=== PATIENT | male | born 1960 | race African-American/Black ===

== ENCOUNTER → 2017-05-21 09:09 | Emergency (ER) | payer OTHER | END | disposition left against medical advice (07) | LOC: ER 09:09 | DX: Z53.9 Procedure and treatment not carried out, unspecified reason (principal); M79.604 Pain in right leg ==

== ENCOUNTER 2018-02-17 08:00 | Emergency (ER) | payer SELFPAY ==
[2018-02-17] MEDS ORDERED: ASPIRIN 81 MG TABLET, CHEWABLE PO ONE (08:26)
[2018-02-17] MEDS ORDERED: NITROGLYCERIN 2% OINTMENT 1 GM PACKET TP ONE (08:43)
--- NOTE | 2018-02-17 09:01 | ER Document Report ---
ED General - General Chief Complaint: Chest Pain Stated Complaint: CHEST PAIN Time Seen by Provider: 02/17/18 08:27 Notes: 57-year-old male with a history of stents presents with chest pain onset last night at rest, left chest tightness radiating the left arm. 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 Apparently when he gets the pain he gets short of breath and diaphoretic. It is been intermittent since last night and the current episodes been going on for a couple of hours. Currently 4 out of 10. Patient was seen 2 years ago and ruled out for ACS as an inpatient but did not have a stress test as far as I can tell. TRAVEL OUTSIDE OF THE [place] IN LAST 30 DAYS: No - Related Data Allergies/Adverse Reactions: No Known Allergies Allergy (Verified 02/17/18 08:02) Past Medical History - Social History Smoking Status: Current Every Day Smoker Smoking Education Provided: Yes - The patient ED visit today was directly related to their abuse of tobacco. Family History: CAD, DM - Past Medical History Cardiac Medical History: Reports: Hx Coronary Artery Disease - History of 2 stents. On a blood thinner., Hx Hypertension Endocrine Medical History: Reports: Hx Diabetes Mellitus Type 2 Past Surgical History: Reports: Hx Cardiac Catheterization - w/ stents. Denies : Hx Cardiac Surgery - Immunizations Hx Diphtheria, Pertussis, Tetanus Vaccination: Yes Review of Systems - Review of Systems Notes: REVIEW OF SYSTEMS GEN: Denies fever, chills, weight loss ENT: Denies sore throat, nasal discharge, ear pain EYES: Denies blurry vision, eye pain, discharge CV: D has pain RESP: Denies cough, shortness of breath, wheezing GI: Denies abdominal pain, nausea, vomiting, diarrhea MSK: Denies joint pain/swelling, edema, SKIN: Denies rash, skin lesions LYMPH: Denies swollen glands/lymph nodes NEURO: Denies headache, focal weakness or numbness, dizziness PSYCH: Denies depression, suicidal or homicidal ideation PHYSICAL EXAMINATION General: No acute distress, well-nourished Head: Atraumatic, normocephalic ENT: Mouth normal, oropharynx moist, no exudates or tonsillar enlargement Eyes: Conjunctiva normal, pupils equal, lids normal Neck: No JVD, supple, no guarding CVS: Normal rate, regular rhythm, no murmurs Resp: No resp distress, equal and normal breath sounds bilaterally GI: Nondistended, soft, no tenderness to palpation, no rebound or guarding Ext: No deformities, no edema, normal range of motion in upper and lower ext Back: No CVA or midline TTP Skin: No rash, warm Lymphatic: No lymphadeopathy noted Neuro: Awake, alert. Face symmetric. GCS 15. Physical Exam - Vital signs Vitals: Temp Pulse Resp BP Pulse Ox 98.1 F 75 18 166/79 H 98 02/17/18 08:17 02/17/18 08:17 02/17/18 08:17 02/17/18 08:17 02/17/18 08:17 Course - Re-evaluation Re-evalutation: 02/17/18 09:01 Patient presents with typical chest pain in the setting of known coronary disease as well as [id number] blood pressure. EKG shows some T-wave inversions in the lateral precordial leads, J-point elevation anteriorly, these are all unchanged from prior. Concern for hypertensive urgency/unstable angina but no STEMI based on EKG. Will get troponin initially, treat with Nitropaste for blood pressure and pain and reassess. No clinical evidence for dissection at this time. 02/17/18 09:42 Patient's pain and blood pressure improved with nitroglycerin. His troponin is positive, ruling in an STEMI. He has been given aspirin already so I will add Lovenox and arrange transfer to [facility]. 02/17/18 13:36 Never heard back from [facility]. Spoke with Raffaele Saucedo who accepted patient. We will repeat a troponin if he is still in the ED. - Vital Signs Vital signs: Temp Pulse Resp BP Pulse Ox 98.1 F 75 17 163/89 H 97 02/17/18 08:17 02/17/18 08:17 02/17/18 11:01 02/17/18 11:01 02/17/18 11:01 - Laboratory Result Diagrams: 02/17/18 08:50 02/17/18 08:50 Laboratory results interpreted by me: 02/17/18 02/17/18 08:50 08:50 RDW 14.4 H Sodium 146.6 H - Diagnostic Test Radiology reviewed: Image reviewed, Reports reviewed - EKG Interpretation by Me EKG shows normal: Sinus rhythm Rate: Normal Rhythm: NSR Voltage: Consistant with LVH - J-point elevation V1 V2 similar to prior. ST depression lateral precordial leads similar to prior When compared to previous EKG there are: No significant change Critical Care Note - Critical Care Note Total time excluding time spent on procedures (mins): 32 Comments: The above patient is critically ill. Not including procedures, but including direct re-evaluations, speaking with patient and/or consultants, interpreting results, and documenting, I spent the total amount of minute listed listed above on critical care time Discharge - Discharge Clinical Impression: NSTEMI (non-ST elevated myocardial infarction), Tobacco abuse Condition: Critical Disposition: [facility] Admitting Provider: Hospitalist
[2018-02-17 09:10] LABS: ABSOLUTE BASOPHILS # (AUTO) 0.1 10^3/uL (0.0-0.2); ABSOLUTE EOSINOPHILS # (AUTO) 0.2 10^3/uL (0.0-0.6); ABSOLUTE LYMPHOCYTES (AUTO) 2.2 10^3/uL (0.5-4.7); ABSOLUTE MONOCYTES (AUTO) 0.5 10^3/uL (0.1-1.4); ABSOLUTE NEUT (AUTO) 2.9 10^3/uL (1.7-8.2); BASOPHILS % (AUTO) 1.5 % (0-2); EOSINOPHILS % (AUTO) 2.7 % (0-6); HEMATOCRIT 42.6 % (37.9-51.0); HEMOGLOBIN 14.2 g/dL (13.5-17.0); LYMPHOCYTES % (AUTO) 37.9 % (13-45); MEAN CORPUSCULAR HEMOGLOBIN 29.7 pg (27.0-33.4); MEAN CORPUSCULAR HGB CONC 33.4 g/dL (32.0-36.0); MEAN CORPUSCULAR VOLUME 89 fl (80-97); MONOCYTES % (AUTO) 8.1 % (3-13); PLATELET COUNT 257 10^3/uL (150-450); RED BLOOD COUNT 4.79 10^6/uL (4.35-5.55); RED CELL DISTRIBUTION WIDTH 14.4 % (11.5-14.0); SEGMENTED NEUTROPHILS % (AUTO) 49.8 % (42-78); TOTAL CELLS COUNTED % (AUTO) 100 %; WHITE BLOOD COUNT 5.9 10^3/uL (4.0-10.5)
--- NOTE | 2018-02-17 09:16 | RADIOLOGY REPORT (SQ) ---
EXAM DESCRIPTION: CHEST SINGLE VIEW COMPLETED DATE/TIME: 02/17/2018 8:37 am REASON FOR STUDY: CP COMPARISON: 08/27/2016, 06/03/2015, 12/22/2011 EXAM PARAMETERS: NUMBER OF VIEWS: One view. TECHNIQUE: Single frontal radiographic view of the chest acquired. RADIATION DOSE: NA LIMITATIONS: None. FINDINGS: LUNGS AND PLEURA: No opacities, masses or pneumothorax. No pleural effusion. MEDIASTINUM AND HILAR STRUCTURES: No masses. Contour normal. HEART AND VASCULAR STRUCTURES: Heart normal in size. Normal vasculature. BONES: No acute findings. HARDWARE: None in the chest. OTHER: No other significant finding. IMPRESSION: NO ACUTE RADIOGRAPHIC FINDING IN THE CHEST. TECHNICAL DOCUMENTATION: JOB ID: [id number] [employer]- All Rights Reserved Reading location - IP/workstation name: [email or web address]
[2018-02-17 09:32] LABS: ALANINE AMINOTRANSFERASE 24 U/L (21-72); ALBUMIN 4.2 g/dL (3.5-5.0); ALKALINE PHOSPHATASE 107 U/L (38-126); ANION GAP 12 (5-19); ASPARTATE AMINO TRANSFERASE 30 U/L (17-59); BILIRUBIN,DIRECT 0.2 mg/dL (0.0-0.4); BILIRUBIN,TOTAL 0.2 mg/dL (0.2-1.3); BLOOD UREA NITROGEN 15 mg/dL (7-20); CALCIUM 10.1 mg/dL (8.4-10.2); CARBON DIOXIDE 29 mmol/L (22-30); CHLORIDE 106 mmol/L (98-107); CREATINE KINASE 160 U/L (55-170); GLUCOSE 107 mg/dL (75-110); POTASSIUM 4.1 mmol/L (3.6-5.0); SODIUM 146.6 mmol/L (137-145); TOTAL PROTEIN 7.2 g/dL (6.3-8.2)
--- NOTE | 2018-02-17 09:35 | EKG REPORT ---
SEVERITY:- ABNORMAL ECG - SINUS RHYTHM LVH WITH SECONDARY REPOLARIZATION ABNORMALITY : Confirmed by: Endy Alvares 17-Feb-2018 09:35:02
[2018-02-17 09:36] LABS: CREATINE KINASE MB 1.48 ng/mL (<4.55)
[2018-02-17 09:39] LABS: TROPONIN I 0.218 ng/mL
[2018-02-17] MEDS ORDERED: ENOXAPARIN SODIUM INJ 100 MG/1 ML DISP.SYRIN SUBCUT SCH (10:00)
[2018-02-17 15:29] VITALS: BP 171/81
== END 2018-02-17 16:31 | disposition short-term general hospital (02) ==
LOC: ER 08:00
DX: I21.4 Non-ST elevation (NSTEMI) myocardial infarction (principal); R07.9 Chest pain, unspecified; F17.210 Nicotine dependence, cigarettes, uncomplicated; M79.602 Pain in left arm; R06.02 Shortness of breath; R61 Generalized hyperhidrosis; E11.9 Type 2 diabetes mellitus without complications; I25.10 Atherosclerotic heart disease of native coronary artery without angina pectoris
CPT/HCPCS: 93005; 99291; 96372; 36415; 82553; 82550; 85025; 80053; 84484; 71045; 93010; J1650

== ENCOUNTER 2018-03-10 09:30 | Emergency (ER) | payer SELFPAY ==
[2018-03-10] MEDS ORDERED: ASPIRIN 81 MG TABLET, CHEWABLE PO ONE (10:06)
--- NOTE | 2018-03-10 11:07 | RADIOLOGY REPORT (SQ) ---
EXAM DESCRIPTION: CHEST SINGLE VIEW COMPLETED DATE/TIME: 03/10/2018 10:46 am REASON FOR STUDY: Chest pain COMPARISON: 02/17/2018 EXAM PARAMETERS: NUMBER OF VIEWS: One view. TECHNIQUE: Single frontal radiographic view of the chest acquired. RADIATION DOSE: NA LIMITATIONS: None. FINDINGS: LUNGS AND PLEURA: No opacities, masses or pneumothorax. No pleural effusion. MEDIASTINUM AND HILAR STRUCTURES: No masses. Contour normal. HEART AND VASCULAR STRUCTURES: Cardiac silhouette appears mildly enlarged. BONES: No acute findings. HARDWARE: Patient is status post median sternotomy. OTHER: No other significant finding. IMPRESSION: No acute consolidations or pleural effusions. Cardiac silhouette appears mildly enlarge d. Other findings as noted above TECHNICAL DOCUMENTATION: JOB ID: [id number] [employer]- All Rights Reserved Reading location - IP/workstation name: [email or web address]
[2018-03-10 11:15] LABS: ALANINE AMINOTRANSFERASE 18 U/L (21-72); ALBUMIN 3.1 g/dL (3.5-5.0); ALKALINE PHOSPHATASE 121 U/L (38-126); ANION GAP 13 (5-19); ASPARTATE AMINO TRANSFERASE 22 U/L (17-59); BILIRUBIN,DIRECT 0.4 mg/dL (0.0-0.4); BILIRUBIN,TOTAL 0.5 mg/dL (0.2-1.3); BLOOD UREA NITROGEN 15 mg/dL (7-20); CALCIUM 9.1 mg/dL (8.4-10.2); CARBON DIOXIDE 30 mmol/L (22-30); CHLORIDE 95 mmol/L (98-107); CREATINE KINASE 50 U/L (55-170); POTASSIUM 4.9 mmol/L (3.6-5.0); SODIUM 138.1 mmol/L (137-145); TOTAL PROTEIN 5.8 g/dL (6.3-8.2)
[2018-03-10 11:17] LABS: ABSOLUTE BASOPHILS # (AUTO) 0.1 10^3/uL (0.0-0.2); ABSOLUTE EOSINOPHILS # (AUTO) 0.2 10^3/uL (0.0-0.6); ABSOLUTE LYMPHOCYTES (AUTO) 1.3 10^3/uL (0.5-4.7); ABSOLUTE MONOCYTES (AUTO) 0.6 10^3/uL (0.1-1.4); BASOPHILS % (AUTO) 0.5 % (0-2); EOSINOPHILS % (AUTO) 1.6 % (0-6); HEMATOCRIT 24.1 % (37.9-51.0); LYMPHOCYTES % (AUTO) 13.1 % (13-45); MEAN CORPUSCULAR HEMOGLOBIN 29.3 pg (27.0-33.4); MEAN CORPUSCULAR HGB CONC 32.5 g/dL (32.0-36.0); MEAN CORPUSCULAR VOLUME 90 fl (80-97); MONOCYTES % (AUTO) 5.5 % (3-13); PLATELET COUNT 362 10^3/uL (150-450); RED BLOOD COUNT 2.66 10^6/uL (4.35-5.55); RED CELL DISTRIBUTION WIDTH 14.3 % (11.5-14.0); SEGMENTED NEUTROPHILS % (AUTO) 79.3 % (42-78); TOTAL CELLS COUNTED % (AUTO) 100 %; WHITE BLOOD COUNT 10.1 10^3/uL (4.0-10.5)
[2018-03-10 11:23] LABS: GLUCOSE 409 mg/dL (75-110)
[2018-03-10 11:25] LABS: CREATINE KINASE MB 0.61 ng/mL (<4.55)
[2018-03-10 11:27] LABS: TROPONIN I 0.039 ng/mL
[2018-03-10 11:29] LABS: HEMOGLOBIN 7.8 g/dL (13.5-17.0)
[2018-03-10] MEDS ORDERED: INSULIN REG, HUMAN 100 UNIT/ML 3 ML VIAL (PYX) IV ONE (12:04)
--- NOTE | 2018-03-10 12:59 | EKG REPORT ---
SEVERITY:- ABNORMAL ECG - SINUS RHYTHM PROBABLE LEFT ATRIAL ABNORMALITY LVH WITH SECONDARY REPOLARIZATION ABNORMALITY : Confirmed by: Sathish Spann MD 10-Mar-2018 12:58:53
--- NOTE | 2018-03-10 14:20 | ER Document Report ---
ED Cardiac - General Chief Complaint: Chest Tightness Stated Complaint: CHEST PAIN Time Seen by Provider: 03/10/18 09:52 Mode of Arrival: Ambulatory Information source: Patient Notes: History of present illness-58 years old male who had a coronary artery bypass surgery 1 week ago, this morning started having pain and discomfort over the epigastric region lasted for a while and then dissipated. But came to ED check make sure that is not his heart. He does not have any chest pain now. Or difficulty in breathing or nausea vomiting. No other constitutional symptoms. REVIEW OF SYSTEMS: CONSTITUTIONAL : Denies fever, chills, or sweats. Denies recent illness. EENT: Denies eye, ear, throat, or mouth pain or symptoms. Denies nasal or sinus congestion or discharge. Denies throat, tongue, or mouth swelling or difficulty swallowing. CARDIOVASCULAR: Denies chest pain. Denies palpitations or racing or irregular heart beat. Denies ankle edema. RESPIRATORY: Denies cough, cold, or chest congestion. Denies shortness of breath, difficulty breathing, or wheezing. GASTROINTESTINAL: Denies abdominal pain or distention. Denies nausea, vomiting , or diarrhea. Denies blood in vomitus, stools, or per rectum. Denies black, tarry stools. Denies constipation. GENITOURINARY: Denies difficulty urinating, painful urination, burning, frequency, blood in urine, or discharge. MUSCULOSKELETAL: Denies back or neck pain or stiffness. Denies joint pain or swelling. SKIN: Denies rash, lesions or sores. HEMATOLOGIC : Denies easy bruising or bleeding. LYMPHATIC: Denies swollen, enlarged glands. NEUROLOGICAL: Denies confusion or altered mental status. Denies passing out or loss of consciousness. Denies dizziness or lightheadedness. Denies headache. Denies weakness or paralysis or loss of use of either side. Denies problems with gait or speech. Denies sensory loss, numbness, or tingling. Denies seizures. PSYCHIATRIC: Denies anxiety or stress. Denies depression, suicidal ideation, or homicidal ideation. ALL OTHER SYSTEMS REVIEWED AND NEGATIVE. Dictation was performed using [employer] recognition software PHYSICAL EXAMINATION: GENERAL: Well-appearing, well-nourished and in no acute distress. HEAD: Atraumatic, normocephalic. EYES: Pupils equal round and reactive to light, extraocular movements intact, sclera anicteric, conjunctiva are normal. ENT: Nares patent, oropharynx clear without exudates. Moist mucous membranes. NECK: Normal range of motion, supple without lymphadenopathy Chest wall-postop chest wall tenderness noted, wound has healed very well. LUNGS: Breath sounds clear to auscultation bilaterally and equal. No wheezes rales or rhonchi. HEART: Regular rate and rhythm without murmurs ABDOMEN: Soft, nontender, nondistended abdomen. No guarding, no rebound. No masses appreciated. Musculoskeletal: Normal range of motion, no pitting or edema. No cyanosis. NEUROLOGICAL: Cranial nerves grossly intact. Normal speech, normal gait. Normal sensory, motor exams PSYCH: Normal mood, normal affect. SKIN: Warm, Dry, normal turgor, no rashes or lesions noted. TRAVEL OUTSIDE OF THE [place] IN LAST 30 DAYS: No - HPI Patient complains to provider of: denies: Chest pain, Chest tightness, Palpitations, Shortness of breath, Other Use of: denies: Alcohol, Amphetamines, Bath salts, Caffeine, Cocaine, Decongestants, Other Chest pain location: No: Substernal, Axillary, Back, Pleuritic, Under breast, Other Quality of pain: denies: None, Constant, Intermittent, Mild, Moderate, Severe, Achy, Burning, Constriction, Cramping, Crushing, Dull, Heaviness, Incisional, Indigestion, Numbness, Pressure, Radiating, Sharp, Stabbing, Tearing, Throbbing , Tightness, Tingling, Other Chest pain radiation location: denies: Left jaw, Left arm, Left shoulder, Right jaw, Right arm, Right shoulder, Back, Neck, None Severity now: Mild Pain level currently: 1 Cardiac risk factors: denies: None, Diabetes, Hypertension, Smoker, + Family history, Dyslipidemia, Hx CHF, Hx VT Associated symptoms: denies: None, Abdominal pain, Anxiety, Back pain, Cool extremities, Diaphoresis, Dizziness, Edema, Fatigue, Fever/chills, Headache, Heartburn, Hypotension, Jaw pain, Lightheaded, Nausea/vomiting, Neck pain, Palpitations, Rash, Shortness of breath, Swelling/lump in chest, Syncope, Weakness, Other Exacerbated by: denies: Denies, Sitting, Standing, Activity, Emotional stress, Coughing, Deep breaths, Torso movement, Lying flat, Other - Related Data Allergies/Adverse Reactions: No Known Allergies Allergy (Verified 02/17/18 08:02) Past Medical History - Social History Smoking Status: Former Smoker Cigarette use (# per day): No Chew tobacco use (# tins/day): No Smoking Education Provided: No Drug Abuse: denies: None, Bath salts, Cocaine, Heroin, Marijuana, Methamphetamine, Prescription drugs, Other Lives with: Family Family History: CAD, DM - Past Medical History Cardiac Medical History: Reports: Hx Coronary Artery Disease - History of 2 stents. On a blood thinner., Hx Hypertension Pulmonary Medical History: Denies: None, Hx Asthma, Hx Bronchitis, Hx COPD, Hx Pneumonia, Hx Intubation , Hx Respiratory Failure, Hx Sleep Apnea, Hx Tuberculosis, Other EENT Medical History: Denies: None, Eyes, Ears, Nose, Throat, Other Neurological Medical History: Denies: None, Hx Cerebrovascular Accident, Hx Migraine, Hx Seizures, Other Endocrine Medical History: Reports: Hx Diabetes Mellitus Type 2 Renal/ Medical History: Denies: Hx Peritoneal Dialysis Past Surgical History: Reports: Hx Cardiac Catheterization - w/ stents. Denies : Hx Cardiac Surgery - Immunizations Hx Diphtheria, Pertussis, Tetanus Vaccination: Yes Review of Systems - Review of Systems Constitutional: denies: No symptoms reported, See HPI, Chills, Diaphoresis, Fever, Malaise, Weakness, Other, Weight gain, Weight loss, Recent illness EENT: denies: No symptoms reported, See HPI, Eye pain, Eye discharge, Blurred vision, Tearing, Double vision, Ear pain, Ear discharge, Nose pain, Nose congestion, Nose discharge, Sinus pressure, Sinus discharge, Throat pain, Difficulty swallowing, Throat swelling, Mouth pain, Mouth swelling, Dental problem, Vertigo, Other Cardiovascular: denies: No symptoms reported, See HPI, Chest pain, Palpitations , Heart racing, Orthopnea, Dyspnea, Syncope, Dizziness, Lightheaded, Edema, Other, Paroxysmal Nocturnal Dysp Gastrointestinal: denies: No symptoms reported, See HPI, Abdomen distended, Abdominal pain, Diarrhea, Nausea, Vomiting, Constipation, Blood streaked bowels , Poor appetite, Poor fluid intake, Blood in vomit, Black stools, Rectal bleeding, Last bowel movement, Fecal incontinence, Other Genitourinary: No symptoms reported. denies: See HPI, Burning, Dysuria, Discharge, Frequency, Flank pain, Hematuria, Incontinence, Pain, Urgency, Retention, Other Male Genitourinary: denies: No symptoms reported, See HPI, Erectile dysfunction , Testicular pain, Penile discharge, Other Musculoskeletal: denies: No symptoms reported, See HPI, Back pain, Gout, Joint pain, Joint swelling, Muscle pain, Muscle stiffness, Neck pain, Deformity, Leg swelling, Ankle swelling, Other Skin: denies: No symptoms reported, See HPI, Change in color, Change in hair/ nails, Dryness, Lesions, Lumps, Rash, Other Hematologic/Lymphatic: denies: No symptoms reported, See HPI, Anemia, Blood clots, Easy bleeding, Easy bruising, Enlarged lymph nodes, Swollen glands, Other Neurological/Psychological: denies: No symptoms reported, See HPI, Confusion, Dementia, Depression, Hallucinations, Anxiety, Homicidal ideation, Sensory change, Weakness, Gait changes, Loss of power, Paralysis, Seizure, Lost consciousness, Headaches, Speech impairment, Numbness, Suicidal ideation, Tingling, Tremor, Other Physical Exam - Vital signs Vitals: Temp Pulse Resp Pulse Ox 98.4 F 72 16 96 03/10/18 09:36 03/10/18 09:36 03/10/18 09:36 03/10/18 09:36 Course - Re-evaluation Re-evalutation: 03/10/18 14:55 Second set of enzymes as come down lower. Patient remains comfortable. - Vital Signs Vital signs: Temp Pulse Resp BP Pulse Ox 98.7 F 74 17 177/70 H 96 03/10/18 09:37 03/10/18 09:37 03/10/18 09:37 03/10/18 09:37 03/10/18 10:06 - Laboratory Result Diagrams: 03/10/18 10:30 03/10/18 10:30 Laboratory results interpreted by me: 03/10/18 03/10/18 10:30 10:30 RBC 2.66 L Hgb 7.8 L Hct 24.1 L RDW 14.3 H Seg Neutrophils % 79.3 H Chloride 95 L Glucose 409 H* ALT 18 L Creatine Kinase 50 L Total Protein 5.8 L Albumin 3.1 L - Diagnostic Test Radiology reviewed: Reports reviewed - Chest x-ray did not show any infiltration effusion or pneumothorax Discharge - Discharge Clinical Impression: Chest wall pain, Diabetes 1.5, managed as type 2 Condition: Fair Instructions: Chest Wall Pain ([facility]) Prescriptions: Metformin HCl [Glucophage 500 mg Tablet] 1,000 mg PO BID #60 tablet Referrals: ALVIN HARPER MD [Primary Care Provider] - Follow up as needed
[2018-03-10 15:30] VITALS: BP 164/74
== END 2018-03-10 15:30 | disposition home or self-care (01) ==
LOC: ER 09:30
DX: R07.89 Other chest pain (principal); E11.9 Type 2 diabetes mellitus without complications; I10 Essential (primary) hypertension; I25.10 Atherosclerotic heart disease of native coronary artery without angina pectoris; Z87.891 Personal history of nicotine dependence; Z95.1 Presence of aortocoronary bypass graft; Z95.5 Presence of coronary angioplasty implant and graft
CPT/HCPCS: 93005; 99284; 36415; 82553; 82550; 85025; 80053; 84484; 71045; 93010; J1815

== ENCOUNTER → 2019-03-17 | Outpatient (CLI) | payer MEDICAID ==
[2019-03-17 09:49] LABS: HEMOGLOBIN 12.1 g/dL (13.5-17.0); MEAN CORPUSCULAR HEMOGLOBIN 26.5 pg (27.0-33.4); MEAN CORPUSCULAR HGB CONC 31.8 g/dL (32.0-36.0); MEAN CORPUSCULAR VOLUME 83 fl (80-97); PLATELET COUNT 281 10^3/uL (150-450); RED BLOOD COUNT 4.56 10^6/uL (4.35-5.55); RED CELL DISTRIBUTION WIDTH 15.7 % (11.5-14.0); WHITE BLOOD COUNT 5.8 10^3/uL (4.0-10.5)
[2019-03-17 10:17] LABS: ALANINE AMINOTRANSFERASE 17 U/L (21-72); ALKALINE PHOSPHATASE 106 U/L (38-126); ANION GAP 10 (5-19); ASPARTATE AMINO TRANSFERASE 17 U/L (17-59); BILIRUBIN,DIRECT 0.2 mg/dL (0.0-0.4); BILIRUBIN,TOTAL 0.2 mg/dL (0.2-1.3); BLOOD UREA NITROGEN 16 mg/dL (7-20); CALCIUM 10.2 mg/dL (8.4-10.2); CARBON DIOXIDE 25 mmol/L (22-30); CHLORIDE 108 mmol/L (98-107); GLUCOSE 190 mg/dL (75-110); POTASSIUM 5.2 mmol/L (3.6-5.0); SODIUM 142.8 mmol/L (137-145); TOTAL PROTEIN 7.6 g/dL (6.3-8.2); TRIGLYCERIDES 164 mg/dL (<150)
[2019-03-17 10:24] LABS: VLDL CHOLESTEROL 32.8 mg/dL (10-31)
[2019-03-17 10:42] LABS: DIRECT LDL 54 mg/dL (<100)
[2019-03-18 10:37] LABS: CREATININE URINE 71.8 mg/dL (Not Estab.); MICROALBUMIN URINE 35.7 ug/mL (Not Estab.)
== END ==
LOC: OD 08:42
PROVIDERS: ATTEND Family Medicine Geriatric Medicine
DX: E11.9 Type 2 diabetes mellitus without complications (principal); E78.5 Hyperlipidemia, unspecified; I10 Essential (primary) hypertension; Z79.899 Other long term (current) drug therapy
CPT/HCPCS: 36415; 80053; 80061; 82043; 82570; 83036; 84443; 85027

== ENCOUNTER → 2019-06-08 | Outpatient (CLI) | payer MEDICAID ==
[2019-06-08 08:29] LABS: ABSOLUTE BASOPHILS # (AUTO) 0.1 10^3/uL (0.0-0.2); ABSOLUTE EOSINOPHILS # (AUTO) 0.2 10^3/uL (0.0-0.6); ABSOLUTE LYMPHOCYTES (AUTO) 2.2 10^3/uL (0.5-4.7); ABSOLUTE MONOCYTES (AUTO) 0.4 10^3/uL (0.1-1.4); ABSOLUTE NEUT (AUTO) 2.7 10^3/uL (1.7-8.2); BASOPHILS % (AUTO) 1.2 % (0-2); EOSINOPHILS % (AUTO) 3.4 % (0-6); HEMATOCRIT 36.8 % (37.9-51.0); LYMPHOCYTES % (AUTO) 40.1 % (13-45); MEAN CORPUSCULAR HEMOGLOBIN 27.4 pg (27.0-33.4); MEAN CORPUSCULAR HGB CONC 32.6 g/dL (32.0-36.0); MEAN CORPUSCULAR VOLUME 84 fl (80-97); MONOCYTES % (AUTO) 6.6 % (3-13); PLATELET COUNT 250 10^3/uL (150-450); RED BLOOD COUNT 4.38 10^6/uL (4.35-5.55); RED CELL DISTRIBUTION WIDTH 15.6 % (11.5-14.0); SEGMENTED NEUTROPHILS % (AUTO) 48.7 % (42-78); TOTAL CELLS COUNTED % (AUTO) 100 %; WHITE BLOOD COUNT 5.5 10^3/uL (4.0-10.5)
[2019-06-08 09:07] LABS: ANION GAP 8 (5-19); BLOOD UREA NITROGEN 18 mg/dL (7-20); CALCIUM 9.6 mg/dL (8.4-10.2); CARBON DIOXIDE 27 mmol/L (22-30); CHLORIDE 105 mmol/L (98-107); GLUCOSE 197 mg/dL (75-110); POTASSIUM 4.8 mmol/L (3.6-5.0)
== END ==
LOC: OD 07:13
PROVIDERS: ATTEND Family Medicine
DX: E11.59 Type 2 diabetes mellitus with other circulatory complications (principal); R31.9 Hematuria, unspecified
CPT/HCPCS: 36415; 80048; 83036; 85025

== ENCOUNTER 2019-12-05 07:16 | Emergency (ER) | payer OTHER, MEDICAID ==
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
[2019-12-05 11:31] VITALS: BP 175/80
== END 2019-12-05 11:31 | disposition home or self-care (01) ==
LOC: ER 07:16
DX: S39.012A Strain of muscle, fascia and tendon of lower back, initial encounter (principal); R07.81 Pleurodynia; F17.210 Nicotine dependence, cigarettes, uncomplicated; V59.40XA Driver of pick-up truck or van injured in collision with unspecified motor vehicles in traffic accident, initial encounter; E11.9 Type 2 diabetes mellitus without complications; Z95.1 Presence of aortocoronary bypass graft
CPT/HCPCS: 71046; 72110; 99283

== ENCOUNTER → 2019-12-24 | Outpatient (CLI) | payer MEDICAID, OTHER ==
[2019-12-24 10:52] LABS: ABSOLUTE BASOPHILS # (AUTO) 0.1 10^3/uL (0.0-0.2); ABSOLUTE EOSINOPHILS # (AUTO) 0.2 10^3/uL (0.0-0.6); ABSOLUTE LYMPHOCYTES (AUTO) 1.5 10^3/uL (0.5-4.7); ABSOLUTE MONOCYTES (AUTO) 0.3 10^3/uL (0.1-1.4); ABSOLUTE NEUT (AUTO) 2.2 10^3/uL (1.7-8.2); BASOPHILS % (AUTO) 1.3 % (0-2); EOSINOPHILS % (AUTO) 5.8 % (0-6); HEMATOCRIT 36.4 % (37.9-51.0); HEMOGLOBIN 11.9 g/dL (13.5-17.0); LYMPHOCYTES % (AUTO) 35.2 % (13-45); MEAN CORPUSCULAR HEMOGLOBIN 28.7 pg (27.0-33.4); MEAN CORPUSCULAR HGB CONC 32.7 g/dL (32.0-36.0); MEAN CORPUSCULAR VOLUME 88 fl (80-97); MONOCYTES % (AUTO) 7.1 % (3-13); PLATELET COUNT 204 10^3/uL (150-450); RED BLOOD COUNT 4.16 10^6/uL (4.35-5.55); RED CELL DISTRIBUTION WIDTH 16.6 % (11.5-14.0); SEGMENTED NEUTROPHILS % (AUTO) 50.6 % (42-78); TOTAL CELLS COUNTED % (AUTO) 100 %; WHITE BLOOD COUNT 4.3 10^3/uL (4.0-10.5)
[2019-12-24 10:54] LABS: ALBUMIN 3.9 g/dL (3.5-5.0); ALKALINE PHOSPHATASE 86 U/L (38-126); ANION GAP 6 (5-19); ASPARTATE AMINO TRANSFERASE 29 U/L (17-59); BILIRUBIN,DIRECT 0.4 mg/dL (0.0-0.4); BILIRUBIN,TOTAL 0.5 mg/dL (0.2-1.3); BLOOD UREA NITROGEN 15 mg/dL (7-20); CALCIUM 9.6 mg/dL (8.4-10.2); CARBON DIOXIDE 29 mmol/L (22-30); CHLORIDE 108 mmol/L (98-107); CHOLESTEROL 119.68 mg/dL (0-200); GLUCOSE 108 mg/dL (75-110); POTASSIUM 4.9 mmol/L (3.6-5.0); TRIGLYCERIDES 114 mg/dL (<150)
[2019-12-24 11:06] LABS: DIRECT LDL 67 mg/dL (<100)
[2019-12-26 02:36] LABS: CREATININE URINE 121.4 mg/dL (Not Estab.); MICROALBUMIN URINE 10.5 ug/mL (Not Estab.)
== END ==
LOC: OD 08:29
PROVIDERS: ATTEND Family Medicine Geriatric Medicine
DX: I10 Essential (primary) hypertension (principal); E11.9 Type 2 diabetes mellitus without complications; E78.5 Hyperlipidemia, unspecified; Z79.899 Other long term (current) drug therapy
CPT/HCPCS: 36415; 80053; 80061; 82043; 82570; 83036; 85025

== ENCOUNTER 2020-06-06 09:47 | Inpatient (IN) | payer MEDICAID ==
[2020-06-06] MEDS ORDERED: VANCOMYCIN HCL INJ 1000 MG VIAL IV ONE (10:33)
--- NOTE | 2020-06-06 10:35 | ER Document Report ---
ED Extremity Problem, Lower - General Chief Complaint: Foot Pain Stated Complaint: TOE PAIN Time Seen by Provider: 06/06/20 10:15 Primary Care Provider: AMBAR WALLACE MD [Primary Care Provider] - Follow up as needed Notes: HPI: 60-year-old diabetic male who presents today stating around 2 weeks ago he cut a "corn" of his left pinky toe. He states since that time is when foot has swollen up. He denies any fevers or vomiting. He states he has some peripheral neuropathy at baseline. He denies any other trauma to his foot. ROS: See HPI All other review of systems reviewed and otherwise negative Reviewed vital signs and nursing note as charted by RN. PHYSICAL EXAM: CONSTITUTIONAL: Alert and oriented and responds appropriately to questions. Well-appearing; well-nourished HEAD: Normocephalic; atraumatic CARD: Regular rate and rhythm; no murmurs; symmetric distal pulses RESP: Normal chest excursion without splinting or tachypnea; breath sounds clear and equal bilaterally; no wheezes, no rhonchi, no rales EXT: Patient has some nonpitting edema to the left foot as well as an ulcer-like lesion to the dorsal aspect of the left fifth toe as well as to the medial aspect of the left fifth toe on the lateral aspect of the fourth toe SKIN: No acute lesions noted NEURO: CN 2-12 intact; 5/5 bilateral upper and lower extremity strength with sensation intact to light touch PSYCH: The patient's mood and manner are appropriate. Grooming and personal hygiene are appropriate. TRAVEL OUTSIDE OF THE [place] IN LAST 30 DAYS: No - Related Data Allergies/Adverse Reactions: No Known Allergies Allergy (Verified 06/06/20 10:29) Home Medications: htn. blood thinner Past Medical History - Social History Smoking Status: Current Every Day Smoker Chew tobacco use (# tins/day): No Frequency of alcohol use: None Drug Abuse: None Family History: CAD, DM Patient has homicidal ideation: No - Past Medical History Cardiac Medical History: Reports: Hx Coronary Artery Disease - History of 2 stents. On a blood thinner., Hx Hypertension Pulmonary Medical History: Denies: Hx Asthma, Hx Bronchitis, Hx COPD, Hx Pneumonia, Hx Intubation, Hx Respiratory Failure, Hx Sleep Apnea, Hx Tuberculosis Neurological Medical History: Denies: Hx Cerebrovascular Accident, Hx Migraine, Hx Seizures Endocrine Medical History: Reports: Hx Diabetes Mellitus Type 2 Renal/ Medical History: Denies: Hx Peritoneal Dialysis Past Surgical History: Reports: Hx Cardiac Catheterization - w/ stents. Denies: Hx Cardiac Surgery - Immunizations Hx Diphtheria, Pertussis, Tetanus Vaccination: Yes Physical Exam - Vital signs Vitals: Temp Pulse Resp BP Pulse Ox 98.5 F 83 16 169/89 H 100 06/06/20 09:51 06/06/20 09:51 06/06/20 09:51 06/06/20 09:51 06/06/20 09:51 Course - Re-evaluation Re-evalutation: 06/06/20 10:35 Given the above history and physical I am concerned about the possibility of a diabetic foot infection. I will obtain basic labs as well as an x-ray of the foot to evaluate for osteomyelitis. I will provide a dose of antibiotics at this time. 06/06/20 11:43 I called and spoke directly to Dr. Davis. He states he himself actually sent the patient here 2 days ago to be admitted but the patient did not come directly here and waited at home. He would like the patient admitted for IV antibiotics. - Vital Signs Vital signs: Temp Pulse Resp BP Pulse Ox 98.5 F 83 16 169/89 H 100 06/06/20 09:51 06/06/20 09:51 06/06/20 09:51 06/06/20 09:51 06/06/20 09:51 - Laboratory Result Diagrams: 06/06/20 10:30 06/06/20 10:30 Laboratory results interpreted by me: 06/06/20 06/06/20 10:30 10:30 RBC 3.47 L Hgb 10.8 L Hct 33.1 L RDW 15.5 H Eos % (Auto) 7.5 H Chloride 109 H Glucose 230 H Discharge - Discharge Clinical Impression: Diabetic infection of left foot Condition: Good Disposition: ADMITTED OBSERVATION Admitting Provider: Luis (Hospitalist) Unit Admitted: Medical Floor Referrals: AMBAR WALLACE MD [Primary Care Provider] - Follow up as needed
[2020-06-06 10:52] LABS: ABSOLUTE BASOPHILS # (AUTO) 0.1 10^3/uL (0.0-0.2); ABSOLUTE EOSINOPHILS # (AUTO) 0.4 10^3/uL (0.0-0.6); ABSOLUTE LYMPHOCYTES (AUTO) 1.4 10^3/uL (0.5-4.7); ABSOLUTE MONOCYTES (AUTO) 0.4 10^3/uL (0.1-1.4); ABSOLUTE NEUT (AUTO) 3.4 10^3/uL (1.7-8.2); BASOPHILS % (AUTO) 1.2 % (0-2); EOSINOPHILS % (AUTO) 7.5 % (0-6); HEMATOCRIT 33.1 % (37.9-51.0); HEMOGLOBIN 10.8 g/dL (13.5-17.0); LYMPHOCYTES % (AUTO) 23.7 % (13-45); MEAN CORPUSCULAR HEMOGLOBIN 31.1 pg (27.0-33.4); MEAN CORPUSCULAR HGB CONC 32.5 g/dL (32.0-36.0); MEAN CORPUSCULAR VOLUME 96 fl (80-97); MONOCYTES % (AUTO) 7.8 % (3-13); PLATELET COUNT 260 10^3/uL (150-450); RED BLOOD COUNT 3.47 10^6/uL (4.35-5.55); RED CELL DISTRIBUTION WIDTH 15.5 % (11.5-14.0); SEGMENTED NEUTROPHILS % (AUTO) 59.8 % (42-78); TOTAL CELLS COUNTED % (AUTO) 100 %; WHITE BLOOD COUNT 5.7 10^3/uL (4.0-10.5)
[2020-06-06 11:17] LABS: ANION GAP 7 (5-19); BLOOD UREA NITROGEN 17 mg/dL (7-20); CALCIUM 9.1 mg/dL (8.4-10.2); CARBON DIOXIDE 24 mmol/L (22-30); CHLORIDE 109 mmol/L (98-107); GLUCOSE 230 mg/dL (75-110); POTASSIUM 4.1 mmol/L (3.6-5.0)
--- NOTE | 2020-06-06 11:18 | RADIOLOGY REPORT (SQ) ---
EXAM DESCRIPTION: FOOT LEFT COMPLETE IMAGES COMPLETED DATE/TIME: 06/06/2020 11:03 am REASON FOR STUDY: 11; ulcers to left 4th and 5th toes; diabetes COMPARISON: None. NUMBER OF VIEWS: Three views. TECHNIQUE: AP, lateral and oblique radiographic images acquired of the left foot. LIMITATIONS: None. FINDINGS: MINERALIZATION: Normal. BONES: Hallux valgus deformity. No acute fracture or dislocation. No conventional radiographic evid ence of osteomyelitis. JOINTS: No effusions. SOFT TISSUES: No soft tissue swelling. No foreign body. OTHER: No other significant finding. IMPRESSION: No conventional radiographic evidence of osteomyelitis. TECHNICAL DOCUMENTATION: JOB ID: [id number] 2010 [employer]- All Rights Reserved Reading location - IP/workstation name: [email or web address]
[2020-06-06] MEDS ORDERED: VANCOMYCIN HCL 0 MG in DEXTROSE 5%-WATER 250 ML IV NR (12:45)
--- NOTE | 2020-06-06 12:45 | PDOC H&P ---
History of Present Illness Admission Date/PCP: 06/06/20 12:39 AMBAR WALLACE MD Patient complains of: Left foot pain History of Present Illness: ELISA WHITFIELD is a 60 year old male presented to the ED at the request of his PCP for left fourth and fifth toe wounds with associated cellulitis. According to the patient he had a "corn" removed from his left "little toe" approximately 2 weeks ago. Subsequently the wound did not heal as expected and the patient developed worsening pain in his left foot. He returned to his PCPs office and was advised to present to the ED for evaluation and treatment. The patient denies fever and chills as well as drainage from the wounds. He does report swelling and pain with ambulation. In the ED an x-ray was completed which revealed normal mineralization with no radiographic evidence of osteomyelitis. The hospitalist service was requested to admit the patient for further evaluation and treatment. Past Medical History Cardiac Medical History: Reports: Coronary Artery Disease - History of 2 stents and CABG x 3 in 2018, Hyperlipidema, Hypertension Pulmonary Medical History: Denies: Asthma, Bronchitis, Chronic Obstructive Pulmonary Disease (COPD), Intubation, Pneumonia, Respiratory Failure, Sleep Apnea, Tuberculosis EENT Medical History: Denies: Cataracts Neurological Medical History: Denies: Hemorrhagic CVA, Ischemic CVA, Migraine, Seizures Endocrine Medical History: Reports: Diabetes Mellitus Type 2 Renal/ Medical History: Denies: Chronic Kidney Disease Malignancy Medical History: Reports: None GI Medical History: Reports: None Musculoskeltal Medical History: Reports: None Skin Medical History: Reports: None Psychiatric Medical History: Denies: Alcohol Dependency, Substance Abuse Traumatic Medical History: Reports: None Hematology: Reports: None Infectious Medical History: Reports: None Past Surgical History Past Surgical History: Reports: Cardiac Catheterization - w/ stents, Coronary Artery Bypass Graft Social History Information Source: Patient, Relative - Paitent's Lives with: Spouse/Significant other Smoking Status: Current Every Day Smoker Electronic Cigarette use?: No Frequency of Alcohol Use: Occasional Hx Recreational Drug Use: No Drugs: None Family History Family History: CAD, DM Parental Family History Reviewed: Yes Children Family History Reviewed: Yes Sibling(s) Family History Reviewed.: Yes Medication/Allergy Home Medications: Lisinopril 20 mg PO DAILY 08/27/16 Aspirin [Ecotrin 81 mg EC Tablet] 81 mg PO DAILY tabec 08/28/16 Clopidogrel Bisulfate [Plavix 75 mg Tablet] 75 mg PO DAILY tablet 08/28/16 Metformin HCl [Glucophage 500 mg Tablet] 1,000 mg PO BID #60 tablet 03/10/18 Atorvastatin Calcium [Lipitor 40 mg Tablet] 40 mg PO QHS 06/06/20 Metoprolol Tartrate [Lopressor 25 mg Tablet] 25 mg PO Q12 06/06/20 Allergies/Adverse Reactions: No Known Allergies Allergy (Verified 06/06/20 10:29) Review of Systems Constitutional: ABSENT: anorexia, chills, fatigue, fever(s), night sweats Eyes: ABSENT: visual disturbances Ears: ABSENT: hearing changes Nose, Mouth, and Throat: PRESENT: other - Poor dentition Cardiovascular: PRESENT: edema - Left foot. ABSENT: chest pain, dyspnea on exertion, orthropnea Respiratory: ABSENT: cough, dyspnea Gastrointestinal: ABSENT: abdominal pain, bloating, coffee ground emesis, constipation, diarrhea, dysphagia, heartburn, hematochezia, melena, nausea, vomiting Musculoskeletal: ABSENT: back pain Integumentary: PRESENT: wounds - Left fourth toe (lateral aspect) with wound noted. Left fifth toe (lateral aspect) with 1 cm x 1 cm open wound approximately 1 cm deep. Erythema noted. No exudate.. ABSENT: diaphoresis Neurological: PRESENT: abnormal gait - 2/2 pain. ABSENT: abnormal speech, frequent falls, memory loss, numbness, paresthesias Psychiatric: ABSENT: anxiety, depression, homidical ideation, suicidal ideation Endocrine: ABSENT: cold intolerance, heat intolerance, polyphagia, polyuria Physical Exam Vital Signs: Temp Pulse Resp BP Pulse Ox 98.5 F 83 16 169/89 H 100 06/06/20 09:51 06/06/20 09:51 06/06/20 09:51 06/06/20 09:51 06/06/20 09:51 Intake & Output 06/05/20 06/06/20 06/07/20 06:59 06:59 06:59 Weight 85.9 kg General appearance: PRESENT: no acute distress, cooperative, well-developed, well-nourished Head exam: PRESENT: atraumatic, normocephalic Eye exam: PRESENT: conjunctiva pink, EOMI, PERRLA Mouth exam: PRESENT: moist, tongue midline Teeth exam: PRESENT: poor dentation Neck exam: PRESENT: full ROM. ABSENT: JVD Respiratory exam: PRESENT: clear to auscultation carole, symmetrical, unlabored. ABSENT: accessory muscle use Cardiovascular exam: PRESENT: irregular rhythm, +S1, +S2 Pulses: PRESENT: normal carotid pulses, other - Pedal pulses 1+/- carole Vascular exam: PRESENT: normal capillary refill GI/Abdominal exam: PRESENT: normal bowel sounds, soft. ABSENT: distended, tenderness Rectal exam: PRESENT: deferred Extremities exam: PRESENT: full ROM, other - 1+ edema left foot. ABSENT: calf tenderness Neurological exam: PRESENT: alert, awake, oriented to person, oriented to place, oriented to time, oriented to situation, CN II-XII grossly intact Psychiatric exam: PRESENT: appropriate affect, normal mood. ABSENT: agitated, anxious Skin exam: PRESENT: dry, warm Results Laboratory Results: 06/06/20 10:30 06/06/20 10:30 06/06/20 06/06/20 10:30 10:30 WBC 5.7 RBC 3.47 L Hgb 10.8 L Hct 33.1 L MCV 96 MCH 31.1 MCHC 32.5 RDW 15.5 H Plt Count 260 Seg Neutrophils % 59.8 Sodium 139.6 Potassium 4.1 Chloride 109 H Carbon Dioxide 24 Anion Gap 7 BUN 17 Creatinine 1.17 Est GFR ( Amer) > 60 Glucose 230 H Calcium 9.1 Impressions: Foot X-Ray 06/06/20 10:32 IMPRESSION: No conventional radiographic evidence of osteomyelitis. Assessment and Plan - Diagnosis (1) Diabetic infection of left foot Is this a current diagnosis for this admission?: Yes Plan: X-ray does not reveal signs of osteomyelitis Check wound culture Check blood cultures Start vancomycin per pharmacy protocol (2) CAD (coronary artery disease) Is this a current diagnosis for this admission?: Yes Plan: Patient denies any chest pain or shortness of breath Continue ASA 81 mg p.o. daily Continue clopidogrel 75 mg p.o. daily (3) Hypertension Qualifiers: Hypertension type: essential hypertension Qualified Code(s): I10 - Essential (primary) hypertension Is this a current diagnosis for this admission?: Yes Plan: BP above goal but patient did not expect to be hospitalized and this may be contributing to his elevated BP Continue metoprolol tartrate 25 mg p.o. daily Continue lisinopril 40 mg p.o. daily If BP remains above goal will increase metoprolol to twice daily dosing (4) Dyslipidemia Is this a current diagnosis for this admission?: Yes Plan: Continue atorvastatin 40 mg p.o. daily at at bedtime (5) Type 2 diabetes mellitus Is this a current diagnosis for this admission?: Yes Plan: Check hemoglobin A1c in a.m. Continue metformin 500 mg p.o. twice daily Add FS BS with SSI correction scale (6) Anemia Is this a current diagnosis for this admission?: Yes Plan: Check iron studies in a.m. Monitor - Time Time Spent with patient: 35 or more minutes Medications reviewed and adjusted accordingly: Yes Anticipated discharge: Home Within: Other
[2020-06-06] MEDS: METFORMIN HCL 500 MG TABLET PO SCH (17:37)
[2020-06-06] MEDS: ACETAMINOPHEN 325 MG TABLET PO PRN (17:42)
[2020-06-06] MEDS ORDERED: DEXTROSE 50%-WATER 25 GM/50 ML DISP.SYRIN IV PRN ×2 (18:48)
[2020-06-06] MEDS ORDERED: GLUCAGON,HUMAN RECOMB 1 MG INJ IM PRN (18:48)
[2020-06-06] MEDS ORDERED: DEXTROSE 40% GEL 15 GM TUBE PO PRN ×2 (18:48)
[2020-06-06] MEDS: INSULIN LISPRO 100 UNIT/ML 3 ML VIAL SUBCUT SCH (21:46)
[2020-06-06] MEDS: ATORVASTATIN CALCIUM 40 MG TABLET PO SCH (21:46)
[2020-06-06] MEDS: VANCOMYCIN HCL 1,000 MG in DEXTROSE 5%-WATER 250 ML IV SCH (21:58)
[2020-06-06] MEDS ORDERED: METOPROLOL TARTRATE 25 MG TABLET PO ONE (23:45)
[2020-06-06] MEDS ORDERED: LISINOPRIL 10 MG TABLET PO ONE (23:45)
[2020-06-07] MEDS: HYDRALAZINE HCL INJ/PF 20 MG/1 ML SDV IV PRN (04:13)
[2020-06-07] MEDS: ACETAMINOPHEN 325 MG TABLET PO PRN (04:14)
[2020-06-07 06:38] LABS: ABSOLUTE BASOPHILS # (AUTO) 0.1 10^3/uL (0.0-0.2); ABSOLUTE EOSINOPHILS # (AUTO) 0.4 10^3/uL (0.0-0.6); ABSOLUTE LYMPHOCYTES (AUTO) 1.5 10^3/uL (0.5-4.7); ABSOLUTE MONOCYTES (AUTO) 0.5 10^3/uL (0.1-1.4); ABSOLUTE NEUT (AUTO) 3.8 10^3/uL (1.7-8.2); ABSOLUTE RETICS # 0.051 10^6/uL (0.028-0.122); BASOPHILS % (AUTO) 1.1 % (0-2); EOSINOPHILS % (AUTO) 6.2 % (0-6); HEMATOCRIT 34.5 % (37.9-51.0); HEMOGLOBIN 11.2 g/dL (13.5-17.0); MEAN CORPUSCULAR HEMOGLOBIN 30.2 pg (27.0-33.4); MEAN CORPUSCULAR HGB CONC 32.3 g/dL (32.0-36.0); MEAN CORPUSCULAR VOLUME 94 fl (80-97); PLATELET COUNT 275 10^3/uL (150-450); RED CELL DISTRIBUTION WIDTH 15.1 % (11.5-14.0); RETICULOCYTE COUNT (AUTO) 1.37 % (0.66-2.85); SEGMENTED NEUTROPHILS % (AUTO) 60.7 % (42-78); TOTAL CELLS COUNTED % (AUTO) 100 %; WHITE BLOOD COUNT 6.2 10^3/uL (4.0-10.5)
[2020-06-07 07:01] LABS: ANION GAP 7 (5-19); BLOOD UREA NITROGEN 11 mg/dL (7-20); CALCIUM 9.1 mg/dL (8.4-10.2); CARBON DIOXIDE 25 mmol/L (22-30); CHLORIDE 106 mmol/L (98-107); GLUCOSE 144 mg/dL (75-110); IRON(TIBC) 41.7 ug/dL (49-181); POTASSIUM 3.7 mmol/L (3.6-5.0)
[2020-06-07] MEDS: METFORMIN HCL 500 MG TABLET PO SCH ×2 (08:19→19:01)
[2020-06-07] MEDS: INSULIN LISPRO 100 UNIT/ML 3 ML VIAL SUBCUT SCH ×4 (08:20→22:08)
--- NOTE | 2020-06-07 09:25 | EKG REPORT ---
SEVERITY:- ABNORMAL ECG - SINUS RHYTHM MULTIPLE VENTRICULAR PREMATURE COMPLEXES PROBABLE LEFT ATRIAL ABNORMALITY LVH WITH SECONDARY REPOLARIZATION ABNORMALITY PROBABLE INFERIOR INFARCT, AGE INDETERMINATE : Confirmed by: Endy Alvares 07-Jun-2020 09:24:11
[2020-06-07] MEDS ORDERED: METOPROLOL TARTRATE 25 MG TABLET PO SCH (10:00)
[2020-06-07] MEDS: ENOXAPARIN SODIUM INJ 40 MG/0.4 ML DISP.SYRIN SUBCUT SCH (12:05)
[2020-06-07] MEDS: CLOPIDOGREL BISULFATE 75 MG TABLET PO SCH (12:07)
[2020-06-07] MEDS: ASPIRIN 81 MG TABLET, ENT COATED PO SCH (12:07)
[2020-06-07] MEDS: VANCOMYCIN HCL 1,000 MG in DEXTROSE 5%-WATER 250 ML IV SCH ×2 (12:08→22:44)
[2020-06-07] MEDS: LISINOPRIL 10 MG TABLET PO SCH (12:10)
--- NOTE | 2020-06-07 19:04 | PDOC PROGRESS REPORT ---
Subjective Progress Note for:: 06/07/20 Subjective:: No complaints. Denies pain Reason For Visit: CELLULITIS Physical Exam Vital Signs: Temp Pulse Resp BP Pulse Ox 99.5 F 72 18 155/76 H 100 06/07/20 15:14 06/07/20 15:14 06/07/20 15:14 06/07/20 15:14 06/07/20 15:14 Intake & Output 06/06/20 06/07/20 06/08/20 06:59 06:59 06:59 Intake Total 574 920 Balance 574 920 Weight 85.7 kg General appearance: PRESENT: no acute distress, cooperative, well-developed, we ll-nourished Head exam: PRESENT: atraumatic, normocephalic Eye exam: PRESENT: conjunctiva pink Mouth exam: PRESENT: moist, tongue midline Neck exam: ABSENT: JVD Respiratory exam: PRESENT: clear to auscultation carole, symmetrical, unlabored. ABSENT: accessory muscle use Cardiovascular exam: PRESENT: RRR, +S1, +S2 Pulses: PRESENT: normal carotid pulses, normal radial pulses Vascular exam: PRESENT: normal capillary refill GI/Abdominal exam: PRESENT: normal bowel sounds, soft. ABSENT: distended, tenderness Rectal exam: PRESENT: deferred Extremities exam: ABSENT: calf tenderness Musculoskeletal exam: PRESENT: full ROM Neurological exam: PRESENT: alert, awake, oriented to person, oriented to place, oriented to time, oriented to situation, CN II-XII grossly intact. ABSENT: motor sensory deficit Psychiatric exam: ABSENT: agitated, anxious Skin exam: PRESENT: dry, normal color, warm, other - Left fifth toe wound with purulent drainage and foul odor. Left fourth toe wound with intact skin Results Laboratory Results: 06/07/20 05:43 06/07/20 05:43 06/07/20 06/07/20 05:43 05:43 WBC 6.2 RBC 3.70 L Hgb 11.2 L Hct 34.5 L MCV 94 MCH 30.2 MCHC 32.3 RDW 15.1 H Plt Count 275 Seg Neutrophils % 60.7 Retic Count (auto) 1.37 Sodium 138.4 Potassium 3.7 Chloride 106 Carbon Dioxide 25 Anion Gap 7 BUN 11 Creatinine 1.01 Est GFR ( Amer) > 60 Glucose 144 H Calcium 9.1 Iron 41.7 L TIBC 343 % Saturation 12 Ferritin 29.00 Vitamin B12 458.0 Folate 10.10 Impressions: Foot X-Ray 06/06/20 10:32 IMPRESSION: No conventional radiographic evidence of osteomyelitis. Assessment and Plan - Diagnosis (1) Diabetic infection of left foot Is this a current diagnosis for this admission?: Yes Plan: X-ray does not reveal signs of osteomyelitis Gram stain of wound revealing GNR Blood cultures NG at 24 hours Continue vancomycin per pharmacy protocol Add cefepime 2 g IV every 12 hours (2) CAD (coronary artery disease) Is this a current diagnosis for this admission?: Yes Plan: Patient denies any chest pain or shortness of breath Continue ASA 81 mg p.o. daily Continue clopidogrel 75 mg p.o. daily (3) Hypertension Qualifiers: Hypertension type: essential hypertension Qualified Code(s): I10 - Essential (primary) hypertension Is this a current diagnosis for this admission?: Yes Plan: BP remains above goal Increase metoprolol tartrate to 25 mg p.o. every 12 hours Continue lisinopril 40 mg p.o. daily (4) Dyslipidemia Is this a current diagnosis for this admission?: Yes Plan: Continue atorvastatin 40 mg p.o. daily at at bedtime (5) Type 2 diabetes mellitus Is this a current diagnosis for this admission?: Yes Plan: Hemoglobin A1c 5.8 Continue metformin 500 mg p.o. twice daily Continue FS BS with SSI correction scale (6) Anemia Is this a current diagnosis for this admission?: Yes Plan: Iron studies reviewed Start FeSO4 325 mg p.o. daily Monitor - Time Time Spent with patient: 25-34 minutes Medications reviewed and adjusted accordingly: Yes Anticipated discharge: Home Within: Other
[2020-06-07] MEDS ORDERED: CEFEPIME 2 GM/D5W RTU 2 GM/50 ML RTUPB IV SCH (22:00)
[2020-06-07] MEDS: ATORVASTATIN CALCIUM 40 MG TABLET PO SCH (22:08)
[2020-06-07] MEDS: METOPROLOL TARTRATE 25 MG TABLET PO SCH (22:08)
[2020-06-07] MEDS: CEFEPIME HCL 2 GM in DEXTROSE 5%-WATER 50 ML IV SCH (22:09)
[2020-06-08 05:08] LABS: ABSOLUTE BASOPHILS # (AUTO) 0.1 10^3/uL (0.0-0.2); ABSOLUTE EOSINOPHILS # (AUTO) 0.2 10^3/uL (0.0-0.6); ABSOLUTE LYMPHOCYTES (AUTO) 1.6 10^3/uL (0.5-4.7); ABSOLUTE MONOCYTES (AUTO) 0.5 10^3/uL (0.1-1.4); EOSINOPHILS % (AUTO) 3.9 % (0-6); HEMATOCRIT 33.3 % (37.9-51.0); HEMOGLOBIN 11.1 g/dL (13.5-17.0); LYMPHOCYTES % (AUTO) 24.9 % (13-45); MEAN CORPUSCULAR HGB CONC 33.2 g/dL (32.0-36.0); MEAN CORPUSCULAR VOLUME 93 fl (80-97); MONOCYTES % (AUTO) 8.4 % (3-13); PLATELET COUNT 255 10^3/uL (150-450); RED BLOOD COUNT 3.58 10^6/uL (4.35-5.55); RED CELL DISTRIBUTION WIDTH 15.1 % (11.5-14.0); SEGMENTED NEUTROPHILS % (AUTO) 61.8 % (42-78); TOTAL CELLS COUNTED % (AUTO) 100 %; WHITE BLOOD COUNT 6.5 10^3/uL (4.0-10.5)
[2020-06-08 05:33] LABS: BLOOD UREA NITROGEN 12 mg/dL (7-20); CALCIUM 9.3 mg/dL (8.4-10.2); CARBON DIOXIDE 30 mmol/L (22-30); CHLORIDE 104 mmol/L (98-107); GLUCOSE 128 mg/dL (75-110); POTASSIUM 3.9 mmol/L (3.6-5.0)
[2020-06-08 05:43] LABS: ANION GAP 4 (5-19)
[2020-06-08] MEDS: INSULIN LISPRO 100 UNIT/ML 3 ML VIAL SUBCUT SCH ×4 (09:04→21:54)
[2020-06-08] MEDS: METFORMIN HCL 500 MG TABLET PO SCH ×2 (09:43→17:58)
[2020-06-08] MEDS: CLOPIDOGREL BISULFATE 75 MG TABLET PO SCH (09:43)
[2020-06-08] MEDS: LISINOPRIL 10 MG TABLET PO SCH (09:43)
[2020-06-08] MEDS: ASPIRIN 81 MG TABLET, ENT COATED PO SCH (09:44)
[2020-06-08] MEDS: ENOXAPARIN SODIUM INJ 40 MG/0.4 ML DISP.SYRIN SUBCUT SCH (09:44)
[2020-06-08] MEDS: VANCOMYCIN HCL 1,000 MG in DEXTROSE 5%-WATER 250 ML IV SCH ×2 (09:45→22:57)
[2020-06-08] MEDS: METOPROLOL TARTRATE 25 MG TABLET PO SCH ×2 (10:00→21:53)
[2020-06-08 10:34] LABS: VANCOMYCIN,TROUGH 11.8 ug/mL (5.0-20.0)
[2020-06-08] MEDS: CEFEPIME HCL 2 GM in DEXTROSE 5%-WATER 50 ML IV SCH ×2 (11:50→21:53)
[2020-06-08] MEDS: ATORVASTATIN CALCIUM 40 MG TABLET PO SCH (21:53)
--- NOTE | 2020-06-08 22:16 | PDOC PROGRESS REPORT ---
Subjective Progress Note for:: 06/08/20 Subjective:: Patient states that he is feeling well today Reason For Visit: CELLULITIS Physical Exam Vital Signs: Temp Pulse Resp BP Pulse Ox 98.4 F 71 17 168/74 H 100 06/08/20 20:00 06/08/20 20:00 06/08/20 20:00 06/08/20 20:00 06/08/20 20:00 Intake & Output 06/07/20 06/08/20 06/09/20 06:59 06:59 06:59 Intake Total 574 1670 1280 Balance 574 1670 1280 Weight 85.7 kg 85.7 kg General appearance: PRESENT: no acute distress, cooperative Head exam: PRESENT: atraumatic, normocephalic Eye exam: PRESENT: conjunctiva pink Mouth exam: PRESENT: moist, tongue midline Neck exam: PRESENT: full ROM. ABSENT: JVD Respiratory exam: PRESENT: clear to auscultation carole, symmetrical, unlabored. ABSENT: accessory muscle use Cardiovascular exam: PRESENT: RRR, +S1, +S2 Pulses: PRESENT: normal carotid pulses, normal radial pulses Vascular exam: PRESENT: normal capillary refill GI/Abdominal exam: PRESENT: normal bowel sounds, soft. ABSENT: distended, tenderness Rectal exam: PRESENT: deferred Extremities exam: PRESENT: full ROM. ABSENT: calf tenderness, clubbing Neurological exam: PRESENT: alert, awake, oriented to person, oriented to place, oriented to time, oriented to situation, CN II-XII grossly intact Psychiatric exam: ABSENT: agitated, anxious Skin exam: PRESENT: dry, normal color, warm Results Laboratory Results: 06/08/20 04:18 06/08/20 09:54 06/08/20 06/08/20 06/08/20 04:18 04:18 09:54 WBC 6.5 RBC 3.58 L Hgb 11.1 L Hct 33.3 L MCV 93 MCH 31.0 MCHC 33.2 RDW 15.1 H Plt Count 255 Seg Neutrophils % 61.8 Sodium 138.1 Potassium 3.9 Chloride 104 Carbon Dioxide 30 Anion Gap 4 L BUN 12 Creatinine 1.10 1.00 Est GFR ( Amer) > 60 > 60 Glucose 128 H Calcium 9.3 06/06/20 13:04 Foot - Deep Wound Gram Stain - Final Impressions: Foot X-Ray 06/06/20 10:32 IMPRESSION: No conventional radiographic evidence of osteomyelitis. Assessment and Plan - Diagnosis (1) Diabetic infection of left foot Is this a current diagnosis for this admission?: Yes Plan: X-ray does not reveal signs of osteomyelitis Culture with Proteus Mirabilis, Gram stain with 4+ GNR, 4+ GPC, few GPR - sensitivities noted Blood cultures NG at 48 hours Continue vancomycin per pharmacy protocol Stop cefepime Start ceftriaxone IV every 24 hours (2) CAD (coronary artery disease) Is this a current diagnosis for this admission?: Yes Plan: Patient denies any chest pain or shortness of breath Continue ASA 81 mg p.o. daily Continue clopidogrel 75 mg p.o. daily (3) Hypertension Qualifiers: Hypertension type: essential hypertension Qualified Code(s): I10 - Essential (primary) hypertension Is this a current diagnosis for this admission?: Yes Plan: BP remains above goal Increase metoprolol tartrate to 50 mg p.o. every 12 hours Continue lisinopril 40 mg p.o. daily (4) Dyslipidemia Is this a current diagnosis for this admission?: Yes Plan: Continue atorvastatin 40 mg p.o. daily at at bedtime (5) Type 2 diabetes mellitus Is this a current diagnosis for this admission?: Yes Plan: Hemoglobin A1c 5.8 Continue metformin 500 mg p.o. twice daily Continue FS BS with SSI correction scale (6) Anemia Is this a current diagnosis for this admission?: Yes Plan: Iron studies reviewed Continue FeSO4 325 mg p.o. daily Monitor - Time Time Spent with patient: 25-34 minutes Medications reviewed and adjusted accordingly: Yes Anticipated Discharge Disposition: Home, Self Care Anticipated Discharge: Other
[2020-06-08] MEDS: METOPROLOL TARTRATE 50 MG TABLET PO SCH (23:51)
[2020-06-09 07:12] LABS: ANION GAP 5 (5-19); BLOOD UREA NITROGEN 13 mg/dL (7-20); CALCIUM 9.8 mg/dL (8.4-10.2); CARBON DIOXIDE 30 mmol/L (22-30); CHLORIDE 103 mmol/L (98-107); GLUCOSE 126 mg/dL (75-110); POTASSIUM 4.1 mmol/L (3.6-5.0)
[2020-06-09] MEDS: INSULIN LISPRO 100 UNIT/ML 3 ML VIAL SUBCUT SCH ×4 (07:22→21:32)
[2020-06-09] MEDS: METFORMIN HCL 500 MG TABLET PO SCH ×2 (07:31→18:11)
[2020-06-09] MEDS: CEFTRIAXONE 2 GM/D5W RTU 2 GM/50 ML RTUPB IV SCH (11:16)
[2020-06-09] MEDS: ASPIRIN 81 MG TABLET, ENT COATED PO SCH (11:17)
[2020-06-09] MEDS: METOPROLOL TARTRATE 50 MG TABLET PO SCH ×2 (11:17→21:34)
[2020-06-09] MEDS: CLOPIDOGREL BISULFATE 75 MG TABLET PO SCH (11:18)
[2020-06-09] MEDS: ENOXAPARIN SODIUM INJ 40 MG/0.4 ML DISP.SYRIN SUBCUT SCH (11:18)
[2020-06-09] MEDS: LISINOPRIL 10 MG TABLET PO SCH (11:18)
[2020-06-09] MEDS: METOPROLOL TARTRATE 25 MG TABLET PO SCH (11:53)
[2020-06-09] MEDS: VANCOMYCIN HCL 1,000 MG in DEXTROSE 5%-WATER 250 ML IV SCH ×2 (12:34→21:35)
--- NOTE | 2020-06-09 14:28 | PDOC PROGRESS REPORT ---
Subjective Progress Note for:: 06/09/20 Subjective:: Patient states that he feels well Reason For Visit: CELLULITIS Physical Exam Vital Signs: Temp Pulse Resp BP Pulse Ox 98.6 F 68 18 175/71 H 100 06/09/20 04:20 06/09/20 04:20 06/09/20 04:20 06/09/20 04:20 06/09/20 04:20 Intake & Output 06/08/20 06/09/20 06/10/20 06:59 06:59 06:59 Intake Total 1670 1820 Balance 1670 1820 Weight 85.7 kg 85.8 kg General appearance: PRESENT: no acute distress, cooperative, well-developed, well-nourished Head exam: PRESENT: atraumatic, normocephalic Eye exam: PRESENT: conjunctiva pink Mouth exam: PRESENT: moist, tongue midline Neck exam: ABSENT: JVD Respiratory exam: PRESENT: clear to auscultation carole, symmetrical, unlabored. ABSENT: accessory muscle use Cardiovascular exam: PRESENT: RRR, +S1, +S2 Pulses: PRESENT: normal radial pulses Vascular exam: PRESENT: normal capillary refill GI/Abdominal exam: PRESENT: normal bowel sounds, soft. ABSENT: distended Rectal exam: PRESENT: deferred Extremities exam: ABSENT: calf tenderness, clubbing, pedal edema Musculoskeletal exam: PRESENT: ambulatory Neurological exam: PRESENT: alert, awake, oriented to person, oriented to place, oriented to time, oriented to situation, CN II-XII grossly intact Psychiatric exam: PRESENT: appropriate affect, normal mood. ABSENT: agitated, anxious Skin exam: PRESENT: dry, normal color, warm Results Laboratory Results: 06/08/20 04:18 06/09/20 06:21 06/09/20 06:21 Sodium 137.9 Potassium 4.1 Chloride 103 Carbon Dioxide 30 Anion Gap 5 BUN 13 Creatinine 1.13 Est GFR ( Amer) > 60 Glucose 126 H Calcium 9.8 06/06/20 13:04 Foot - Deep Wound Gram Stain - Final Impressions: Foot X-Ray 06/06/20 10:32 IMPRESSION: No conventional radiographic evidence of osteomyelitis. Assessment and Plan - Diagnosis (1) Diabetic infection of left foot Is this a current diagnosis for this admission?: Yes Plan: X-ray does not reveal signs of osteomyelitis Culture with Proteus Mirabilis, Gram stain with 4+ GNR, 4+ GPC, few GPR - sensitivities noted Blood cultures NG at 72 hours Continue vancomycin per pharmacy protocol Continue ceftriaxone IV every 24 hours (2) CAD (coronary artery disease) Is this a current diagnosis for this admission?: Yes (3) Hypertension Qualifiers: Hypertension type: essential hypertension Qualified Code(s): I10 - Essential (primary) hypertension Is this a current diagnosis for this admission?: Yes Plan: BP remains above goal Increase metoprolol tartrate to 50 mg p.o. every 12 hours, patient received first 50 mg dose today Continue lisinopril 40 mg p.o. daily (4) Dyslipidemia Is this a current diagnosis for this admission?: Yes Plan: Continue atorvastatin 40 mg p.o. daily at at bedtime (5) Type 2 diabetes mellitus Is this a current diagnosis for this admission?: Yes Plan: Hemoglobin A1c 5.8 Continue metformin 500 mg p.o. twice daily Continue FS BS with SSI correction scale (6) Anemia Is this a current diagnosis for this admission?: Yes Plan: Iron studies reviewed Continue FeSO4 325 mg p.o. daily Monitor - Time Time Spent with patient: 25-34 minutes Medications reviewed and adjusted accordingly: Yes Anticipated Discharge Disposition: Home, Self Care Anticipated Discharge: within 24 hours
[2020-06-09] MEDS: ATORVASTATIN CALCIUM 40 MG TABLET PO SCH (21:35)
[2020-06-10 06:46] LABS: ANION GAP 8 (5-19); BLOOD UREA NITROGEN 15 mg/dL (7-20); CALCIUM 9.5 mg/dL (8.4-10.2); CARBON DIOXIDE 28 mmol/L (22-30); CHLORIDE 102 mmol/L (98-107); GLUCOSE 142 mg/dL (75-110); POTASSIUM 4.1 mmol/L (3.6-5.0)
[2020-06-10] MEDS: INSULIN LISPRO 100 UNIT/ML 3 ML VIAL SUBCUT SCH ×4 (08:08→22:00)
[2020-06-10] MEDS: METFORMIN HCL 500 MG TABLET PO SCH ×2 (08:35→17:55)
[2020-06-10] MEDS: LISINOPRIL 10 MG TABLET PO SCH (10:43)
[2020-06-10] MEDS: CEFTRIAXONE 2 GM/D5W RTU 2 GM/50 ML RTUPB IV SCH (10:43)
[2020-06-10] MEDS: ENOXAPARIN SODIUM INJ 40 MG/0.4 ML DISP.SYRIN SUBCUT SCH (10:43)
[2020-06-10] MEDS: CLOPIDOGREL BISULFATE 75 MG TABLET PO SCH (10:43)
[2020-06-10] MEDS: METOPROLOL TARTRATE 50 MG TABLET PO SCH ×2 (10:43→21:43)
[2020-06-10] MEDS: ASPIRIN 81 MG TABLET, ENT COATED PO SCH (10:43)
[2020-06-10] MEDS: VANCOMYCIN HCL 1,000 MG in DEXTROSE 5%-WATER 250 ML IV SCH ×2 (11:45→21:44)
--- NOTE | 2020-06-10 17:17 | RADIOLOGY REPORT (SQ) ---
EXAM DESCRIPTION: MRI LT LOWER EXTREMITY COMBO IMAGES COMPLETED DATE/TIME: 06/10/2020 4:32 pm REASON FOR STUDY: Rule out osteomyeltis COMPARISON: Radiograph 06/06/2020 TECHNIQUE: Multiplanar T1 and T2 weighted sequences of the left foot pre and post contrast. CONTRAST TYPE AND DOSE: 15 mL ProHance RENAL FUNCTION: GFR > 60. LIMITATIONS: None. FINDINGS: MARROW SIGNAL: Abnormal marrow signal in the 5th proximal phalanx with decreased T1, incre ased T2 signal, and significant enhancement following contrast, this is most suggestive of osteomyel itis.Remaining marrow is within normal limits. JOINT EFFUSION: No significant effusions. PLANTAR FASCIA: Normal as visualized. TARSOMETATARSAL AND TOE ARTICULATIONS: Anatomic. Mild degenerative changes first metatarsal phalange al joint. INTERMETATARSAL SPACES AND PLANTAR PLATES: Intact. No soft tissue mass to suggest a neuroma. SOFT TISSUES: Diffuse dorsal -lateral soft tissue swelling. IMPRESSION: Abnormal marrow signal in the 5th proximal phalanx with decreased T1, increased T2 signa l, and significant enhancement following contrast, this is most suggestive of osteomyelitis. TECHNICAL DOCUMENTATION: JOB ID: [id number] 2010 [employer]- All Rights Reserved Reading location - IP/workstation name: [email or web address]
--- NOTE | 2020-06-10 18:11 | PDOC PROGRESS REPORT ---
Subjective Progress Note for:: 06/10/20 Subjective:: Patient denies fever, chills, and pain. He states overall he feels well and is eager for discharge. Reason For Visit: CELLULITIS Physical Exam Vital Signs: Temp Pulse Resp BP Pulse Ox 97.9 F 67 13 149/72 H 100 06/10/20 10:37 06/10/20 10:37 06/10/20 10:37 06/10/20 10:37 06/10/20 10:37 Intake & Output 06/09/20 06/10/20 06/11/20 06:59 06:59 06:59 Intake Total 1820 1570 900 Balance 1820 1570 900 Weight 85.8 kg 84.6 kg General appearance: PRESENT: no acute distress, cooperative, well-developed, well-nourished Head exam: PRESENT: atraumatic, normocephalic Eye exam: PRESENT: conjunctiva pink Mouth exam: PRESENT: moist, tongue midline Neck exam: ABSENT: JVD Respiratory exam: PRESENT: clear to auscultation carole, symmetrical, unlabored. ABSENT: accessory muscle use Cardiovascular exam: PRESENT: RRR, +S1, +S2 Vascular exam: PRESENT: normal capillary refill GI/Abdominal exam: PRESENT: normal bowel sounds, soft. ABSENT: distended, tenderness Rectal exam: PRESENT: deferred Extremities exam: ABSENT: calf tenderness, pedal edema Neurological exam: PRESENT: alert, awake, oriented to person, oriented to place, oriented to time, oriented to situation, CN II-XII grossly intact. ABSENT: motor sensory deficit Psychiatric exam: PRESENT: appropriate affect, normal mood. ABSENT: agitated, anxious Skin exam: PRESENT: dry, normal color, warm Results Laboratory Results: 06/08/20 04:18 06/10/20 05:42 06/10/20 05:42 Sodium 137.5 Potassium 4.1 Chloride 102 Carbon Dioxide 28 Anion Gap 8 BUN 15 Creatinine 1.04 Est GFR ( Amer) > 60 Glucose 142 H Calcium 9.5 06/06/20 13:04 Foot - Deep Wound Gram Stain - Final 06/06/20 13:04 Foot - Deep Wound Wound Culture - Final Proteus Mirabilis Enterococcus Faecalis(Group D) Skin Shelbie Impressions: Foot X-Ray 06/06/20 10:32 IMPRESSION: No conventional radiographic evidence of osteomyelitis. Lower Extremity MRI 06/10/20 00:00 IMPRESSION: Abnormal marrow signal in the 5th proximal phalanx with decreased T1, increased T2 signal, and significant enhancement following contrast, this is most suggestive of osteomyelitis. Assessment and Plan - Diagnosis (1) Diabetic infection of left foot Is this a current diagnosis for this admission?: Yes Plan: X-ray does not reveal signs of osteomyelitis Wound appears worse today, there is increased drainage which is malodiferous and the wound bed appears to have a bit of necrosis MRI of the foot (reviewed) Culture with Proteus Mirabilis, Gram stain with 4+ GNR, 4+ GPC, few GPR - sensitivities noted Blood cultures NG at 4 days Continue vancomycin per pharmacy protocol Continue ceftriaxone IV every 24 hours (2) Osteomyelitis Is this a current diagnosis for this admission?: Yes Plan: MRI today reveals abnormal marrow signal in the fifth proximal phalanx with decreased T1, increased T2 signal, and significant enhancement following contrast. This is most suggestive of osteomyelitis. Orthopedic surgery consult (3) CAD (coronary artery disease) Is this a current diagnosis for this admission?: Yes Plan: Patient denies any chest pain or shortness of breath Continue ASA 81 mg p.o. daily Continue clopidogrel 75 mg p.o. daily (4) Hypertension Qualifiers: Hypertension type: essential hypertension Qualified Code(s): I10 - Essential (primary) hypertension Is this a current diagnosis for this admission?: Yes Plan: Adequate BP control currently Continue metoprolol tartrate to 50 mg p.o. every 12 hours Continue lisinopril 40 mg p.o. daily (5) Dyslipidemia Is this a current diagnosis for this admission?: Yes Plan: Continue atorvastatin 40 mg p.o. daily at at bedtime (6) Type 2 diabetes mellitus Is this a current diagnosis for this admission?: Yes Plan: Hemoglobin A1c 5.8 Continue metformin 500 mg p.o. twice daily Patient's blood glucose consistently above goal particularly considering active infection Start Lantus (basal) insulin 2 units subcutaneous nightly Continue FS BS with SSI correction scale (7) Anemia Is this a current diagnosis for this admission?: Yes Plan: Iron studies reviewed Continue FeSO4 325 mg p.o. daily Monitor - Time Time Spent with patient: 25-34 minutes Medications reviewed and adjusted accordingly: Yes Anticipated Discharge Disposition: Home, Self Care Anticipated Discharge: Other
[2020-06-10] MEDS: ACETAMINOPHEN 325 MG TABLET PO PRN (20:02)
[2020-06-10] MEDS ORDERED: INSULIN GLARGINE,HUM.REC.ANLOG 1,000 UNIT/10 ML VIAL (PYX) SUBCUT PRN (20:33)
[2020-06-10] MEDS ORDERED: INSULIN GLARGINE,HUM.REC.ANLOG 1,000 UNIT/10 ML VIAL (PYX) SUBCUT ONE (21:40)
[2020-06-10] MEDS: ATORVASTATIN CALCIUM 40 MG TABLET PO SCH (21:43)
[2020-06-10] MEDS: INSULIN GLARGINE,HUM.REC.ANLOG 1,000 UNIT/10 ML VIAL SUBCUT SCH (21:44)
[2020-06-11 05:20] LABS: ANION GAP 6 (5-19); BLOOD UREA NITROGEN 18 mg/dL (7-20); CALCIUM 9.1 mg/dL (8.4-10.2); CARBON DIOXIDE 30 mmol/L (22-30); CHLORIDE 102 mmol/L (98-107); GLUCOSE 133 mg/dL (75-110); POTASSIUM 3.9 mmol/L (3.6-5.0)
--- NOTE | 2020-06-11 07:46 | PDOC CONSULTATION ---
Consultation Consult Date: 06/11/20 Provider Consulted: TAE COLON JR History of Present Illness Admission Date/PCP: 06/06/20 12:22 AMBAR WALLACE MD History of Present Illness: ELISA WHITFIELD is a 60 year old male presented to the hospital for left fourth and fifth toe wounds that have had difficulty healing with associated increasing pain over the last 2 weeks. He denies of history of fever and chills. He is diabetic. Pain is described as aching nature, worse with weightbearing, improved with rest, 4 out of 10. He has diminished sensation to his feet bilaterally given diabetic peripheral neuropathy. He has been in house on antibiotics for the last few days without improvement and with subsequent jose inage from the left fifth toe. Past Medical History Cardiac Medical History: Reports: Coronary Artery Disease - History of 2 stents and CABG x 3 in 2018, Hyperlipidema, Hypertension Pulmonary Medical History: Denies: Asthma, Bronchitis, Chronic Obstructive Pulmonary Disease (COPD), Intubation, Pneumonia, Respiratory Failure, Sleep Apnea, Tuberculosis EENT Medical History: Denies: Cataracts Neurological Medical History: Denies: Hemorrhagic CVA, Ischemic CVA, Migraine, Seizures Endocrine Medical History: Reports: Diabetes Mellitus Type 2 Renal/ Medical History: Denies: Chronic Kidney Disease Malignancy Medical History: Reports: None GI Medical History: Reports: None Musculoskeltal Medical History: Reports: None Skin Medical History: Reports: None Psychiatric Medical History: Denies: Alcohol Dependency, Depression, Substance Abuse Traumatic Medical History: Reports: None Hematology: Reports: None Infectious Medical History: Reports: None Past Surgical History Past Surgical History: Reports: Cardiac Catheterization - w/ stents, Coronary Artery Bypass Graft Social History Lives with: Spouse/Significant other Smoking Status: Current Every Day Smoker Cigarettes Packs Per Day: 1 Electronic Cigarette use?: No Cigars Per Day: 0 Pipes Per Day: 0 Number of Years Smokin Last Time Smoked: 06/05/2020 Frequency of Alcohol Use: Occasional Hx Recreational Drug Use: No Drugs: None Hx Prescription Drug Abuse: No Family History Family History: CAD, DM Parental Family History Reviewed: No Children Family History Reviewed: NA Sibling(s) Family History Reviewed.: NA Medication/Allergy Home Medications: Lisinopril 20 mg PO DAILY 08/27/16 Aspirin [Ecotrin 81 mg EC Tablet] 81 mg PO DAILY tabec 10/13/16 Clopidogrel Bisulfate [Plavix 75 mg Tablet] 75 mg PO DAILY tablet 08/28/16 Metformin HCl [Glucophage 500 mg Tablet] 1,000 mg PO BID #60 tablet 03/10/18 Atorvastatin Calcium [Lipitor 40 mg Tablet] 40 mg PO QHS 06/06/20 Metoprolol Tartrate [Lopressor 25 mg Tablet] 25 mg PO Q12 06/06/20 Allergies/Adverse Reactions: No Known Allergies Allergy (Verified 06/06/20 10:29) Review of Systems Review of Systems: Constitutional: ABSENT: anorexia, chills, night sweats Cardiovascular: ABSENT: chest pain Respiratory: ABSENT: dyspnea Gastrointestinal: ABSENT: vomiting Genitourinary: ABSENT: dysuria Integumentary: ABSENT: rash Neurological: ABSENT: confusion, memory loss, numbness Psychiatric: ABSENT: hallucinations Hematologic/Lymphatic: ABSENT: easy bleeding Physical Exam Vital Signs: Temp Pulse Resp BP Pulse Ox 98.1 F 77 17 124/58 L 97 06/11/20 00:39 06/11/20 00:39 06/11/20 00:39 06/11/20 00:39 06/11/20 00:39 Intake & Output 06/10/20 06/11/20 06/12/20 06:59 06:59 06:59 Intake Total 1570 1500 Balance 1570 1500 Weight 84.6 kg 85.4 kg Physical Exam: General appearance: PRESENT: no acute distress, cooperative, well-nourished Head exam: PRESENT: atraumatic, normocephalic Eye exam: PRESENT: EOMI Ear exam: PRESENT: normal external ear exam Mouth exam: PRESENT: neck supple Neck exam: ABSENT: tracheal deviation Respiratory exam: PRESENT: symmetrical, unlabored. ABSENT: accessory muscle use, wheezes Pulses: PRESENT: normal radial pulses, normal dorsalis pedis pulse Vascular exam: PRESENT: normal capillary refill GI/Abdominal exam: ABSENT: distended, firm Extremities exam: PRESENT: full ROM of bilateral shoulders, elbows wrists, knees, hips and ankles without pain Musculoskeletal exam: PRESENT: full ROM, normal inspection of all 4 extremities aside from that noted below. Neurological exam: PRESENT: alert, awake, oriented to person, oriented to place, oriented to time Psychiatric exam: PRESENT: appropriate affect. ABSENT: agitated Focused psych exam: ABSENT: catatonic Skin exam: PRESENT: intact. ABSENT: dry All as above aside from that noted in the HPI and the following: Left lower extremity -Pulses 2+ distally -Compartments soft -Sensation grossly intact to L3-4-5 S1, overall diminished in the distal foot diffusely. Distal sensation present to deep palpation. -Motor grossly intact to EHL TA gastroc and quad -The left fifth toe has excoriation and what appears to be full-thickness wounds that may communicate with bone on both the medial and lateral portion of the middle phalanx with purulent drainage Results Laboratory Results: 06/08/20 04:18 06/11/20 04:21 06/11/20 04:21 Sodium 137.6 Potassium 3.9 Chloride 102 Carbon Dioxide 30 Anion Gap 6 BUN 18 Creatinine 1.27 H Est GFR ( Amer) > 60 Glucose 133 H Calcium 9.1 06/06/20 13:04 Foot - Deep Wound Gram Stain - Final 06/06/20 13:04 Foot - Deep Wound Wound Culture - Final Proteus Mirabilis Enterococcus Faecalis(Group D) Skin Shelbie Impressions: Foot X-Ray 06/06/20 10:32 IMPRESSION: No conventional radiographic evidence of osteomyelitis. Lower Extremity MRI 06/10/20 00:00 IMPRESSION: Abnormal marrow signal in the 5th proximal phalanx with decreased T1, increased T2 signal, and significant enhancement following contrast, this is most suggestive of osteomyelitis. Assessment & Plan - Diagnosis (1) Osteomyelitis Is this a current diagnosis for this admission?: Yes Plan: I agree that the patient likely has osteomyelitis of the left fifth digit that may require amputation. I will discussed the case with Dr. Sykes, podiatry, and try to set up further care and potential surgical definitive treatment.
[2020-06-11] MEDS: INSULIN LISPRO 100 UNIT/ML 3 ML VIAL SUBCUT SCH ×4 (08:10→21:40)
[2020-06-11] MEDS: CLOPIDOGREL BISULFATE 75 MG TABLET PO SCH (11:45)
[2020-06-11] MEDS: LISINOPRIL 10 MG TABLET PO SCH (11:45)
[2020-06-11] MEDS: CEFTRIAXONE 2 GM/D5W RTU 2 GM/50 ML RTUPB IV SCH (11:45)
[2020-06-11] MEDS: METOPROLOL TARTRATE 50 MG TABLET PO SCH ×2 (11:47→21:40)
[2020-06-11] MEDS: ASPIRIN 81 MG TABLET, ENT COATED PO SCH (11:47)
[2020-06-11] MEDS: METFORMIN HCL 500 MG TABLET PO SCH ×2 (11:47→16:53)
[2020-06-11] MEDS: ENOXAPARIN SODIUM INJ 40 MG/0.4 ML DISP.SYRIN SUBCUT SCH (11:48)
[2020-06-11] MEDS: VANCOMYCIN HCL 1,000 MG in DEXTROSE 5%-WATER 250 ML IV SCH ×2 (12:41→21:39)
[2020-06-11] MEDS ORDERED: LIDOCAINE 2% INJ (20 MG/ML) 20 ML MDV INJ PRN (15:13)
[2020-06-11] MEDS ORDERED: NORMAL SALINE 1000 ML 1,000 ML IV PRN (19:15)
--- NOTE | 2020-06-11 19:19 | PDOC PROGRESS REPORT ---
Subjective Progress Note for:: 06/11/20 Subjective:: Patient lying in bed with no specific complaints Reason For Visit: CELLULITIS Physical Exam Vital Signs: Temp Pulse Resp BP Pulse Ox 97.6 F 56 L 16 156/61 H 100 06/11/20 15:58 06/11/20 15:58 06/11/20 15:58 06/11/20 15:58 06/11/20 15:58 Intake & Output 06/10/20 06/11/20 06/12/20 06:59 06:59 06:59 Intake Total 1570 1750 700 Balance 1570 1750 700 Weight 84.6 kg 85.4 kg General appearance: PRESENT: no acute distress, cooperative, well-developed, well-nourished Head exam: PRESENT: atraumatic, normocephalic Eye exam: PRESENT: conjunctiva pink Mouth exam: PRESENT: moist, tongue midline Neck exam: ABSENT: JVD Respiratory exam: PRESENT: clear to auscultation carole, symmetrical, unlabored Cardiovascular exam: PRESENT: RRR, +S1, +S2 Vascular exam: PRESENT: normal capillary refill GI/Abdominal exam: PRESENT: normal bowel sounds, soft. ABSENT: distended, tenderness Rectal exam: PRESENT: deferred Extremities exam: ABSENT: calf tenderness Musculoskeletal exam: PRESENT: ambulatory Neurological exam: PRESENT: alert, awake, oriented to person, oriented to place, oriented to time, oriented to situation, CN II-XII grossly intact Psychiatric exam: PRESENT: depressed - Slightly depressed affect. ABSENT: agitated, anxious Skin exam: PRESENT: dry, normal color, warm Results Laboratory Results: 06/08/20 04:18 06/11/20 04:21 06/11/20 04:21 Sodium 137.6 Potassium 3.9 Chloride 102 Carbon Dioxide 30 Anion Gap 6 BUN 18 Creatinine 1.27 H Est GFR ( Amer) > 60 Glucose 133 H Calcium 9.1 06/06/20 11:56 Blood Blood Culture - Final NO GROWTH IN 5 DAYS 06/06/20 10:30 Blood Blood Culture - Final NO GROWTH IN 5 DAYS Impressions: Foot X-Ray 06/06/20 10:32 IMPRESSION: No conventional radiographic evidence of osteomyelitis. Lower Extremity MRI 06/10/20 00:00 IMPRESSION: Abnormal marrow signal in the 5th proximal phalanx with decreased T1, increased T2 signal, and significant enhancement following contrast, this is most suggestive of osteomyelitis. Assessment and Plan - Diagnosis (1) Diabetic infection of left foot Is this a current diagnosis for this admission?: Yes Plan: X-ray does not reveal signs of osteomyelitis MRI of the foot (reviewed) Culture with Proteus Mirabilis, Gram stain with 4+ GNR, 4+ GPC, few GPR - sensitivities noted Blood cultures NG at 5 days Continue vancomycin per pharmacy protocol Continue ceftriaxone IV every 24 hours (2) Osteomyelitis Is this a current diagnosis for this admission?: Yes Plan: MRI 06/10/20 reveals abnormal marrow signal in the fifth proximal phalanx with decreased T1, increased T2 signal, and significant enhancement following contrast. This is most suggestive of osteomyelitis. Orthopedic surgery consult Orthopedic surgery input appreciated, per Dr. Hughes he does not typically do toe amputations Consult general surgery (Dr. Ma) to evaluate for possible amputation (3) CAD (coronary artery disease) Is this a current diagnosis for this admission?: Yes Plan: Patient denies any chest pain or shortness of breath Continue ASA 81 mg p.o. daily Continue clopidogrel 75 mg p.o. daily (4) Hypertension Qualifiers: Hypertension type: essential hypertension Qualified Code(s): I10 - Essential (primary) hypertension Is this a current diagnosis for this admission?: Yes Plan: Adequate BP control currently Continue metoprolol tartrate to 50 mg p.o. every 12 hours Continue lisinopril 40 mg p.o. daily (5) Dyslipidemia Is this a current diagnosis for this admission?: Yes Plan: Continue atorvastatin 40 mg p.o. daily at at bedtime (6) Type 2 diabetes mellitus Is this a current diagnosis for this admission?: Yes Plan: Hemoglobin A1c 5.8 Increase today in serum creatinine, stop metformin Patient's blood glucose consistently above goal particularly considering active infection Increase Lantus (basal) insulin 4 units subcutaneous nightly Continue FS BS with SSI correction scale (7) Anemia Is this a current diagnosis for this admission?: Yes Plan: Iron studies reviewed Continue FeSO4 325 mg p.o. daily Monitor (8) EMERY (acute kidney injury) Is this a current diagnosis for this admission?: Yes Plan: Slight bump in serum creatinine today Stop metformin Start NS at 100 cc/h for 1 L Recheck BMP in a.m. - Time Time Spent with patient: 25-34 minutes Medications reviewed and adjusted accordingly: Yes Anticipated Discharge Disposition: Home, Self Care Anticipated Discharge: Other
--- NOTE | 2020-06-11 19:59 | Operative Report ---
Operative Report DATE OF SURGERY: 06/11/20 PREOPERATIVE DIAGNOSIS: 1. Left fifth toe osteomyelitis. 2. Diabetes mellitu s. 3. Smoker POSTOPERATIVE DIAGNOSIS: Same OPERATION: Left fifth toe and metatarsal head amputation, packed open SURGEON: AURA SON ANESTHESIA: Local TISSUE REMOVED OR ALTERED: Left fifth toe COMPLICATIONS: None ESTIMATED BLOOD LOSS: Minimal INTRAOPERATIVE FINDINGS: See below PROCEDURE: The patient was examined in room 430. Left foot was edematous. The left fifth toe had ulceration, with limited drainage. MRI scan revealed findings consistent with osteomyelitis. He has palpable femoral and popliteal pulses. Unable to palpate pulses in foot possibly due to edema. The patient was offered a left fifth toe amputation, with plans for delayed primary closure due to soft tissue infection. Left foot was prepped with Betadine. Surgical timeout conducted. The base of the left fifth toe was anesthetized 1% plain lidocaine. The left toe was amputated with #10 blade and scissors. The proximal phalanx, as well as the head of the left fifth metatarsal, were debrided with bone rongeurs. Bleeding was minimal. Wound irrigated with peroxide, Betadine. The recess of the wound was packed with a small piece of Betadine moistened gauze. 4 interrupted 3-0 Ethilon vertical mattress sutures were placed in the wound, and left untied. Wound dressed with Xeroform, antibiotic cream, 4 x 4's between the toes, Kerlix and 4 inch César wrap. Patient tolerated procedure well Plan: 1. We will reinspect wound in 24 to 48 hours, consider closure at bedside. 2. Keep leg elevated at all times; wear surgical boot for pivoting but no weightbearing until wound closed 3. Healing may be compromised due to impaired arterial circulation and diabetes.
[2020-06-11] MEDS: INSULIN GLARGINE,HUM.REC.ANLOG 1,000 UNIT/10 ML VIAL SUBCUT SCH (21:40)
[2020-06-11] MEDS: ATORVASTATIN CALCIUM 40 MG TABLET PO SCH (21:40)
[2020-06-12] MEDS: ACETAMINOPHEN 325 MG TABLET PO PRN (00:16)
[2020-06-12] MEDS ORDERED: MORPHINE SULFATE 10 MG/ML INJ IV PRN ×2 (03:32→10:29)
[2020-06-12 07:46] LABS: ANION GAP 7 (5-19); BLOOD UREA NITROGEN 20 mg/dL (7-20); CALCIUM 9.1 mg/dL (8.4-10.2); CARBON DIOXIDE 28 mmol/L (22-30); CHLORIDE 104 mmol/L (98-107); GLUCOSE 141 mg/dL (75-110); POTASSIUM 4.1 mmol/L (3.6-5.0)
[2020-06-12] MEDS: INSULIN LISPRO 100 UNIT/ML 3 ML VIAL SUBCUT SCH ×4 (08:00→22:01)
--- NOTE | 2020-06-12 09:37 | PDOC PROGRESS REPORT ---
Subjective Progress Note for:: 06/12/20 Subjective:: feels ok, wants to go home Reason For Visit: CELLULITIS Physical Exam Vital Signs: Temp Pulse Resp BP Pulse Ox 98.0 F 64 17 135/67 H 100 06/11/20 19:48 06/11/20 19:48 06/11/20 19:48 06/11/20 19:48 06/11/20 19:48 Intake & Output 06/11/20 06/12/20 06/13/20 06:59 06:59 06:59 Intake Total 1750 1250 Balance 1750 1250 Weight 85.4 kg 85.4 kg General appearance: PRESENT: no acute distress Head exam: PRESENT: normocephalic Eye exam: PRESENT: EOMI Ear exam: PRESENT: normal external ear exam Mouth exam: PRESENT: moist Neck exam: PRESENT: full ROM Respiratory exam: PRESENT: clear to auscultation carole Cardiovascular exam: PRESENT: RRR Pulses: PRESENT: normal radial pulses, normal femoral pulses, normal dorsalis pedis pul Vascular exam: PRESENT: normal capillary refill GI/Abdominal exam: PRESENT: soft Rectal exam: PRESENT: deferred Extremities exam: PRESENT: full ROM, other - left foot with dressing in place Musculoskeletal exam: PRESENT: full ROM Neurological exam: PRESENT: alert, awake, oriented to person, oriented to place Psychiatric exam: PRESENT: appropriate affect Skin exam: PRESENT: dry Results Laboratory Results: 06/08/20 04:18 06/12/20 06:42 06/12/20 06:42 Sodium 138.8 Potassium 4.1 Chloride 104 Carbon Dioxide 28 Anion Gap 7 BUN 20 Creatinine 1.12 Est GFR ( Amer) > 60 Glucose 141 H Calcium 9.1 06/11/20 19:30 Toe - Amputation Site Gram Stain - Final 06/06/20 11:56 Blood Blood Culture - Final NO GROWTH IN 5 DAYS 06/06/20 10:30 Blood Blood Culture - Final NO GROWTH IN 5 DAYS Impressions: Foot X-Ray 06/06/20 10:32 IMPRESSION: No conventional radiographic evidence of osteomyelitis. Lower Extremity MRI 06/10/20 00:00 IMPRESSION: Abnormal marrow signal in the 5th proximal phalanx with decreased T1, increased T2 signal, and significant enhancement following contrast, this is most suggestive of osteomyelitis. Assessment & Plan - Plan Summary Plan Summary: s/p left 5th toe amputation doing well\ ]dresssing intact will dc dressing in am cont iv abx.
[2020-06-12] MEDS ORDERED: OXYCODONE-ACETAMINOPHEN 5-325 MG TABLET PO PRN (10:29)
[2020-06-12] MEDS: CLOPIDOGREL BISULFATE 75 MG TABLET PO SCH (11:08)
[2020-06-12] MEDS: ENOXAPARIN SODIUM INJ 40 MG/0.4 ML DISP.SYRIN SUBCUT SCH (11:08)
[2020-06-12] MEDS: LISINOPRIL 10 MG TABLET PO SCH (11:09)
[2020-06-12] MEDS: ASPIRIN 81 MG TABLET, ENT COATED PO SCH (11:09)
[2020-06-12] MEDS: METOPROLOL TARTRATE 50 MG TABLET PO SCH ×2 (11:18→22:07)
[2020-06-12] MEDS: CEFTRIAXONE 2 GM/D5W RTU 2 GM/50 ML RTUPB IV SCH (11:18)
[2020-06-12] MEDS: VANCOMYCIN HCL 1,000 MG in DEXTROSE 5%-WATER 250 ML IV SCH ×2 (11:22→22:06)
[2020-06-12] MEDS: OXYCODONE-ACETAMINOPHEN 5-325 MG TABLET PO PRN ×2 (12:38→19:57)
--- NOTE | 2020-06-12 13:23 | PDOC PROGRESS REPORT ---
Subjective Progress Note for:: 06/12/20 Subjective:: Patient was seen on morning rounds. Found resting in bed, comfortably, on room air. He states that he is feeling well; only complaint is that he is hungry (currently in n.p.o. status). He does ask for some pain medication. He tells me that he wants to go home today but understands that surgery would like to keep him at least 1 more day and look at his wound tomorrow before determining whether or not he is ready to discharge. Otherwise, he has no complaints or concerns. Specifically denies fever, chills, chest pain, palpitations, dyspnea, abdominal pain, nausea vomiting and diarrhea. Reports good appetite. No concerns per nursing. Reason For Visit: CELLULITIS Physical Exam Vital Signs: Temp Pulse Resp BP Pulse Ox 98.0 F 64 17 135/67 H 100 06/11/20 19:48 06/11/20 19:48 06/11/20 19:48 06/11/20 19:48 06/11/20 19:48 Intake & Output 06/11/20 06/12/20 06/13/20 06:59 06:59 06:59 Intake Total 1750 1250 Balance 1750 1250 Weight 85.4 kg 85.4 kg General appearance: PRESENT: no acute distress, cooperative, well-developed, well-nourished Head exam: PRESENT: atraumatic, normocephalic Eye exam: PRESENT: conjunctiva pink, EOMI, PERRLA. ABSENT: scleral icterus Mouth exam: PRESENT: moist, tongue midline Respiratory exam: PRESENT: clear to auscultation carole, symmetrical, unlabored. ABSENT: rales, rhonchi, wheezes Cardiovascular exam: PRESENT: RRR. ABSENT: diastolic murmur, rubs, systolic murmur Vascular exam: PRESENT: normal capillary refill GI/Abdominal exam: PRESENT: normal bowel sounds, soft. ABSENT: distended, gu arding, mass, organolmegaly, rebound, tenderness Rectal exam: PRESENT: deferred Extremities exam: PRESENT: full ROM, other - s/p left fifth toe metatarsal head amputation; surgical dressing in place with dried blood present. Wound not directly visualized. ABSENT: calf tenderness, clubbing, pedal edema Neurological exam: PRESENT: alert, awake, oriented to person, oriented to place, oriented to time, oriented to situation, CN II-XII grossly intact. ABSENT: motor sensory deficit Psychiatric exam: PRESENT: appropriate affect, normal mood. ABSENT: homicidal ideation, suicidal ideation Skin exam: PRESENT: dry, warm. ABSENT: cyanosis, rash Results Laboratory Results: 06/08/20 04:18 06/12/20 06:42 06/12/20 06:42 Sodium 138.8 Potassium 4.1 Chloride 104 Carbon Dioxide 28 Anion Gap 7 BUN 20 Creatinine 1.12 Est GFR ( Amer) > 60 Glucose 141 H Calcium 9.1 06/11/20 19:30 Toe - Amputation Site Gram Stain - Final 06/06/20 11:56 Blood Blood Culture - Final NO GROWTH IN 5 DAYS 06/06/20 10:30 Blood Blood Culture - Final NO GROWTH IN 5 DAYS Impressions: Foot X-Ray 06/06/20 10:32 IMPRESSION: No conventional radiographic evidence of osteomyelitis. Lower Extremity MRI 06/10/20 00:00 IMPRESSION: Abnormal marrow signal in the 5th proximal phalanx with decreased T1, increased T2 signal, and significant enhancement following contrast, this is most suggestive of osteomyelitis. Assessment and Plan - Diagnosis (1) Osteomyelitis Qualifiers: Osteomyelitis location: foot Laterality: left Is this a current diagnosis for this admission?: Yes Plan: MRI 06/10/20 reveals abnormal marrow signal in the fifth proximal phalanx with decreased T1, increased T2 signal, and significant enhancement following contrast. This is most suggestive of osteomyelitis. Surgery was consulted; now status post left fifth metatarsal amputation. Continue IV vancomycin and ceftriaxone. Wound care per surgery. (2) Diabetic infection of left foot Is this a current diagnosis for this admission?: Yes Plan: s/p left fifth metatarsal amputation by surgery. Culture with Proteus Mirabilis and enterococcus Blood cultures NG at 5 days Continue vancomycin per pharmacy protocol Continue ceftriaxone (3) Anemia Qualifiers: Anemia type: iron deficiency Is this a current diagnosis for this admission?: Yes Plan: Mild iron deficiency anemia. Hemoglobin stable at 11.1. No evidence of active bleeding at this time. Continue FeSO4 325 mg p.o. daily Monitor (4) EMERY (acute kidney injury) Is this a current diagnosis for this admission?: Yes Plan: Resolved. Holding metformin. Received IV fluids overnight. Encourage p.o. fluids. Recheck BMP in a.m. (5) CAD (coronary artery disease) Is this a current diagnosis for this admission?: Yes Plan: Patient denies any chest pain or shortness of breath Continue ASA 81 mg p.o. daily Continue clopidogrel 75 mg p.o. daily Continue daily statin therapy. (6) Type 2 diabetes mellitus Is this a current diagnosis for this admission?: Yes Plan: Hemoglobin A1c 5.8 Holding metformin Continue FS BS with SSI correction scale Cardiac/consistent carb diet. Hypoglycemia protocol in place. (7) Hypertension Qualifiers: Hypertension type: essential hypertension Qualified Code(s): I10 - Essential (primary) hypertension Is this a current diagnosis for this admission?: Yes Plan: Adequate BP control currently Continue metoprolol tartrate to 50 mg p.o. every 12 hours Continue lisinopril 40 mg p.o. daily Cardiac diet. - Time Time Spent with patient: 35 or more minutes Medications reviewed and adjusted accordingly: Yes Anticipated Discharge Disposition: Home, Self Care Anticipated Discharge: Other
[2020-06-12] MEDS: ATORVASTATIN CALCIUM 40 MG TABLET PO SCH (22:07)
[2020-06-13 06:13] LABS: HEMATOCRIT 33.7 % (37.9-51.0); HEMOGLOBIN 11.2 g/dL (13.5-17.0); MEAN CORPUSCULAR HEMOGLOBIN 31.1 pg (27.0-33.4); MEAN CORPUSCULAR HGB CONC 33.4 g/dL (32.0-36.0); MEAN CORPUSCULAR VOLUME 93 fl (80-97); PLATELET COUNT 292 10^3/uL (150-450); RED BLOOD COUNT 3.62 10^6/uL (4.35-5.55); RED CELL DISTRIBUTION WIDTH 14.2 % (11.5-14.0); WHITE BLOOD COUNT 6.5 10^3/uL (4.0-10.5)
[2020-06-13 06:38] LABS: ANION GAP 8 (5-19); BLOOD UREA NITROGEN 17 mg/dL (7-20); CALCIUM 9.8 mg/dL (8.4-10.2); CARBON DIOXIDE 30 mmol/L (22-30); CHLORIDE 101 mmol/L (98-107); GLUCOSE 124 mg/dL (75-110); POTASSIUM 4.3 mmol/L (3.6-5.0)
[2020-06-13] MEDS: OXYCODONE-ACETAMINOPHEN 5-325 MG TABLET PO PRN ×2 (06:49→19:23)
[2020-06-13] MEDS: INSULIN LISPRO 100 UNIT/ML 3 ML VIAL SUBCUT SCH ×4 (08:51→21:43)
[2020-06-13] MEDS: CLOPIDOGREL BISULFATE 75 MG TABLET PO SCH (09:38)
[2020-06-13] MEDS: ASPIRIN 81 MG TABLET, ENT COATED PO SCH (09:38)
[2020-06-13] MEDS: LISINOPRIL 10 MG TABLET PO SCH (09:39)
[2020-06-13] MEDS: ENOXAPARIN SODIUM INJ 40 MG/0.4 ML DISP.SYRIN SUBCUT SCH (09:39)
[2020-06-13] MEDS: METOPROLOL TARTRATE 50 MG TABLET PO SCH ×2 (09:39→21:43)
[2020-06-13] MEDS: CEFTRIAXONE 2 GM/D5W RTU 2 GM/50 ML RTUPB IV SCH (09:41)
--- NOTE | 2020-06-13 10:34 | PDOC PROGRESS REPORT ---
Subjective Progress Note for:: 06/13/20 Reason For Visit: CELLULITIS Physical Exam Vital Signs: Temp Pulse Resp BP Pulse Ox 98.5 F 68 16 163/63 H 98 06/13/20 07:16 06/13/20 07:16 06/13/20 07:16 06/13/20 07:16 06/13/20 07:16 Intake & Output 06/12/20 06/13/20 06/14/20 06:59 06:59 06:59 Intake Total 1250 1550 Balance 1250 1550 Weight 85.4 kg 85.4 kg Results Laboratory Results: 06/13/20 05:40 06/13/20 06/13/20 05:40 05:40 WBC 6.5 RBC 3.62 L Hgb 11.2 L Hct 33.7 L MCV 93 MCH 31.1 MCHC 33.4 RDW 14.2 H Plt Count 292 Sodium 138.9 Potassium 4.3 Chloride 101 Carbon Dioxide 30 Anion Gap 8 BUN 17 Creatinine 1.17 Est GFR ( Amer) > 60 Glucose 124 H Calcium 9.8 06/11/20 19:30 Toe - Amputation Site Gram Stain - Final Impressions: Foot X-Ray 06/06/20 10:32 IMPRESSION: No conventional radiographic evidence of osteomyelitis. Lower Extremity MRI 06/10/20 00:00 IMPRESSION: Abnormal marrow signal in the 5th proximal phalanx with decreased T1, increased T2 signal, and significant enhancement following contrast, this is most suggestive of osteomyelitis. Assessment & Plan - Diagnosis (1) Diabetic infection of left foot Is this a current diagnosis for this admission?: Yes - Time Anticipated Discharge Disposition: Home, Self Care Anticipated Discharge: Other - Plan Summary Plan Summary: 60-year-old male status post toe amputation due to a diabetic foot infection POD #2. The patient is doing reasonably well today. His dressing was taken down. He has no evidence of active purulence. He has no complaints today. I have encouraged him to ambulate on the heel only, with no pressure placed on the forefoot. Initiate damp to dry dressing changes twice daily. Surgery will follow.
[2020-06-13 10:35] LABS: VANCOMYCIN,TROUGH 15.1 ug/mL (5.0-20.0)
[2020-06-13] MEDS: VANCOMYCIN HCL 1,000 MG in DEXTROSE 5%-WATER 250 ML IV SCH (10:47)
--- NOTE | 2020-06-13 17:10 | PDOC PROGRESS REPORT ---
Subjective Progress Note for:: 06/13/20 Subjective:: Patient was seen on morning rounds. Found sitting up to the edge of the bed, comfortably, on room air. He states that he is feeling well. Discussed surgery's recommendation to continue wound care until post op day 5 and then proceed with closure of wound. Patient is frustrated but agreeable. He denies fever, chills, chest pain, palpitations, dyspnea, abdominal pain, nausea, vomiting, and diarrhea. Reports good appetite. He has no other questions or concerns. No concerns per nursing. Reason For Visit: CELLULITIS Physical Exam Vital Signs: Temp Pulse Resp BP Pulse Ox 99.0 F 66 17 137/61 H 100 06/13/20 15:11 06/13/20 15:11 06/13/20 15:11 06/13/20 15:11 06/13/20 15:11 Intake & Output 06/12/20 06/13/20 06/14/20 06:59 06:59 06:59 Intake Total 1250 1550 Balance 1250 1550 Weight 85.4 kg 85.4 kg General appearance: PRESENT: no acute distress, cooperative, well-developed, well-nourished Head exam: PRESENT: atraumatic, normocephalic Eye exam: PRESENT: conjunctiva pink, EOMI, PERRLA. ABSENT: scleral icterus Mouth exam: PRESENT: moist, tongue midline Respiratory exam: PRESENT: clear to auscultation carole, symmetrical, unlabored. ABSENT: rales, rhonchi, wheezes Cardiovascular exam: PRESENT: RRR. ABSENT: diastolic murmur, rubs, systolic murmur Pulses: PRESENT: normal dorsalis pedis pul Vascular exam: PRESENT: normal capillary refill Extremities exam: PRESENT: full ROM, other - s/p left fifth toe metatarsal head amputation. New dressing in place; wound not directly visualized.. ABSENT: calf tenderness, clubbing, pedal edema Neurological exam: PRESENT: alert, awake, oriented to person, oriented to place, oriented to time, oriented to situation, CN II-XII grossly intact. ABSENT: motor sensory deficit Psychiatric exam: PRESENT: appropriate affect, normal mood. ABSENT: homicidal ideation, suicidal ideation Skin exam: PRESENT: dry, warm. ABSENT: cyanosis, rash Results Laboratory Results: 06/13/20 05:40 06/13/20 09:49 06/13/20 06/13/20 06/13/20 05:40 05:40 09:49 WBC 6.5 RBC 3.62 L Hgb 11.2 L Hct 33.7 L MCV 93 MCH 31.1 MCHC 33.4 RDW 14.2 H Plt Count 292 Sodium 138.9 Potassium 4.3 Chloride 101 Carbon Dioxide 30 Anion Gap 8 BUN 17 Creatinine 1.17 1.19 Est GFR ( Amer) > 60 > 60 Glucose 124 H Calcium 9.8 06/11/20 19:30 Toe - Amputation Site Gram Stain - Final Impressions: Foot X-Ray 06/06/20 10:32 IMPRESSION: No conventional radiographic evidence of osteomyelitis. Lower Extremity MRI 06/10/20 00:00 IMPRESSION: Abnormal marrow signal in the 5th proximal phalanx with decreased T1, increased T2 signal, and significant enhancement following contrast, this is most suggestive of osteomyelitis. Assessment and Plan - Diagnosis (1) Osteomyelitis Qualifiers: Osteomyelitis location: foot Laterality: left Is this a current diagnosis for this admission?: Yes Plan: MRI 06/10/20 reveals abnormal marrow signal in the fifth proximal phalanx with decreased T1, increased T2 signal, and significant enhancement following contrast. This is most suggestive of osteomyelitis. Cultures reviewed; enterococcus and proteus sensitive to PCN Surgery was consulted; now status post left fifth metatarsal amputation. Discontinued vancomycin and ceftriaxone; received 8 days. Start Zosyn. Wound care per surgery. (2) Diabetic infection of left foot Is this a current diagnosis for this admission?: Yes Plan: s/p left fifth metatarsal amputation by surgery. Culture with Proteus Mirabilis and enterococcus; PCN sensitive. Blood cultures NG at 5 days Antibiotics as above. (3) Anemia Qualifiers: Anemia type: iron deficiency Is this a current diagnosis for this admission?: Yes Plan: Mild iron deficiency anemia. Hemoglobin stable at 11.1. No evidence of active bleeding at this time. Continue FeSO4 325 mg p.o. daily Monitor (4) EMERY (acute kidney injury) Is this a current diagnosis for this admission?: Yes Plan: Resolved. Holding metformin. Encourage p.o. fluids. (5) CAD (coronary artery disease) Is this a current diagnosis for this admission?: Yes Plan: Patient denies any chest pain or shortness of breath Continue ASA 81 mg p.o. daily Continue clopidogrel 75 mg p.o. daily Continue daily statin therapy. (6) Type 2 diabetes mellitus Qualifiers: Diabetes mellitus halfway insulin use: without superintendent [employer] use Diabetes mellitus complication detail: with foot ulcer Is this a current diagnosis for this admission?: Yes Plan: Hemoglobin A1c 5.8 Holding metformin Continue FS BS with SSI correction scale Cardiac/consistent carb diet. Hypoglycemia protocol in place. (7) Hypertension Qualifiers: Hypertension type: essential hypertension Qualified Code(s): I10 - Essential (primary) hypertension Is this a current diagnosis for this admission?: Yes Plan: Adequate BP control currently Continue metoprolol tartrate to 50 mg p.o. every 12 hours Continue lisinopril 40 mg p.o. daily Cardiac diet. - Time Time Spent with patient: 25-34 minutes Medications reviewed and adjusted accordingly: Yes Anticipated Discharge Disposition: Home, Self Care Anticipated Discharge Timeframe: >72 hrs
[2020-06-13] MEDS: PIPERACILLIN SODIUM/TAZOBACTAM 3.375 GM in NORMAL SALINE 100 ML IV SCH ×2 (19:23→23:19)
[2020-06-13] MEDS: ATORVASTATIN CALCIUM 40 MG TABLET PO SCH (21:43)
[2020-06-13] MEDS: HYDRALAZINE HCL INJ/PF 20 MG/1 ML SDV IV PRN (23:19)
[2020-06-14] MEDS: PIPERACILLIN SODIUM/TAZOBACTAM 3.375 GM in NORMAL SALINE 100 ML IV SCH ×3 (07:00→17:34)
[2020-06-14] MEDS: INSULIN LISPRO 100 UNIT/ML 3 ML VIAL SUBCUT SCH ×4 (08:08→21:33)
[2020-06-14] MEDS: LISINOPRIL 10 MG TABLET PO SCH (09:28)
[2020-06-14] MEDS: ASPIRIN 81 MG TABLET, ENT COATED PO SCH (09:29)
[2020-06-14] MEDS: METOPROLOL TARTRATE 50 MG TABLET PO SCH ×2 (09:29→21:33)
[2020-06-14] MEDS: ENOXAPARIN SODIUM INJ 40 MG/0.4 ML DISP.SYRIN SUBCUT SCH (09:29)
[2020-06-14] MEDS: CLOPIDOGREL BISULFATE 75 MG TABLET PO SCH (09:29)
--- NOTE | 2020-06-14 09:32 | PDOC PROGRESS REPORT ---
Subjective Progress Note for:: 06/14/20 Subjective:: No complaints Reason For Visit: CELLULITIS Physical Exam Vital Signs: Temp Pulse Resp BP Pulse Ox 98.7 F 70 20 154/82 H 100 06/14/20 08:00 06/14/20 08:00 06/14/20 08:00 06/14/20 08:00 06/14/20 08:00 Intake & Output 06/13/20 06/14/20 06/15/20 06:59 06:59 06:59 Intake Total 1550 1380 100 Balance 1550 1380 100 Weight 85.4 kg 86.2 kg Extremities exam: PRESENT: other - Surgical wound is clean with no active d rainage. No surrounding erythema. Stay sutures are in place. Wound packing was removed and then repacked. Results Laboratory Results: 06/13/20 05:40 06/13/20 09:49 06/13/20 09:49 Creatinine 1.19 Est GFR ( Amer) > 60 06/11/20 19:30 Toe - Amputation Site Gram Stain - Final Impressions: Foot X-Ray 06/06/20 10:32 IMPRESSION: No conventional radiographic evidence of osteomyelitis. Lower Extremity MRI 06/10/20 00:00 IMPRESSION: Abnormal marrow signal in the 5th proximal phalanx with decreased T1, increased T2 signal, and significant enhancement following contrast, this is most suggestive of osteomyelitis. Assessment & Plan - Diagnosis (1) Osteomyelitis Qualifiers: Osteomyelitis location: foot Laterality: left Is this a current diagnosis for this admission?: Yes Plan: Status post fifth toe amputation. The wound looks good. We will plan delayed primary closure on postop day #5. - Time Critical Time spent with patient: Less than 15 minutes Anticipated Discharge Disposition: Home, Self Care Anticipated Discharge Timeframe: within 72 hours
[2020-06-14] MEDS: OXYCODONE-ACETAMINOPHEN 5-325 MG TABLET PO PRN (17:37)
--- NOTE | 2020-06-14 19:16 | PDOC PROGRESS REPORT ---
Subjective Progress Note for:: 06/14/20 Subjective:: Patient was seen on morning rounds. Found sitting up to the edge of the bed, comfortably, on room air. He states that he is feeling well. Has no questions or concerns today. He denies fever, chills, chest pain, palpitations, dyspnea, abdominal pain, nausea, vomiting, and diarrhea. Reports good appetite. No concerns per nursing. Reason For Visit: CELLULITIS Physical Exam Vital Signs: Temp Pulse Resp BP Pulse Ox 98.2 F 71 16 162/68 H 100 06/14/20 12:00 06/14/20 12:00 06/14/20 12:00 06/14/20 12:00 06/14/20 12:00 Intake & Output 06/13/20 06/14/20 06/15/20 06:59 06:59 06:59 Intake Total 1550 1380 300 Balance 1550 1380 300 Weight 85.4 kg 86.2 kg General appearance: PRESENT: no acute distress, cooperative, well-developed, well-nourished Head exam: PRESENT: atraumatic, normocephalic Eye exam: PRESENT: conjunctiva pink, EOMI, PERRLA. ABSENT: scleral icterus Mouth exam: PRESENT: moist, tongue midline Respiratory exam: PRESENT: clear to auscultation carole, symmetrical, unlabored. ABSENT: rales, rhonchi, wheezes Cardiovascular exam: PRESENT: RRR. ABSENT: diastolic murmur, rubs, systolic murmur Vascular exam: PRESENT: normal capillary refill Extremities exam: PRESENT: full ROM, other - s/p left fifth toe metatarsal head amputation.. ABSENT: calf tenderness, clubbing, pedal edema Neurological exam: PRESENT: alert, awake, oriented to person, oriented to place, oriented to time, oriented to situation, CN II-XII grossly intact. ABSENT: motor sensory deficit Psychiatric exam: PRESENT: appropriate affect, normal mood. ABSENT: homicidal ideation, suicidal ideation Skin exam: PRESENT: dry, intact, warm. ABSENT: cyanosis, rash Results Laboratory Results: 06/13/20 05:40 06/13/20 09:49 06/11/20 19:30 Toe - Amputation Site Gram Stain - Final Impressions: Foot X-Ray 06/06/20 10:32 IMPRESSION: No conventional radiographic evidence of osteomyelitis. Lower Extremity MRI 06/10/20 00:00 IMPRESSION: Abnormal marrow signal in the 5th proximal phalanx with decreased T1, increased T2 signal, and significant enhancement following contrast, this is most suggestive of osteomyelitis. Assessment and Plan - Diagnosis (1) Osteomyelitis Qualifiers: Osteomyelitis location: foot Laterality: left Is this a current diagnosis for this admission?: Yes Plan: MRI 06/10/20 reveals abnormal marrow signal in the fifth proximal phalanx with decreased T1, increased T2 signal, and significant enhancement following contrast. This is most suggestive of osteomyelitis. Cultures reviewed; enterococcus and proteus sensitive to PCN Surgery was consulted; now status post left fifth metatarsal amputation. Discontinued vancomycin and ceftriaxone; received 8 days. Continue Zosyn. Day #2 Wound care per surgery. (2) Diabetic infection of left foot Is this a current diagnosis for this admission?: Yes Plan: s/p left fifth metatarsal amputation by surgery. Culture with Proteus Mirabilis and enterococcus; PCN sensitive. Blood cultures NG at 5 days Antibiotics as above. (3) Anemia Qualifiers: Anemia type: iron deficiency Is this a current diagnosis for this admission?: Yes Plan: Mild iron deficiency anemia. Hemoglobin stable at 11.1. No evidence of active bleeding at this time. Continue FeSO4 325 mg p.o. daily Monitor (4) EMERY (acute kidney injury) Is this a current diagnosis for this admission?: Yes Plan: Resolved. Holding metformin. Encourage p.o. fluids. (5) CAD (coronary artery disease) Is this a current diagnosis for this admission?: Yes Plan: Patient denies any chest pain or shortness of breath Continue ASA 81 mg p.o. daily Continue clopidogrel 75 mg p.o. daily Continue daily statin therapy. (6) Type 2 diabetes mellitus Qualifiers: Diabetes mellitus nursing home insulin use: without nursing home use Diabetes mellitus complication detail: with foot ulcer Is this a current diagnosis for this admission?: Yes Plan: Hemoglobin A1c 5.8 Holding metformin Continue FS BS with SSI correction scale Cardiac/consistent carb diet. Hypoglycemia protocol in place. (7) Hypertension Qualifiers: Hypertension type: essential hypertension Qualified Code(s): I10 - Essential (primary) hypertension Is this a current diagnosis for this admission?: Yes Plan: Continue metoprolol tartrate to 50 mg p.o. every 12 hours Continue lisinopril 40 mg p.o. daily Start amlodipine Cardiac diet. - Time Time Spent with patient: 15-24 minutes Medications reviewed and adjusted accordingly: Yes Anticipated Discharge Disposition: Home with Home Health Anticipated Discharge Timeframe: >72 hrs
[2020-06-14] MEDS: ATORVASTATIN CALCIUM 40 MG TABLET PO SCH (21:33)
[2020-06-14] MEDS ORDERED: AMLODIPINE BESYLATE 5 MG TABLET PO SCH (22:00)
[2020-06-15] MEDS: PIPERACILLIN SODIUM/TAZOBACTAM 3.375 GM in NORMAL SALINE 100 ML IV SCH ×3 (00:53→11:26)
[2020-06-15] MEDS: OXYCODONE-ACETAMINOPHEN 5-325 MG TABLET PO PRN (01:45)
[2020-06-15 04:57] LABS: HEMATOCRIT 30.7 % (37.9-51.0); MEAN CORPUSCULAR HEMOGLOBIN 30.6 pg (27.0-33.4); MEAN CORPUSCULAR HGB CONC 32.5 g/dL (32.0-36.0); MEAN CORPUSCULAR VOLUME 94 fl (80-97); PLATELET COUNT 275 10^3/uL (150-450); RED BLOOD COUNT 3.26 10^6/uL (4.35-5.55); RED CELL DISTRIBUTION WIDTH 13.9 % (11.5-14.0)
[2020-06-15 05:21] LABS: ANION GAP 6 (5-19); BLOOD UREA NITROGEN 17 mg/dL (7-20); CALCIUM 8.9 mg/dL (8.4-10.2); CARBON DIOXIDE 29 mmol/L (22-30); CHLORIDE 103 mmol/L (98-107); GLUCOSE 132 mg/dL (75-110); POTASSIUM 4.2 mmol/L (3.6-5.0)
[2020-06-15] MEDS: INSULIN LISPRO 100 UNIT/ML 3 ML VIAL SUBCUT SCH ×2 (09:00→11:25)
[2020-06-15] MEDS: METOPROLOL TARTRATE 50 MG TABLET PO SCH (11:24)
[2020-06-15] MEDS: ASPIRIN 81 MG TABLET, ENT COATED PO SCH (11:24)
[2020-06-15] MEDS: LISINOPRIL 10 MG TABLET PO SCH (11:25)
[2020-06-15] MEDS: ENOXAPARIN SODIUM INJ 40 MG/0.4 ML DISP.SYRIN SUBCUT SCH (11:25)
[2020-06-15] MEDS: CLOPIDOGREL BISULFATE 75 MG TABLET PO SCH (11:25)
--- NOTE | 2020-06-15 11:27 | PDOC PROGRESS REPORT ---
Subjective Progress Note for:: 06/15/20 Subjective:: s/p left 5 toe amputation Reason For Visit: CELLULITIS Physical Exam Vital Signs: Temp Pulse Resp BP Pulse Ox 98.6 F 69 12 156/63 H 97 06/15/20 07:32 06/15/20 07:32 06/15/20 07:32 06/15/20 07:32 06/15/20 07:32 Intake & Output 06/14/20 06/15/20 06/16/20 06:59 06:59 06:59 Intake Total 1380 720 Balance 1380 720 Weight 86.2 kg 85.3 kg General appearance: PRESENT: no acute distress Head exam: PRESENT: normocephalic Eye exam: PRESENT: EOMI Ear exam: PRESENT: normal external ear exam Mouth exam: PRESENT: moist Teeth exam: PRESENT: poor dentation Neck exam: PRESENT: full ROM Respiratory exam: PRESENT: clear to auscultation carole Cardiovascular exam: PRESENT: RRR Pulses: PRESENT: normal radial pulses, normal femoral pulses Breast: PRESENT: Normal GI/Abdominal exam: PRESENT: soft Extremities exam: PRESENT: other - left 5th toe amp site clean skin reapproximated iwth sutures dressed with xerform gauze Neurological exam: PRESENT: alert, awake, oriented to person, oriented to place Skin exam: PRESENT: dry Results Laboratory Results: 06/15/20 04:04 06/15/20 04:04 06/15/20 06/15/20 04:04 04:04 WBC 5.0 RBC 3.26 L Hgb 10.0 L Hct 30.7 L MCV 94 MCH 30.6 MCHC 32.5 RDW 13.9 Plt Count 275 Sodium 137.7 Potassium 4.2 Chloride 103 Carbon Dioxide 29 Anion Gap 6 BUN 17 Creatinine 1.32 H Est GFR ( Amer) > 60 Glucose 132 H Calcium 8.9 06/11/20 19:30 Toe - Amputation Site Gram Stain - Final Impressions: Foot X-Ray 06/06/20 10:32 IMPRESSION: No conventional radiographic evidence of osteomyelitis. Lower Extremity MRI 06/10/20 00:00 IMPRESSION: Abnormal marrow signal in the 5th proximal phalanx with decreased T1, increased T2 signal, and significant enhancement following contrast, this is most suggestive of osteomyelitis. Assessment & Plan - Time Time Spent: 50 to 70 Minutes Critical Time spent with patient: 15-24 minutes Smoking Cessation Education: over 10 minutes Medications reviewed and adjusted accordingly: No Anticipated Discharge Disposition: Home, Self Care Anticipated Discharge Timeframe: within 36 hours - Plan Summary Plan Summary: s/p left 5th toe amputation skin reapproximated iwth suture dressed with xeroform gauze recommend daily dressing change iwth xerofrom gauze cn f/u in surgery clinic in 10-14 days. please reconsult surgery if necessaryl
[2020-06-15 12:13] VITALS: BP 155/75
--- NOTE | 2020-06-17 16:21 | PDOC DISCHARGE SUMMARY ---
Impression - Admit/DC Date/PCP Admission Date/Primary Care Provider: 06/06/20 12:22 AMBAR WALLACE MD Discharge Date: 06/15/20 - Discharge Diagnosis (1) Osteomyelitis Is this a current diagnosis for this admission?: Yes (2) Diabetic infection of left foot Is this a current diagnosis for this admission?: Yes (3) Anemia Is this a current diagnosis for this admission?: Yes (4) EMERY (acute kidney injury) Is this a current diagnosis for this admission?: Yes (5) CAD (coronary artery disease) Is this a current diagnosis for this admission?: Yes (6) Type 2 diabetes mellitus Is this a current diagnosis for this admission?: Yes (7) Hypertension Is this a current diagnosis for this admission?: Yes - Additional Information Discharge Diet: Diabetic Discharge Activity: Activity As Tolerated, Balance Activity w/Rest, Other Referrals: [facility] [Provider Group] - 06/22/20 3:30 pm Prescriptions: Amoxicillin/Potassium Clav [Augmentin 875-125 Tablet] 1 tab PO BID #20 tab Metoprolol Tartrate [Lopressor 50 mg Tablet] 50 mg PO Q12 #60 tablet Amlodipine Besylate [Norvasc 5 mg Tablet] 5 mg PO QHS #30 tablet Oxycodone HCl/Acetaminophen [Percocet 5-325 mg Tablet] 2 tab PO Q4HP PRN #12 tablet PRN Reason: Lisinopril [Prinivil 10 mg Tablet] 40 mg PO DAILY #120 tablet Home Medications: Aspirin [Ecotrin 81 mg EC Tablet] 81 mg PO DAILY tabec 08/28/16 Clopidogrel Bisulfate [Plavix 75 mg Tablet] 75 mg PO DAILY tablet 08/28/16 Metformin HCl [Glucophage 500 mg Tablet] 1,000 mg PO BID #60 tablet 03/10/18 Atorvastatin Calcium [Lipitor 40 mg Tablet] 40 mg PO QHS 06/06/20 Acetaminophen [Tylenol 325 mg Tablet] 650 mg PO Q4HP PRN tablet 06/15/20 Amlodipine Besylate [Norvasc 5 mg Tablet] 5 mg PO QHS #30 tablet 06/15/20 Amoxicillin/Potassium Clav [Augmentin 875-125 Tablet] 1 tab PO BID #20 tab 06/15/20 Lisinopril [Prinivil 10 mg Tablet] 40 mg PO DAILY #120 tablet 06/15/20 Metoprolol Tartrate [Lopressor 50 mg Tablet] 50 mg PO Q12 #60 tablet 06/15/20 Oxycodone HCl/Acetaminophen [Percocet 5-325 mg Tablet] 2 tab PO Q4HP PRN #12 tablet 06/15/20 History of Present Illiness History of Present Illness: Per H&P by Antonina Martinez: ELISA WHITFIELD is a 60 year old male presented to the ED at the request of his PCP for left fourth and fifth toe wounds with associated cellulitis. According to the patient he had a "corn" removed from his left "little toe" approximately 2 weeks ago. Subsequently the wound did not heal as expected and the patient developed worsening pain in his left foot. He returned to his PCPs office and was advised to present to the ED for evaluation and treatment. The patient denies fever and chills as well as drainage from the wounds. He does report swelling and pain with ambulation. In the ED an x-ray was completed which revealed normal mineralization with no radiographic evidence of osteomyelitis. The hospitalist service was requested to admit the patient for further evaluation and treatment. Hospital Course Hospital Course: (1) Osteomyelitis MRI 06/10/20 reveals abnormal marrow signal in the fifth proximal phalanx with decreased T1, increased T2 signal, and significant enhancement following contrast. This is most suggestive of osteomyelitis. Cultures reviewed; enterococcus and proteus sensitive to PCN Surgery was consulted; now status post left fifth metatarsal amputation. Discontinued vancomycin and ceftriaxone, received 8 days, followed by Zosyn x 2. Surgery has determined patient is acceptable for discharge to home with daily, dry, dressing changes and follow-up in their office. He is discharged with a prescription for Augmentin to continue until his follow- up appointment. He is instructed not to weight-bear on that foot; may heel walk only. (2) Diabetic infection of left foot s/p left fifth metatarsal amputation by surgery. Culture with Proteus Mirabilis and enterococcus; PCN sensitive. Blood cultures NG at 5 days Antibiotics as above. (3) Anemia Mild iron deficiency anemia. Hemoglobin stable at 11.1. No evidence of active bleeding at this time. Continue FeSO4 325 mg p.o. daily (4) EMERY (acute kidney injury) Resolved. (5) CAD (coronary artery disease) Patient denies any chest pain or shortness of breath Continue ASA 81 mg p.o. daily Continue clopidogrel 75 mg p.o. daily Continue daily statin therapy. (6) Type 2 diabetes mellitus Hemoglobin A1c 5.8 Resume outpatient regiment upon discharge. (7) Hypertension Continue metoprolol tartrate to 50 mg p.o. every 12 hours Continue lisinopril 40 mg p.o. daily Continue amlodipine Cardiac diet. Physical Exam Vital Signs: Temp Pulse Resp BP Pulse Ox 98.9 F 64 12 155/75 H 100 06/15/20 11:25 06/15/20 11:25 06/15/20 11:25 06/15/20 11:25 06/15/20 11:25 Intake & Output 06/16/20 06/17/20 06/18/20 06:59 06:59 06:59 Intake Total 340 Balance 340 General appearance: PRESENT: no acute distress, cooperative, well-developed, well-nourished Head exam: PRESENT: atraumatic, normocephalic Eye exam: PRESENT: conjunctiva pink, EOMI, PERRLA. ABSENT: scleral icterus Mouth exam: PRESENT: moist, tongue midline Respiratory exam: PRESENT: clear to auscultation carole, symmetrical, unlabored. ABSENT: rales, rhonchi, wheezes Cardiovascular exam: PRESENT: RRR. ABSENT: diastolic murmur, rubs, systolic murmur Pulses: PRESENT: normal dorsalis pedis pul Vascular exam: PRESENT: normal capillary refill Extremities exam: PRESENT: full ROM, other - s/p left fifth toe metatarsal head amputation. ABSENT: calf tenderness, clubbing, pedal edema Neurological exam: PRESENT: alert, awake, oriented to person, oriented to place, oriented to time, oriented to situation, CN II-XII grossly intact. ABSENT: motor sensory deficit Psychiatric exam: PRESENT: appropriate affect, normal mood. ABSENT: homicidal ideation, suicidal ideation Skin exam: PRESENT: dry, intact, warm. ABSENT: cyanosis, rash Results Laboratory Results: WBC 5.0 10^3/uL (4.0-10.5) 06/15/20 04:04 RBC 3.26 10^6/uL (4.35-5.55) L 06/15/20 04:04 Hgb 10.0 g/dL (13.5-17.0) L 06/15/20 04:04 Hct 30.7 % (37.9-51.0) L 06/15/20 04:04 MCV 94 fl (80-97) 06/15/20 04:04 MCH 30.6 pg (27.0-33.4) 06/15/20 04:04 MCHC 32.5 g/dL (32.0-36.0) 06/15/20 04:04 RDW 13.9 % (11.5-14.0) 06/15/20 04:04 Plt Count 275 10^3/uL (150-450) 06/15/20 04:04 Lymph % (Auto) 24.9 % (13-45) 06/08/20 04:18 [place] % (Auto) 8.4 % (3-13) 06/08/20 04:18 Eos % (Auto) 3.9 % (0-6) 06/08/20 04:18 Baso % (Auto) 1.0 % (0-2) 06/08/20 04:18 Reticulocyte # 0.051 10^6/uL (0.028-0.122) 06/07/20 05:43 Absolute Neuts (auto) 4.0 10^3/uL (1.7-8.2) 06/08/20 04:18 Absolute Lymphs (auto) 1.6 10^3/uL (0.5-4.7) 06/08/20 04:18 Absolute Monos (auto) 0.5 10^3/uL (0.1-1.4) 06/08/20 04:18 Absolute Eos (auto) 0.2 10^3/uL (0.0-0.6) 06/08/20 04:18 Absolute Basos (auto) 0.1 10^3/uL (0.0-0.2) 06/08/20 04:18 Seg Neutrophils % 61.8 % (42-78) 06/08/20 04:18 Retic Count (auto) 1.37 % (0.66-2.85) 06/07/20 05:43 Sodium 137.7 mmol/L (137-145) 06/15/20 04:04 Potassium 4.2 mmol/L (3.6-5.0) 06/15/20 04:04 Chloride 103 mmol/L (98-107) 06/15/20 04:04 Carbon Dioxide 29 mmol/L (22-30) 06/15/20 04:04 Anion Gap 6 (5-19) 06/15/20 04:04 BUN 17 mg/dL (7-20) 06/15/20 04:04 Creatinine 1.32 mg/dL (0.52-1.25) H 06/15/20 04:04 Est GFR ( Amer) > 60 (>60) 06/15/20 04:04 Est GFR (MDRD) Non-Af 55 (>60) L 06/15/20 04:04 Glucose 132 mg/dL (75-110) H 06/15/20 04:04 POC Glucose 162 mg/dL (70-110) H 06/15/20 10:52 Hemoglobin A1c % 5.8 % (4.7-6.0) 06/07/20 05:43 Calcium 8.9 mg/dL (8.4-10.2) 06/15/20 04:04 Iron 41.7 ug/dL (49-181) L 06/07/20 05:43 TIBC 343 ug/dL (250-450) 06/07/20 05:43 % Saturation 12 % 06/07/20 05:43 Ferritin 29.00 ng/mL (17.9-464.0) 06/07/20 05:43 Vitamin B12 458.0 pg/mL (239-931) 06/07/20 05:43 Folate 10.10 ng/mL (>2.76) 06/07/20 05:43 Time Trough Drawn 0949 06/13/20 09:49 Vancomycin Trough 15.1 ug/mL (5.0-20.0) 06/13/20 09:49 Impressions: Foot X-Ray 06/06/20 10:32 IMPRESSION: No conventional radiographic evidence of osteomyelitis. Lower Extremity MRI 06/10/20 00:00 IMPRESSION: Abnormal marrow signal in the 5th proximal phalanx with decreased T1, increased T2 signal, and significant enhancement following contrast, this is most suggestive of osteomyelitis. Plan Plan of Treatment: Patient is discharged home in stable condition. He is advised follow-up with his primary care provider within 1 week. Follow-up with [facility] surgical clinic, as scheduled, on 06/22/2020. Complete course of antibiotic therapy. Continue dry dressing changes daily. Return to the emergency department as needed for concerning symptoms. Time Spent: Greater than 30 Minutes Stroke Is this a Stroke Patient?: No Acute Heart Failure - Is this a Heart Failure Patient?: No
== END 2020-06-15 17:45 | disposition home or self-care (01) | DRG 617 ==
LOC: ER 09:47 → INTOOBSV 12:22 → OBSVTOIN 12:22 → EH 12:22 → INTOOBSV 12:39 → OBSVTOIN 12:39 → 4S 13:48
PROVIDERS: ADMIT Hospitalist; ATTEND Registered Nurse
PROC: 0Y6Y0Z3 Detachment at Left 5th Toe, Low, Open Approach (ICD-10-PCS; principal; 2020-06-11)
DX: E11.628 Type 2 diabetes mellitus with other skin complications (principal); M86.9 Osteomyelitis, unspecified; E11.42 Type 2 diabetes mellitus with diabetic polyneuropathy; N17.9 Acute kidney failure, unspecified; L97.529 Non-pressure chronic ulcer of other part of left foot with unspecified severity; I25.10 Atherosclerotic heart disease of native coronary artery without angina pectoris; I10 Essential (primary) hypertension; E78.5 Hyperlipidemia, unspecified; D50.9 Iron deficiency anemia, unspecified; B96.4 Proteus (mirabilis) (morganii) as the cause of diseases classified elsewhere; B95.2 Enterococcus as the cause of diseases classified elsewhere; B96.89 Other specified bacterial agents as the cause of diseases classified elsewhere; F17.210 Nicotine dependence, cigarettes, uncomplicated; Z79.01 Long term (current) use of anticoagulants; Z95.5 Presence of coronary angioplasty implant and graft; Z79.84 Long term (current) use of oral hypoglycemic drugs; Z79.82 Long term (current) use of aspirin; Z79.899 Other long term (current) drug therapy
CPT/HCPCS: 36415; 80048; 80202; 82565; 82607; 82728; 82746; 82962; 83036; 83540; 83550; 85025; 85027; 85045; 87040; 87070; 87077; 87186; 87205; 93005; 93010; 96365; 99284; A9576; G0378; J0360; J0692; J0696; J1650; J1815; J2270; J2543; J3370; J3490; J7030; J7050; J7060

== ENCOUNTER 2020-07-07 14:21 | Observation (INO) | payer MEDICAID ==
--- NOTE | 2020-07-07 14:39 | ER Document Report ---
ED Medical Screen (RME) - General Chief Complaint: Leg Pain Stated Complaint: LEFT LEG AND FOOT PAIN Time Seen by Provider: 07/07/20 14:35 Primary Care Provider: AURA SON MD [Primary Care Provider] - Follow up as needed Mode of Arrival: Wheelchair Information source: Patient Notes: Patient is a 60-year-old male presents emergency department chief complaint of pain from his left foot up to his left knee. Patient reports 3 weeks ago he had his left fifth digit removed. He states pain has gotten worse since then. He denies any fever or chills. No obvious swelling noted, dressing is in place surgical site. I have greeted and performed a rapid initial assessment of this patient. A comprehensive ED assessment and evaluation of the patient, analysis of test results and completion of the medical decision making process will be conducted by additional ED providers. I have specifically instructed the patient or family members with the patient to immediately return to any nursing staff should anything change in the patient's condition or with their chief complaint. TRAVEL OUTSIDE OF THE [place] IN LAST 30 DAYS: No - Related Data Allergies/Adverse Reactions: No Known Allergies Allergy (Verified 07/07/20 14:35) Past Medical History - Past Medical History Cardiac Medical History: Reports: Hx Coronary Artery Disease - History of 2 stents and CABG x 3 in 2018, Hx Hypercholesterolemia, Hx Hypertension Pulmonary Medical History: Denies: Hx Asthma, Hx Bronchitis, Hx COPD, Hx Pneumonia, Hx Intubation, Hx Respiratory Failure, Hx Sleep Apnea, Hx Tuberculosis Neurological Medical History: Denies: Hx Cerebrovascular Accident, Hx Migraine, Hx Seizures Endocrine Medical History: Reports: Hx Diabetes Mellitus Type 2 Renal/ Medical History: Denies: Hx Peritoneal Dialysis Psychiatric Medical History: Denies: Hx Depression Past Surgical History: Reports: Hx Cardiac Catheterization - w/ stents, Hx Coronary Artery Bypass Graft. Denies: Hx Cardiac Surgery - Immunizations Hx Diphtheria, Pertussis, Tetanus Vaccination: Yes Physical Exam - Vital signs Vitals: Temp Pulse Resp BP Pulse Ox 98.8 F 118 H 16 110/73 98 07/07/20 14:34 07/07/20 14:34 07/07/20 14:34 07/07/20 14:34 07/07/20 14:34 Course - Vital Signs Vital signs: Temp Pulse Resp BP Pulse Ox 98.8 F 118 H 16 110/73 98 07/07/20 14:34 07/07/20 14:34 07/07/20 14:34 07/07/20 14:34 07/07/20 14:34 Doctor's Discharge - Discharge Referrals: AURA SON MD [Primary Care Provider] - Follow up as needed
[2020-07-07 15:26] LABS: ABSOLUTE BASOPHILS # (AUTO) 0.1 10^3/uL (0.0-0.2); ABSOLUTE EOSINOPHILS # (AUTO) 0.1 10^3/uL (0.0-0.6); ABSOLUTE MONOCYTES (AUTO) 0.7 10^3/uL (0.1-1.4); ABSOLUTE NEUT (AUTO) 7.6 10^3/uL (1.7-8.2); EOSINOPHILS % (AUTO) 1.4 % (0-6); HEMATOCRIT 36.2 % (37.9-51.0); LYMPHOCYTES % (AUTO) 19.3 % (13-45); MEAN CORPUSCULAR HEMOGLOBIN 29.7 pg (27.0-33.4); MEAN CORPUSCULAR HGB CONC 33.2 g/dL (32.0-36.0); MONOCYTES % (AUTO) 6.5 % (3-13); PLATELET COUNT 305 10^3/uL (150-450); RED BLOOD COUNT 4.04 10^6/uL (4.35-5.55); RED CELL DISTRIBUTION WIDTH 14.2 % (11.5-14.0); SEGMENTED NEUTROPHILS % (AUTO) 71.8 % (42-78); TOTAL CELLS COUNTED % (AUTO) 100 %; WHITE BLOOD COUNT 10.6 10^3/uL (4.0-10.5)
[2020-07-07 15:34] LABS: ALBUMIN 3.8 g/dL (3.5-5.0); ALKALINE PHOSPHATASE 134 U/L (38-126); ANION GAP 12 (5-19); ASPARTATE AMINO TRANSFERASE 14 U/L (17-59); BILIRUBIN,DIRECT 0.2 mg/dL (0.0-0.4); BILIRUBIN,TOTAL 0.6 mg/dL (0.2-1.3); BLOOD UREA NITROGEN 17 mg/dL (7-20); CALCIUM 9.6 mg/dL (8.4-10.2); CARBON DIOXIDE 26 mmol/L (22-30); CHLORIDE 100 mmol/L (98-107); GLUCOSE 252 mg/dL (75-110); POTASSIUM 4.1 mmol/L (3.6-5.0); TOTAL PROTEIN 7.6 g/dL (6.3-8.2)
[2020-07-07 15:36] LABS: MEAN CORPUSCULAR VOLUME 90 fl (80-97)
[2020-07-07 15:46] LABS: C-REACTIVE PROTEIN 161.2 mg/L (<10.0)
--- NOTE | 2020-07-07 15:57 | ER Document Report ---
ED Extremity Problem, Lower - General Chief Complaint: Leg Pain Stated Complaint: LEFT LEG AND FOOT PAIN Time Seen by Provider: 07/07/20 14:35 Mode of Arrival: Wheelchair Information source: Patient Notes: This 60-year-old male presents to the emergency department with a history of left lower extremity pain. States that he had a amputation of the fifth toe approximately 3 weeks ago. He has continued to have some difficulties with an area that has not closed post surgery. They are doing home packing and the patient has noted pain that radiates into his leg with severe pain. He complai ns of inability to lift the leg due to the severity of the pain. He had his surgery performed at [facility]. He is diabetic, hypertensive and has some symptoms of peripheral vascular disease. Blood sugar has been in the 300s and his pain has been severe enough to keep him awake at night. He has been given a prescription for Neurontin 300 mg but has not had any relief of his symptoms. TRAVEL OUTSIDE OF THE [place] IN LAST 30 DAYS: No - Related Data Allergies/Adverse Reactions: No Known Allergies Allergy (Verified 07/07/20 14:35) Home Medications: .... Past Medical History - General Information source: Patient - Social History Smoking Status: Current Some Day Smoker Chew tobacco use (# tins/day): No Frequency of alcohol use: None Drug Abuse: None Family History: CAD, DM Patient has homicidal ideation: No - Past Medical History Cardiac Medical History: Reports: Hx Coronary Artery Disease - History of 2 stents and CABG x 3 in 2018, Hx Hypercholesterolemia, Hx Hypertension Pulmonary Medical History: Denies: Hx Asthma, Hx Bronchitis, Hx COPD, Hx Pneumonia, Hx Intubation, Hx Respiratory Failure, Hx Sleep Apnea, Hx Tuberculosis Neurological Medical History: Denies: Hx Cerebrovascular Accident, Hx Migraine, Hx Seizures Endocrine Medical History: Reports: Hx Diabetes Mellitus Type 2 Renal/ Medical History: Denies: Hx Peritoneal Dialysis Psychiatric Medical History: Denies: Hx Depression Past Surgical History: Reports: Hx Cardiac Catheterization - w/ stents, Hx Coronary Artery Bypass Graft. Denies: Hx Cardiac Surgery - Immunizations Hx Diphtheria, Pertussis, Tetanus Vaccination: Yes Review of Systems - Review of Systems Notes: Constitutional: Negative for fever. HENT: Negative for sore throat. Eyes: Negative for visual changes. Cardiovascular: Negative for chest pain. Respiratory: Negative for shortness of breath. Gastrointestinal: Negative for abdominal pain, vomiting or diarrhea. Genitourinary: Negative for dysuria. Musculoskeletal: + Left lower extremity pain, + open wound left foot Skin: Negative for rash. Neurological: Negative for headaches, weakness or numbness. 10 point ROS negative except as marked above and in HPI. Physical Exam - Vital signs Vitals: Temp Pulse Resp BP Pulse Ox 98.8 F 118 H 16 110/73 98 07/07/20 14:34 07/07/20 14:34 07/07/20 14:34 07/07/20 14:34 07/07/20 14:34 - Notes Notes: PHYSICAL EXAMINATION: Physical Exam: General: Well-nourished well-developed 60-year-old man in acute distress secondary to pain. HEENT: NC/AT, pupils equal round and reactive to light, MM moist,nares clear, oropharynx clear, airway patent Neck: supple, no adenopathy, no masses. Good range of motion Lungs: clear, no wheezing, no rales no rhonchi CVS: Regular rate and rhythm no murmur gallop or rub Abdomen: Soft, active, nontender, no masses, no hepatosplenomegaly Ext: Left foot with cool toes, hyperpigmented skin, thickening of the skin, postsurgical l site at the fifth metatarsal open wound with packing in place. Yellowish-white drainage noted with palpation on the side of the foot. There is tenderness along the proximal foot, + weak dorsalis pedis pulse, unable to palpate posterior tibialis pulse. There is a good posterior popliteal pulse and femoral pulse noted. The right foot warm, nontender, dry. Neuro: Alert and responsive, moving all 4 extremities on command, cranial nerves intact, no focal findings Skin: Intact no open lesions, no rash PSYCH: Normal mood, normal affect. Course - Re-evaluation Re-evalutation: 07/07/20 19:31 I have contacted the hospitalist regarding the patient's nonhealing wound and elevated white count, elevated sed rate. Patient will be brought into the hospital observation status for culture of the fluid, wound care and pain management. I have contacted the surgical site, Dr. Hong, he has looked at the patient's wound suggested that he continue packing and follow-up with Dr. Riddle in approximately 1 month. There is no need for an acute surgical intervention. - Vital Signs Vital signs: Temp Pulse Resp BP Pulse Ox 98.8 F 118 H 16 110/73 98 07/07/20 14:34 07/07/20 14:34 07/07/20 14:34 07/07/20 14:34 07/07/20 14:34 - Laboratory Result Diagrams: 07/07/20 14:55 07/07/20 17:55 Laboratory results interpreted by me: 07/07/20 07/07/20 07/07/20 14:55 14:55 17:55 WBC 10.6 H RBC 4.04 L Hgb 12.0 L Hct 36.2 L RDW 14.2 H ESR 104 H Sodium 135.9 L Glucose 252 H 255 H AST 14 L 15 L Alkaline Phosphatase 134 H C-Reactive Protein 161.2 H - Diagnostic Test Radiology reviewed: Image reviewed, Reports reviewed Radiology results interpreted by me: 07/07/20 19:35 Left leg Doppler: No DVT CTA left lower extremity: Left SFA is occluded from just below the groin level of the popliteal artery which reconstitutes collateral vessels. Right SFA is occluded at the mid thigh level to the popliteal artery which reconstitutes through collateral vessels. Multilevel moderate to severe stenosis due to atherosclerotic plaque is present throughout both common and superficial femoral arteries proximally. No other significant findings noted. Discharge - Discharge Clinical Impression: Diabetic infection of left foot, Peripheral vascular disease Type 2 diabetes mellitus Qualifiers: Diabetes mellitus ferry terminal agent insulin use: without snf use Diabetes mellitus complication status: with circulatory complication Diabetes mellitus complication detail: with other circulatory complications Qualified Code(s): E11.59 - Type 2 diabetes mellitus with other circulatory complications Condition: Good Disposition: ADMITTED OBSERVATION Admitting Provider: Luis (Hospitalist) Unit Admitted: Medical Floor
[2020-07-07 16:09] LABS: ERYTHROCYTE SEDIMENTATION RATE 104 mm/hr (0-20)
[2020-07-07] MEDS ORDERED: HYDROMORPHONE HCL INJ/PF 2 MG/ML AMPULE IV ONE ×2 (16:28→18:24)
[2020-07-07] MEDS ORDERED: PIPERACILLIN/TAZOBACTAM 3.375 GM VIAL IV ONE (17:36)
--- NOTE | 2020-07-07 17:56 | RADIOLOGY REPORT (SQ) ---
EXAM DESCRIPTION: CTA LEFT LOWER EXTREMITY IMAGES COMPLETED DATE/TIME: 07/07/2020 5:03 pm REASON FOR STUDY: Decreased pulses and increased pain left leg COMPARISON: None. TECHNIQUE: CT scan of the pelvis and lower extremities performed with and without intravenous contra st using helical scanning technique with dynamic intravenous contrast injection. Images reviewed with lung, soft tissue, and bone windows. Reconstructed coronal and sagittal MPR images reviewed. All jeni ges stored on PACS. Advanced 3D imaging as volume-rendering, MIPs, SSD performed? yes All CT scanners at this facility use dose modulation, iterative reconstruction, and/or weight based d osing when appropriate to reduce radiation dose to as low as reasonably achievable (ALARA). [facility]: Dose Right [facility]: CareDose [facility]: Dose Right [facility]: Teradose 4D [facility]: navigaya CONTRAST TYPE AND DOSE: contrast/concentration: Isovue 350.00 mmol/ml; Total Contrast Delivered: 100 .0 ml; Total Saline Delivered: 100.0 ml RENAL FUNCTION: GFR > 60. LIMITATIONS: None. FINDINGS: NON-CONTRASTED IMAGING: No significant renal or bladder calcifications. No other significa nt organ calcifications. POST-CONTRAST IMAGING: VESSELS: Left SFA is occluded from just below the groin level to the popliteal artery which reconstit utes through collateral vessels. Right SFA is occluded at the mid thigh level to the popliteal arter y which reconstitutes through collateral vessels. Multilevel moderate-severe stenosis due to atheros clerotic plaque is present throughout both common and superficial femoral arteries proximally. No di ssection. AT, PT, and peroneal arteries appear patent bilaterally. BOWEL AND PERITONEAL CAVITY: No obstruction. No free fluid. Mild left inguinal and pelvic lymphadeno norberto. ABDOMINAL WALL: No masses. No hernias. BONY STRUCTURES: No significant or acute findings. 3-D IMAGING: Confirms the above findings. IMPRESSION: Left SFA is occluded from just below the groin level to the popliteal artery which recon stitutes through collateral vessels. Right SFA is occluded at the mid thigh level to the popliteal a rtery which reconstitutes through collateral vessels. Multilevel moderate-severe stenosis due to ath erosclerotic plaque is present throughout both common and superficial femoral arteries proximally. N o dissection. AT, PT, and peroneal arteries appear patent bilaterally. COMMENT: Results were called to the emergency room physician at 1745 hours. Results were confirmed and read back. TECHNICAL DOCUMENTATION: JOB ID: [id number] Quality ID # [id number]: Final reports with documentation of one or more dose reduction techniques (e.g., Au tomated exposure control, adjustment of the mA and/or kV according to patient size, use of iterative reconstruction technique) 2010 [employer]- All Rights Reserved Reading location - IP/workstation name: [email or web address]
--- NOTE | 2020-07-07 18:07 | RADIOLOGY REPORT (SQ) ---
EXAM DESCRIPTION: VENOUS UNILATERAL LOWER IMAGES COMPLETED DATE/TIME: 07/07/2020 5:58 pm REASON FOR STUDY: Pain left leg COMPARISON: None. TECHNIQUE: Dynamic and static butts scale and color images acquired of the left leg venous system. Se lected spectral images acquired with additional compression and augmentation maneuvers. The contralat eral common femoral vein and saphenofemoral junction were also imaged. Images stored on PACS. LIMITATIONS: None. FINDINGS: COMMON FEMORAL: Normal phasicity, compression and augmentation. No visualized echogenic ma terial on butts scale. No defects on color images. FEMORAL: Normal compression and augmentation. No visualized echogenic material on butts scale. No defe cts on color images. POPLITEAL: Normal compression, augmentation. No visualized echogenic material on butts scale. No defec ts on color images. CALF VESSELS: Normal compression, augmentation. No visualized echogenic material on butts scale. No de fects on color images. GSV and SSV: Normal compression, augmentation. No visualized echogenic material on butts scale. No def ects on color images. ANY DEEP VENOUS INSUFFICIENCY: Not evaluated. ANY EVIDENCE OF POPLITEAL CYST: No. OTHER: No other significant finding. CONTRALATERAL COMMON FEMORAL VEIN AND SAPHENOFEMORAL JUNCTION: Normal phasicity, compression and augmentation. No visualized echogenic material on butts scale. No de fects on color images. IMPRESSION: NO EVIDENCE OF DVT OR SVT IN THE LEFT LEG. TECHNICAL DOCUMENTATION: JOB ID: [id number] 2010 [employer]- All Rights Reserved Reading location - IP/workstation name: [email or web address]
[2020-07-07 18:27] LABS: ALBUMIN 3.7 g/dL (3.5-5.0); ALKALINE PHOSPHATASE 124 U/L (38-126); ANION GAP 11 (5-19); ASPARTATE AMINO TRANSFERASE 15 U/L (17-59); BILIRUBIN,DIRECT 0.1 mg/dL (0.0-0.4); BILIRUBIN,TOTAL 0.6 mg/dL (0.2-1.3); BLOOD UREA NITROGEN 18 mg/dL (7-20); CALCIUM 9.2 mg/dL (8.4-10.2); CARBON DIOXIDE 26 mmol/L (22-30); CHLORIDE 99 mmol/L (98-107); GLUCOSE 255 mg/dL (75-110); TOTAL PROTEIN 7.4 g/dL (6.3-8.2)
[2020-07-07] MEDS ORDERED: ACETAMINOPHEN 325 MG TABLET PO PRN (19:20)
[2020-07-07] MEDS ORDERED: DEXTROSE 50%-WATER 25 GM/50 ML DISP.SYRIN IV PRN ×2 (19:48)
[2020-07-07] MEDS ORDERED: DEXTROSE 40% GEL 15 GM TUBE PO PRN ×2 (19:48)
[2020-07-07] MEDS ORDERED: GLUCAGON,HUMAN RECOMB 1 MG INJ IM PRN (19:48)
--- NOTE | 2020-07-07 19:52 | PDOC CONSULTATION ---
Consultation Consult Date: 07/07/20 Provider Consulted: MARIE CLAYTON Consult reason:: left footnon healing surgical wound History of Present Illness Admission Date/PCP: 07/07/20 18:48 AMBAR WALLACE MD History of Present Illness: ELISA WHITFIELD is a 60 year old male with A history of left lower extremity pain. He had a amputation of the fifth toe approximately 3 weeks ago. He had his surgery performed at [facility]. Since then, he slow healing of the surgical wound, about 1/4" in diameter, serous drainage, and BID wound packing. He reports recent onset of pain of his leg which radiates to the thigh. He is diabetic, hypertensive and has some symptoms of peripheral vascular disease. Blood sugar has been in the 300s and his pain has been severe enough to keep him awake at night. CTA of both lower extremity has been done and reveals bilateral SFA occlusion with reconstitution below the knee through collaterals. Past Medical History Cardiac Medical History: Reports: Coronary Artery Disease - History of 2 stents and CABG x 3 in 2018, Hyperlipidema, Hypertension Pulmonary Medical History: Denies: Asthma, Bronchitis, Chronic Obstructive Pulmonary Disease (COPD), Intubation, Pneumonia, Respiratory Failure, Sleep Apnea, Tuberculosis Neurological Medical History: Denies: Migraine, Seizures Endocrine Medical History: Reports: Diabetes Mellitus Type 2 Psychiatric Medical History: Denies: Depression Past Surgical History Past Surgical History: Reports: Cardiac Catheterization - w/ stents, Coronary Artery Bypass Graft Social History Smoking Status: Current Some Day Smoker Electronic Cigarette use?: No Frequency of Alcohol Use: Occasional Hx Recreational Drug Use: No Drugs: None Hx Prescription Drug Abuse: No Family History Family History: CAD, DM Parental Family History Reviewed: Yes - Diabetes Children Family History Reviewed: No Sibling(s) Family History Reviewed.: No Medication/Allergy Home Medications: Aspirin [Ecotrin 81 mg EC Tablet] 81 mg PO DAILY tabec 08/28/16 Clopidogrel Bisulfate [Plavix 75 mg Tablet] 75 mg PO DAILY tablet 08/28/16 Metformin HCl [Glucophage 500 mg Tablet] 1,000 mg PO BID #60 tablet 03/10/18 Atorvastatin Calcium [Lipitor 40 mg Tablet] 40 mg PO QHS 06/06/20 Acetaminophen [Tylenol 325 mg Tablet] 650 mg PO Q4HP PRN tablet 06/15/20 Amlodipine Besylate [Norvasc 5 mg Tablet] 5 mg PO QHS #30 tablet 06/15/20 Amoxicillin/Potassium Clav [Augmentin 875-125 Tablet] 1 tab PO BID #20 tab 06/15/20 Lisinopril [Prinivil 10 mg Tablet] 40 mg PO DAILY #120 tablet 06/15/20 Metoprolol Tartrate [Lopressor 50 mg Tablet] 50 mg PO Q12 #60 tablet 06/15/20 Oxycodone HCl/Acetaminophen [Percocet 5-325 mg Tablet] 2 tab PO Q4HP PRN #12 tablet 06/15/20 Allergies/Adverse Reactions: No Known Allergies Allergy (Verified 07/07/20 14:35) Physical Exam Vital Signs: Temp Pulse Resp BP Pulse Ox 98.8 F 118 H 16 110/73 98 07/07/20 14:34 07/07/20 14:34 07/07/20 14:34 07/07/20 14:34 07/07/20 14:34 Intake & Output 07/06/20 07/07/20 07/08/20 06:59 06:59 06:59 Weight 82.6 kg General appearance: PRESENT: no acute distress, cooperative, thin, well-nourished Eye exam: PRESENT: conjunctival injection, EOMI Teeth exam: PRESENT: poor dentation Neck exam: PRESENT: full ROM Respiratory exam: PRESENT: clear to auscultation carole Cardiovascular exam: PRESENT: RRR Vascular exam: PRESENT: normal capillary refill, other - Both lower extremities are warm, and viable GI/Abdominal exam: PRESENT: normal bowel sounds, soft Rectal exam: PRESENT: deferred Gentrourinary exam: PRESENT: other - For Extremities exam: PRESENT: full ROM Musculoskeletal exam: PRESENT: full ROM Skin exam: PRESENT: warm, other - Left foot = approximately 1/4" in diameter nonhealing wound, with serous drainage, no odor at the surgery site of the small toe amputation Results Laboratory Results: 07/07/20 14:55 07/07/20 17:55 07/07/20 07/07/20 07/07/20 14:55 14:55 14:55 WBC 10.6 H RBC 4.04 L Hgb 12.0 L Hct 36.2 L MCV 90 D MCH 29.7 MCHC 33.2 RDW 14.2 H Plt Count 305 Seg Neutrophils % 71.8 Sodium 137.8 Potassium 4.1 Chloride 100 Carbon Dioxide 26 Anion Gap 12 BUN 17 Creatinine 1.03 Est GFR ( Amer) > 60 Glucose 252 H Lactic Acid 1.3 Calcium 9.6 Total Bilirubin 0.6 AST 14 L Alkaline Phosphatase 134 H C-Reactive Protein 161.2 H Total Protein 7.6 Albumin 3.8 07/07/20 17:55 WBC RBC Hgb Hct MCV MCH MCHC RDW Plt Count Seg Neutrophils % Sodium 135.9 L Potassium 4.0 Chloride 99 Carbon Dioxide 26 Anion Gap 11 BUN 18 Creatinine 1.00 Est GFR ( Amer) > 60 Glucose 255 H Lactic Acid Calcium 9.2 Total Bilirubin 0.6 AST 15 L Alkaline Phosphatase 124 C-Reactive Protein Total Protein 7.4 Albumin 3.7 Impressions: Venous Doppler Study 07/07/20 15:59 IMPRESSION: NO EVIDENCE OF DVT OR SVT IN THE LEFT LEG. Lower Extremity CTA 07/07/20 16:00 IMPRESSION: Left SFA is occluded from just below the groin level to the popliteal artery which reconstitutes through collateral vessels. Right SFA is occluded at the mid thigh level to the popliteal artery which reconstitutes through collateral vessels. Multilevel moderate-severe stenosis due to atherosclerotic plaque is present throughout both common and superficial femoral arteries proximally. No dissection. AT, PT, and peroneal arteries appear patent bilaterally. Assessment & Plan - Diagnosis (2) Type 2 diabetes mellitus Qualifiers: Diabetes mellitus manager long term care insulin use: with manager long term care use Diabetes mellitus complication status: with circulatory complication Diabetes mellitus complication detail: with other circulatory complications Qualified Code(s): E11.59 - Type 2 diabetes mellitus with other circulatory complications; Z79.4 - snf (current) use of insulin Is this a current diagnosis for this admission?: Yes - Plan Summary Plan Summary: Assessment: 2 weeks postop following resection of left fifth toe in a patient with diabetic vasculopathy and neuropathy Patient complaining of pain of the left lower extremity Physical appearance of the wound reveals a quarter of an inch in diameter nonhealing area of the left fifth toe amputation surgical site However, the wound is clean in appearance, no odor, no redness, no purulent drainage Current wound therapy is packing twice a day CTA of both lower extremities revealed occlusion of the SFA with popliteal artery reconstitution through collaterals Plan: Patient to continue twice a day left foot wound packing as instructed Follow-up with Dr. Riddle in 2 to 3 weeks In addition, the patient would benefit from vascular surgery consultation to try to perform a bilateral femoropopliteal vascular bypass to bring more blood flow to lower extremities and improve the healing No acute general surgery issues notified of this patient, patient can be safely discharged to home.
--- NOTE | 2020-07-07 20:03 | PDOC H&P ---
History of Present Illness Admission Date/PCP: 07/07/20 18:48 AMBAR WALLACE MD Patient complains of: Discomfort in the left foot surgical site History of Present Illness: ELISA WHITFIELD is a 60 year old male who was admitted to [facility] approximately 1 month ago. He had osteomyelitis in the left fifth toe. He underwent surgical amputation of the left fifth toe with the distal end of the left fifth metatarsal. His wound has not healed. He was having increased pain. He presented to the emergency department. His white blood cell count was only 10.6 but his C-reactive protein and sed rate were markedly elevated. His sed rate was 104 and the CRP was 161.2. Serum chemistries revealed glucose of 252 and angiogram of the leg shows that the left superficial femoral artery is occluded from just under the groin to the popliteal area. It then reconstitutes. In addition the patient's glucose was 254. I am going to admit the patient for overnight observation. A culture was obtained. He will receive aggressive wound care but more importantly I will increase his atorvastatin to 80 mg and continue his Plavix and baby aspirin. We will refer him to vascular surgery. Preferably we will send him to the same facility that he had his cardiac stents placed although an appropriate referral would be to and the vascular surgeon who can perform atherectomy or femoropopliteal bypass I will also review his diabetes regimen. Good control of his diabetes will help healing additionally although the primary causes poor circulation. Past Medical History Cardiac Medical History: Reports: Coronary Artery Disease - History of 2 stents and CABG x 3 in 2018, Hyperlipidema, Hypertension, Peripheral Vascular Disease Pulmonary Medical History: Denies: Asthma, Bronchitis, Chronic Obstructive Pulmonary Disease (COPD), Intubation, Pneumonia, Respiratory Failure, Sleep Apnea, Tuberculosis Neurological Medical History: Denies: Migraine, Seizures Endocrine Medical History: Reports: Diabetes Mellitus Type 2 Malignancy Medical History: Reports: None GI Medical History: Reports: None Psychiatric Medical History: Denies: Depression Hematology: Reports: None Infectious History Note: Osteomyelitis of the left fifth toe. Past Surgical History Past Surgical History: Reports: Cardiac Catheterization - w/ stents, Coronary Artery Bypass Graft, Orthopedic Surgery Social History Information Source: Patient, [facility] Records Lives with: Spouse/Significant other Smoking Status: Current Some Day Smoker Electronic Cigarette use?: No Frequency of Alcohol Use: Occasional Hx Recreational Drug Use: No Drugs: None Hx Prescription Drug Abuse: No - Advance Directive Resuscitation Status: Full Code Surrogate healthcare decision maker:: The patient's Family History Family History: CAD, DM Parental Family History Reviewed: Yes Children Family History Reviewed: Yes Sibling(s) Family History Reviewed.: Yes Medication/Allergy Home Medications: Aspirin [Ecotrin 81 mg EC Tablet] 81 mg PO DAILY tabec 08/28/16 Clopidogrel Bisulfate [Plavix 75 mg Tablet] 75 mg PO DAILY tablet 08/28/16 Metformin HCl [Glucophage 500 mg Tablet] 1,000 mg PO BID #60 tablet 03/10/18 Atorvastatin Calcium [Lipitor 40 mg Tablet] 40 mg PO QHS 06/06/20 Acetaminophen [Tylenol 325 mg Tablet] 650 mg PO Q4HP PRN tablet 06/15/20 Amlodipine Besylate [Norvasc 5 mg Tablet] 5 mg PO QHS #30 tablet 06/15/20 Amoxicillin/Potassium Clav [Augmentin 875-125 Tablet] 1 tab PO BID #20 tab 06/15/20 Lisinopril [Prinivil 10 mg Tablet] 40 mg PO DAILY #120 tablet 06/15/20 Metoprolol Tartrate [Lopressor 50 mg Tablet] 50 mg PO Q12 #60 tablet 06/15/20 Oxycodone HCl/Acetaminophen [Percocet 5-325 mg Tablet] 2 tab PO Q4HP PRN #12 tablet 06/15/20 Allergies/Adverse Reactions: No Known Allergies Allergy (Verified 07/07/20 14:35) Review of Systems All systems: reviewed and no additional remarkable complaints except as stated Musculoskeletal: PRESENT: deformity - Left fifth toe amputation, other - Pain in left foot Physical Exam Vital Signs: Temp Pulse Resp BP Pulse Ox 98.8 F 118 H 16 110/73 98 07/07/20 14:34 07/07/20 14:34 07/07/20 14:34 07/07/20 14:34 07/07/20 14:34 Intake & Output 07/06/20 07/07/20 07/08/20 06:59 06:59 06:59 Weight 82.6 kg General appearance: PRESENT: cooperative, mild distress, well-developed, well-no urished Head exam: PRESENT: atraumatic, normocephalic Eye exam: PRESENT: conjunctiva pink, EOMI, PERRLA, other - Dirty sclera. Betancourt Victor Manuel rings bilaterally. Ear exam: PRESENT: normal external ear exam. ABSENT: bleeding, drainage Mouth exam: PRESENT: dry mucosa, tongue midline Teeth exam: PRESENT: poor dentation Neck exam: PRESENT: full ROM. ABSENT: carotid bruit, JVD, lymphadenopathy Respiratory exam: PRESENT: clear to auscultation carole, symmetrical, unlabored. ABSENT: accessory muscle use, prolonged expiratory phas, rales, rhonchi, tachypnea, wheezes Cardiovascular exam: PRESENT: RRR, +S1, +S2. ABSENT: bradycardia, diastolic murmur, irregular rhythm, systolic murmur, tachycardia GI/Abdominal exam: PRESENT: normal bowel sounds, soft. ABSENT: distended, g uarding, tenderness Rectal exam: PRESENT: deferred Gentrourinary exam: ABSENT: indwelling catheter Extremities exam: ABSENT: pedal edema Musculoskeletal exam: PRESENT: deformity - Left fifth toe amputation, normal inspection - Except amputation Neurological exam: PRESENT: alert, awake, oriented to person, oriented to place, oriented to time, oriented to situation. ABSENT: altered Psychiatric exam: PRESENT: appropriate affect. ABSENT: agitated, anxious Focused psych exam: ABSENT: delusional, paranoid, restlessness Skin exam: PRESENT: dry, warm, other - Small opening at the amputation site. A BSENT: rash Results Laboratory Results: 07/07/20 14:55 07/07/20 17:55 07/07/20 07/07/20 07/07/20 14:55 14:55 14:55 WBC 10.6 H RBC 4.04 L Hgb 12.0 L Hct 36.2 L MCV 90 D MCH 29.7 MCHC 33.2 RDW 14.2 H Plt Count 305 Seg Neutrophils % 71.8 Sodium 137.8 Potassium 4.1 Chloride 100 Carbon Dioxide 26 Anion Gap 12 BUN 17 Creatinine 1.03 Est GFR ( Amer) > 60 Glucose 252 H Lactic Acid 1.3 Calcium 9.6 Total Bilirubin 0.6 AST 14 L Alkaline Phosphatase 134 H C-Reactive Protein 161.2 H Total Protein 7.6 Albumin 3.8 07/07/20 17:55 WBC RBC Hgb Hct MCV MCH MCHC RDW Plt Count Seg Neutrophils % Sodium 135.9 L Potassium 4.0 Chloride 99 Carbon Dioxide 26 Anion Gap 11 BUN 18 Creatinine 1.00 Est GFR ( Amer) > 60 Glucose 255 H Lactic Acid Calcium 9.2 Total Bilirubin 0.6 AST 15 L Alkaline Phosphatase 124 C-Reactive Protein Total Protein 7.4 Albumin 3.7 Impressions: Venous Doppler Study 07/07/20 15:59 IMPRESSION: NO EVIDENCE OF DVT OR SVT IN THE LEFT LEG. Lower Extremity CTA 07/07/20 16:00 IMPRESSION: Left SFA is occluded from just below the groin level to the popliteal artery which reconstitutes through collateral vessels. Right SFA is o ccluded at the mid thigh level to the popliteal artery which reconstitutes through collateral vessels. Multilevel moderate-severe stenosis due to atherosclerotic plaque is present throughout both common and superficial femoral arteries proximally. No dissection. AT, PT, and peroneal arteries appear patent bilaterally. Assessment and Plan - Diagnosis (1) Diabetic infection of left foot Is this a current diagnosis for this admission?: Yes Plan: I remove the packing. There is a small amount of purulent drainage. A culture was obtained. There was no foul odor. We will clean the wound with saline and then place iodoform gauze tonight. We will repack it in the morning before d ischarge. No surgical debridement is needed. His sed rate was 104 with a C- reactive protein of 161.2. This is concerning for possible osteomyelitis. There was no obvious bony destruction at the surgical end of the fifth metatarsal. He is afebrile. His lactic acid is normal. I will repeat the CRP and sed rate in the morning. I expect there will be going down. Await the culture results. (2) Hyperglycemia due to type 2 diabetes mellitus Qualifiers: Diabetes mellitus oil heaterman insulin use: without assisted use Qualified Code(s): E11.65 - Type 2 diabetes mellitus with hyperglycemia Is this a current diagnosis for this admission?: Yes Plan: Glucose on admission was 254. During his May admission his hemoglobin A1c was 5.8. The glucose could be up due to infection. We will continue the patient's metformin 1 g twice a day and place him on a controlled carbohydrate diet. Accu-Cheks before meals and at bedtime with sliding scale coverage (3) Hypertension Qualifiers: Hypertension type: essential hypertension Qualified Code(s): I10 - Essential (primary) hypertension Is this a current diagnosis for this admission?: Yes Plan: Continue amlodipine, lisinopril and metoprolol. (4) CAD (coronary artery disease) Qualifiers: Coronary Disease-Associated Artery/Lesion type: [place] artery [place] vs. transplanted heart: [place] heart Associated angina: without angina Qualified Code(s): I25.10 - Atherosclerotic heart disease of [place] coronary artery without angina pectoris Is this a current diagnosis for this admission?: Yes Plan: The patient has had bypass surgery in 2018. He has had 2 stents placed as well. He will continue on aspirin 81 mg daily as well as Plavix 75 mg daily. I am increasing his atorvastatin to 80 mg daily and his metoprolol 50 mg twice daily will stay unchanged (5) Dyslipidemia Is this a current diagnosis for this admission?: Yes Plan: Atorvastatin increased to 80 mg daily (6) Peripheral arterial occlusive disease Is this a current diagnosis for this admission?: Yes Plan: The patient needs referral to vascular surgery. He will need femoropopliteal bypass due to the extensive plaque present in the left superficial femoral artery. He likely has similar disease in the right leg. - Time Time Spent with patient: 35 or more minutes Smoking Cessation Education: 3 to 10 minutes Medications reviewed and adjusted accordingly: Yes Anticipated Discharge Disposition: Home, Self Care Anticipated Discharge Timeframe: within 24 hours
[2020-07-07] MEDS ORDERED: AMLODIPINE BESYLATE 5 MG TABLET PO SCH (22:00)
[2020-07-07] MEDS ORDERED: ASPIRIN 81 MG TABLET, ENT COATED PO SCH (22:00)
[2020-07-07] MEDS ORDERED: ATORVASTATIN CALCIUM 80 MG TABLET PO SCH (22:00)
[2020-07-07] MEDS: RINGERS SOLUTION,LACTATED 1,000 ML IV PRN (22:03)
[2020-07-07] MEDS: HYDROMORPHONE HCL INJ/PF 2 MG/ML AMPULE IV PRN (22:04)
[2020-07-07] MEDS: METOPROLOL TARTRATE 50 MG TABLET PO SCH (22:05)
[2020-07-07] MEDS: INSULIN REG, HUMAN 100 UNIT/ML 3 ML VIAL (PYX) SUBCUT SCH (22:05)
[2020-07-07] MEDS: HEPARIN SOD (PORCINE) 5,000 UNIT/ML 1 ML VIAL SUBCUT SCH (22:06)
[2020-07-08] MEDS: HEPARIN SOD (PORCINE) 5,000 UNIT/ML 1 ML VIAL SUBCUT SCH ×2 (05:34→13:12)
[2020-07-08 05:48] LABS: ABSOLUTE BASOPHILS # (AUTO) 0.1 10^3/uL (0.0-0.2); ABSOLUTE EOSINOPHILS # (AUTO) 0.1 10^3/uL (0.0-0.6); ABSOLUTE LYMPHOCYTES (AUTO) 1.5 10^3/uL (0.5-4.7); ABSOLUTE MONOCYTES (AUTO) 0.6 10^3/uL (0.1-1.4); ABSOLUTE NEUT (AUTO) 6.6 10^3/uL (1.7-8.2); BASOPHILS % (AUTO) 0.7 % (0-2); EOSINOPHILS % (AUTO) 0.9 % (0-6); HEMATOCRIT 33.9 % (37.9-51.0); HEMOGLOBIN 11.3 g/dL (13.5-17.0); LYMPHOCYTES % (AUTO) 16.9 % (13-45); MEAN CORPUSCULAR HEMOGLOBIN 29.8 pg (27.0-33.4); MEAN CORPUSCULAR HGB CONC 33.4 g/dL (32.0-36.0); MEAN CORPUSCULAR VOLUME 89 fl (80-97); PLATELET COUNT 252 10^3/uL (150-450); RED BLOOD COUNT 3.79 10^6/uL (4.35-5.55); RED CELL DISTRIBUTION WIDTH 14.2 % (11.5-14.0); SEGMENTED NEUTROPHILS % (AUTO) 74.5 % (42-78); TOTAL CELLS COUNTED % (AUTO) 100 %; WHITE BLOOD COUNT 8.9 10^3/uL (4.0-10.5)
[2020-07-08] MEDS: HYDROMORPHONE HCL INJ/PF 2 MG/ML AMPULE IV PRN ×3 (06:06→16:15)
[2020-07-08 06:18] LABS: ANION GAP 10 (5-19); BLOOD UREA NITROGEN 17 mg/dL (7-20); CALCIUM 9.3 mg/dL (8.4-10.2); CARBON DIOXIDE 30 mmol/L (22-30); CHLORIDE 100 mmol/L (98-107); GLUCOSE 174 mg/dL (75-110); POTASSIUM 4.2 mmol/L (3.6-5.0)
[2020-07-08 06:32] LABS: C-REACTIVE PROTEIN 174.2 mg/L (<10.0)
[2020-07-08 06:44] LABS: ERYTHROCYTE SEDIMENTATION RATE 101 mm/hr (0-20)
[2020-07-08] MEDS: METFORMIN HCL 500 MG TABLET PO SCH ×2 (09:06→16:11)
[2020-07-08] MEDS: INSULIN REG, HUMAN 100 UNIT/ML 3 ML VIAL (PYX) SUBCUT SCH ×3 (09:06→16:11)
[2020-07-08] MEDS: METOPROLOL TARTRATE 50 MG TABLET PO SCH (09:06)
[2020-07-08] MEDS: RINGERS SOLUTION,LACTATED 1,000 ML IV PRN (09:07)
[2020-07-08] MEDS ORDERED: LISINOPRIL 10 MG TABLET PO SCH ×2 (10:00→18:00)
[2020-07-08] MEDS ORDERED: CLOPIDOGREL BISULFATE 75 MG TABLET PO SCH (10:00)
--- NOTE | 2020-07-08 11:21 | RADIOLOGY REPORT (SQ) ---
EXAM DESCRIPTION: FOOT LEFT COMPLETE IMAGES COMPLETED DATE/TIME: 07/07/2020 3:09 pm REASON FOR STUDY: L foot pain s/p toe removal 3 weeks ago COMPARISON: 06/06/2020. NUMBER OF VIEWS: Three views of the left foot. LIMITATIONS: None. FINDINGS: Initial images were labeled "Right" . This was in error. New images are annotated "Left" . The patient has undergone amputation of the 5th toe at the level of the MTP joint. No fracture or renny ne destruction in the visualized bones. No suggestion of gas in the soft tissues. OTHER: No other significant finding. IMPRESSION: Postoperative changes. TECHNICAL DOCUMENTATION: JOB ID: [id number] Reading location - IP/workstation name: [email or web address]
[2020-07-08] MEDS ORDERED: HYDRALAZINE HCL INJ/PF 20 MG/1 ML SDV IV ONE (15:40)
--- NOTE | 2020-07-08 15:54 | PDOC DISCHARGE SUMMARY ---
Impression - Admit/DC Date/PCP Admission Date/Primary Care Provider: 07/07/20 18:48 AMBAR WALLACE MD Discharge Date: 07/08/20 - Discharge Diagnosis (1) Diabetic infection of left foot Is this a current diagnosis for this admission?: Yes (2) Hyperglycemia due to type 2 diabetes mellitus Is this a current diagnosis for this admission?: Yes (3) Hypertension Is this a current diagnosis for this admission?: Yes (4) CAD (coronary artery disease) Is this a current diagnosis for this admission?: Yes (5) Dyslipidemia Is this a current diagnosis for this admission?: Yes (6) Peripheral arterial occlusive disease Is this a current diagnosis for this admission?: Yes - Additional Information Resuscitation Status: Full Code Discharge Diet: Cardiac, Diabetic Discharge Activity: Activity As Tolerated, Balance Activity w/Rest Referrals: AMBAR WALLACE MD [Primary Care Provider] - AURA SON MD [ACTIVE STAFF] - 07/17/20 1:00 pm Prescriptions: Levofloxacin [Levaquin 500 mg Tablet] 500 mg PO DAILY #10 tablet Atorvastatin Calcium [Lipitor 80 mg Tablet] 80 mg PO QHS #30 tablet Amlodipine Besylate [Norvasc 5 mg Tablet] 5 mg PO BID #60 tablet Home Medications: Aspirin [Ecotrin 81 mg EC Tablet] 81 mg PO DAILY tabec 08/28/16 Clopidogrel Bisulfate [Plavix 75 mg Tablet] 75 mg PO DAILY tablet 08/28/16 Atorvastatin Calcium [Lipitor 40 mg Tablet] 40 mg PO QHS 06/06/20 Lisinopril [Prinivil 10 mg Tablet] 40 mg PO DAILY #120 tablet 06/15/20 Metoprolol Tartrate [Lopressor 50 mg Tablet] 50 mg PO Q12 #60 tablet 06/15/20 Acetaminophen [Tylenol 325 mg Tablet] 650 mg PO Q4HP PRN tablet 07/08/20 Amlodipine Besylate [Norvasc 5 mg Tablet] 5 mg PO BID #60 tablet 07/08/20 Aspirin [Ecotrin 81 mg EC Tablet] 81 mg PO QHS tabec 07/08/20 Atorvastatin Calcium [Lipitor 80 mg Tablet] 80 mg PO QHS #30 tablet 07/08/20 Clopidogrel Bisulfate [Plavix 75 mg Tablet] 75 mg PO DAILY tablet 07/08/20 Gabapentin [Neurontin 300 mg Capsule] 300 mg PO QHS 07/08/20 Levofloxacin [Levaquin 500 mg Tablet] 500 mg PO DAILY #10 tablet 07/08/20 Metformin HCl [Glucophage 500 mg Tablet] 1,000 mg PO QAM 07/08/20 Metformin HCl [Glucophage 500 mg Tablet] 500 mg PO QHS 07/08/20 Metoprolol Tartrate [Lopressor 50 mg Tablet] 50 mg PO Q12 tablet 07/08/20 History of Present Illiness History of Present Illness: ELISA WHITFIELD is a 60 year old male who was admitted to [facility] approximately 1 month ago. He had osteomyelitis in the left fifth toe. He underwent surgical amputation of the left fifth toe with the distal end of the left fifth metatarsal. His wound has not healed. He was having increased pain. He presented to the emergency department. His white blood cell count was only 10.6 but his C-reactive protein and sed rate were markedly elevated. His sed rate was 104 and the CRP was 161.2. Serum chemistries revealed glucose of 252 and angiogram of the leg shows that the left superficial femoral artery is occluded from just under the groin to the popliteal area. It then reconstitutes. In addition the patient's glucose was 254. I am going to admit the patient for overnight observation. A culture was obtained. He will receive aggressive wound care but more importantly I will increase his atorvastatin to 80 mg and continue his Plavix and baby aspirin. We will refer him to vascular surgery. Preferably we will send him to the same facility that he had his cardiac stents placed although an appropriate referral would be to and the vascular surgeon who can perform atherectomy or femoropopliteal bypass I will also review his diabetes regimen. Good control of his diabetes will help healing additionally although the primary causes poor circulation. Hospital Course Hospital Course: unremarkable overnight stay Physical Exam Vital Signs: Temp Pulse Resp BP Pulse Ox 98.0 F 77 16 180/80 H 99 07/08/20 11:08 07/08/20 11:08 07/08/20 11:08 07/08/20 11:08 07/08/20 11:08 Intake & Output 07/07/20 07/08/20 07/09/20 06:59 06:59 06:59 Intake Total 1120 Output Total 675 625 Balance -675 495 Weight 82 kg General appearance: PRESENT: no acute distress Respiratory exam: PRESENT: clear to auscultation carole, symmetrical, unlabored. ABSENT: rales, rhonchi, tachypnea, wheezes Cardiovascular exam: PRESENT: RRR, +S1, +S2 GI/Abdominal exam: PRESENT: normal bowel sounds, soft. ABSENT: tenderness Results Laboratory Results: WBC 8.9 10^3/uL (4.0-10.5) 07/08/20 04:28 RBC 3.79 10^6/uL (4.35-5.55) L 07/08/20 04:28 Hgb 11.3 g/dL (13.5-17.0) L 07/08/20 04:28 Hct 33.9 % (37.9-51.0) L 07/08/20 04:28 MCV 89 fl (80-97) 07/08/20 04:28 MCH 29.8 pg (27.0-33.4) 07/08/20 04:28 MCHC 33.4 g/dL (32.0-36.0) 07/08/20 04:28 RDW 14.2 % (11.5-14.0) H 07/08/20 04:28 Plt Count 252 10^3/uL (150-450) 07/08/20 04:28 Lymph % (Auto) 16.9 % (13-45) 07/08/20 04:28 Bradley % (Auto) 7.0 % (3-13) 07/08/20 04:28 Eos % (Auto) 0.9 % (0-6) 07/08/20 04:28 Baso % (Auto) 0.7 % (0-2) 07/08/20 04:28 Absolute Neuts (auto) 6.6 10^3/uL (1.7-8.2) 07/08/20 04:28 Absolute Lymphs (auto) 1.5 10^3/uL (0.5-4.7) 07/08/20 04:28 Absolute Monos (auto) 0.6 10^3/uL (0.1-1.4) 07/08/20 04:28 Absolute Eos (auto) 0.1 10^3/uL (0.0-0.6) 07/08/20 04:28 Absolute Basos (auto) 0.1 10^3/uL (0.0-0.2) 07/08/20 04:28 Seg Neutrophils % 74.5 % (42-78) 07/08/20 04:28 ESR 101 mm/hr (0-20) H 07/08/20 04:28 Sodium 139.8 mmol/L (137-145) 07/08/20 04:28 Potassium 4.2 mmol/L (3.6-5.0) 07/08/20 04:28 Chloride 100 mmol/L (98-107) 07/08/20 04:28 Carbon Dioxide 30 mmol/L (22-30) 07/08/20 04:28 Anion Gap 10 (5-19) 07/08/20 04:28 BUN 17 mg/dL (7-20) 07/08/20 04:28 Creatinine 1.02 mg/dL (0.52-1.25) 07/08/20 04:28 Est GFR ( Amer) > 60 (>60) 07/08/20 04:28 Est GFR (MDRD) Non-Af > 60 (>60) 07/08/20 04:28 Glucose 174 mg/dL (75-110) H 07/08/20 04:28 POC Glucose 212 mg/dL (70-110) H 07/08/20 15:30 Lactic Acid 1.3 mmol/L (0.7-2.1) 07/07/20 14:55 Calcium 9.3 mg/dL (8.4-10.2) 07/08/20 04:28 Magnesium 1.5 mg/dL (1.6-2.3) L 07/08/20 04:28 Total Bilirubin 0.6 mg/dL (0.2-1.3) 07/07/20 17:55 Direct Bilirubin 0.1 mg/dL (0.0-0.4) 07/07/20 17:55 Neonat Total Bilirubin Not Reportable 07/07/20 17:55 Neonat Direct Bilirubin Not Reportable 07/07/20 17:55 Neonat Indirect Bili Not Reportable 07/07/20 17:55 AST 15 U/L (17-59) L 07/07/20 17:55 ALT 10 U/L (<50) 07/07/20 17:55 Alkaline Phosphatase 124 U/L (38-126) 07/07/20 17:55 C-Reactive Protein 174.2 mg/L (<10.0) H 07/08/20 04:28 Total Protein 7.4 g/dL (6.3-8.2) 07/07/20 17:55 Albumin 3.7 g/dL (3.5-5.0) 07/07/20 17:55 Impressions: Foot X-Ray 07/07/20 14:37 IMPRESSION: Postoperative changes. Venous Doppler Study 07/07/20 15:59 IMPRESSION: NO EVIDENCE OF DVT OR SVT IN THE LEFT LEG. Lower Extremity CTA 07/07/20 16:00 IMPRESSION: Left SFA is occluded from just below the groin level to the popliteal artery which reconstitutes through collateral vessels. Right SFA is occluded at the mid thigh level to the popliteal artery which reconstitutes through collateral vessels. Multilevel moderate-severe stenosis due to at herosclerotic plaque is present throughout both common and superficial femoral arteries proximally. No dissection. AT, PT, and peroneal arteries appear patent bilaterally. Plan Health Concerns: poor healing with newly discovered PAD Plan of Treatment: complete antibiotics. consult with Vascular surgery Goals: improve leg circulation Time Spent: Greater than 30 Minutes Stroke Is this a Stroke Patient?: No Acute Heart Failure - Is this a Heart Failure Patient?: No
[2020-07-08] MEDS ORDERED: HYDROMORPHONE HCL INJ/PF 2 MG/ML AMPULE IV ONE (16:45)
[2020-07-08 17:13] VITALS: BP 172/84
[2020-07-08] MEDS ORDERED: AMLODIPINE BESYLATE 5 MG TABLET PO SCH (18:00)
== END 2020-07-08 18:29 | disposition home health service (06) ==
LOC: ER 14:21 → INTOOBSV 18:48 → EH 18:48 → 4N 20:35
PROVIDERS: ADMIT Hospitalist; ATTEND Hospitalist
DX: E11.628 Type 2 diabetes mellitus with other skin complications (principal); T81.49XA Infection following a procedure, other surgical site, initial encounter; E11.65 Type 2 diabetes mellitus with hyperglycemia; E11.59 Type 2 diabetes mellitus with other circulatory complications; I77.9 Disorder of arteries and arterioles, unspecified; E11.40 Type 2 diabetes mellitus with diabetic neuropathy, unspecified; I10 Essential (primary) hypertension; I25.10 Atherosclerotic heart disease of native coronary artery without angina pectoris; E78.5 Hyperlipidemia, unspecified; R00.0 Tachycardia, unspecified; F17.200 Nicotine dependence, unspecified, uncomplicated; Z79.82 Long term (current) use of aspirin; Z79.899 Other long term (current) drug therapy; Z79.02 Long term (current) use of antithrombotics/antiplatelets; Z95.5 Presence of coronary angioplasty implant and graft; Z95.1 Presence of aortocoronary bypass graft; Z79.4 Long term (current) use of insulin
CPT/HCPCS: 96376; 99285; 96375; 96365; 36415 ×2; 87040; 87070 ×2; 87205; 82962 ×2; 83605; 83735; 85025 ×2; 85652 ×2; 87075; 86140 ×2; 87077; 80048; 80053; 87186; 93971; 73630; 73706; G0378 ×3; J0360; J3490 ×8; J1170 ×2; J1815 ×2; J7120 ×2; J2543

== ENCOUNTER → 2020-08-01 | Outpatient (CLI) | payer MEDICAID | LOC: OD 07:23 | PROVIDERS: ATTEND Family Medicine Geriatric Medicine | DX: E11.21 Type 2 diabetes mellitus with diabetic nephropathy (principal); Z79.899 Other long term (current) drug therapy | CPT/HCPCS: 36415; 83036 ==

== ENCOUNTER → 2020-08-20 | Outpatient (CLI) | payer MEDICAID ==
[2020-08-20 08:21] LABS: ABSOLUTE BASOPHILS # (AUTO) 0.1 10^3/uL (0.0-0.2); ABSOLUTE EOSINOPHILS # (AUTO) 0.3 10^3/uL (0.0-0.6); ABSOLUTE LYMPHOCYTES (AUTO) 2.5 10^3/uL (0.5-4.7); ABSOLUTE MONOCYTES (AUTO) 0.4 10^3/uL (0.1-1.4); ABSOLUTE NEUT (AUTO) 2.6 10^3/uL (1.7-8.2); BASOPHILS % (AUTO) 1.5 % (0-2); EOSINOPHILS % (AUTO) 4.5 % (0-6); HEMATOCRIT 37.5 % (37.9-51.0); HEMOGLOBIN 12.5 g/dL (13.5-17.0); LYMPHOCYTES % (AUTO) 43.6 % (13-45); MEAN CORPUSCULAR HEMOGLOBIN 29.3 pg (27.0-33.4); MEAN CORPUSCULAR HGB CONC 33.4 g/dL (32.0-36.0); MEAN CORPUSCULAR VOLUME 88 fl (80-97); MONOCYTES % (AUTO) 6.2 % (3-13); PLATELET COUNT 358 10^3/uL (150-450); RED BLOOD COUNT 4.28 10^6/uL (4.35-5.55); RED CELL DISTRIBUTION WIDTH 15.4 % (11.5-14.0); SEGMENTED NEUTROPHILS % (AUTO) 44.2 % (42-78); TOTAL CELLS COUNTED % (AUTO) 100 %; WHITE BLOOD COUNT 5.8 10^3/uL (4.0-10.5)
[2020-08-20 08:49] LABS: ALBUMIN 3.9 g/dL (3.5-5.0); ALKALINE PHOSPHATASE 115 U/L (38-126); ANION GAP 14 (5-19); ASPARTATE AMINO TRANSFERASE 15 U/L (17-59); BILIRUBIN,DIRECT 0.3 mg/dL (0.0-0.4); BILIRUBIN,TOTAL 0.4 mg/dL (0.2-1.3); BLOOD UREA NITROGEN 16 mg/dL (7-20); C-REACTIVE PROTEIN 12.4 mg/L (<10.0); CALCIUM 9.8 mg/dL (8.4-10.2); CARBON DIOXIDE 22 mmol/L (22-30); CHLORIDE 106 mmol/L (98-107); GLUCOSE 133 mg/dL (75-110); POTASSIUM 4.8 mmol/L (3.6-5.0); TOTAL PROTEIN 7.3 g/dL (6.3-8.2)
--- NOTE | 2020-08-20 08:54 | RADIOLOGY REPORT (SQ) ---
EXAM DESCRIPTION: CHEST PA/LATERAL IMAGES COMPLETED DATE/TIME: 08/20/2020 7:56 am REASON FOR STUDY: PNEUMOTHORAX, UNSPECIFIED COMPARISON: 12/05/2019 EXAM PARAMETERS: NUMBER OF VIEWS: two views TECHNIQUE: Digital Frontal and Lateral radiographic views of the chest acquired. RADIATION DOSE: NA LIMITATIONS: none FINDINGS: LUNGS AND PLEURA: No opacities, masses or pneumothorax. No pleural effusion. MEDIASTINUM AND HILAR STRUCTURES: No masses or contour abnormalities. HEART AND VASCULAR STRUCTURES: Heart normal size. No evidence for failure. BONES: The osseous structures are stable in appearance. HARDWARE: Prior anterior median sternotomy and CABG. OTHER: No other significant finding. IMPRESSION: 1. No significant interval changes since the prior study dated 12/05/2019. No evidence of pneumothorax. No acute findings. TECHNICAL DOCUMENTATION: JOB ID: [id number] 2010 [employer]- All Rights Reserved Reading location - IP/workstation name: [email or web address]
[2020-08-20 09:10] LABS: ERYTHROCYTE SEDIMENTATION RATE 62 mm/hr (0-20)
--- NOTE | 2020-08-20 12:37 | RADIOLOGY REPORT (SQ) ---
EXAM DESCRIPTION: FOOT LEFT COMPLETE IMAGES COMPLETED DATE/TIME: 08/20/2020 7:56 am REASON FOR STUDY: NON-PRS CHRONIC ULCER OTH PRT LEFT FOOT W FAT LAYER EXPOSED L97.522 NON-PRS CHRON IC ULCER OTH PRT LEFT FOOT W FAT LAYER J93.9 PNEUMOTHORAX, UNSPECIFIED COMPARISON: 07/07/2020 NUMBER OF VIEWS: Three views. TECHNIQUE: AP, lateral and oblique radiographic images acquired of the left foot. LIMITATIONS: None. FINDINGS: MINERALIZATION: Normal. BONES: Amputation of the 5th digit. Cannot exclude some bone destruction in the head of the 5th meta tarsal. There is suggestion of some bone destruction in the head of the 4th metatarsal and the base of the 4th proximal phalanx. These findings concerning for osteomyelitis. JOINTS: No effusions. SOFT TISSUES: No soft tissue swelling. No foreign body. OTHER: No other significant finding. IMPRESSION: Findings concerning for osteomyelitis as described. TECHNICAL DOCUMENTATION: JOB ID: [id number] 2010 [employer]- All Rights Reserved Reading location - IP/workstation name: [email or web address]
== END ==
LOC: WC 07:32
PROVIDERS: ATTEND Nurse Practitioner Family
DX: L97.522 Non-pressure chronic ulcer of other part of left foot with fat layer exposed (principal); J93.9 Pneumothorax, unspecified
CPT/HCPCS: 36415; 71046; 80053; 85025; 85652; 86140

== ENCOUNTER → 2020-12-10 | Outpatient (CLI) | payer MEDICAID ==
[2020-12-10 07:44] LABS: ABSOLUTE BASOPHILS # (AUTO) 0.1 10^3/uL (0.0-0.2); ABSOLUTE EOSINOPHILS # (AUTO) 0.5 10^3/uL (0.0-0.6); ABSOLUTE LYMPHOCYTES (AUTO) 2.3 10^3/uL (0.5-4.7); ABSOLUTE MONOCYTES (AUTO) 0.6 10^3/uL (0.1-1.4); BASOPHILS % (AUTO) 0.9 % (0-2); EOSINOPHILS % (AUTO) 6.1 % (0-6); HEMATOCRIT 31.3 % (37.9-51.0); HEMOGLOBIN 10.1 g/dL (13.5-17.0); LYMPHOCYTES % (AUTO) 31.5 % (13-45); MEAN CORPUSCULAR HEMOGLOBIN 26.7 pg (27.0-33.4); MEAN CORPUSCULAR HGB CONC 32.2 g/dL (32.0-36.0); MEAN CORPUSCULAR VOLUME 83 fl (80-97); MONOCYTES % (AUTO) 7.7 % (3-13); PLATELET COUNT 363 10^3/uL (150-450); RED BLOOD COUNT 3.78 10^6/uL (4.35-5.55); RED CELL DISTRIBUTION WIDTH 16.8 % (11.5-14.0); SEGMENTED NEUTROPHILS % (AUTO) 53.8 % (42-78); TOTAL CELLS COUNTED % (AUTO) 100 %; WHITE BLOOD COUNT 7.4 10^3/uL (4.0-10.5)
[2020-12-10 07:45] LABS: APPEARANCE,URINE CLEAR; BILIRUBIN,URINE NEGATIVE (NEGATIVE); COLOR,URINE YELLOW; GLUCOSE, URINE NEGATIVE (NEGATIVE); KETONES,URINE NEGATIVE (NEGATIVE); LEUKOCYTE ESTERASE,URINE NEGATIVE (NEGATIVE); NITRITE,URINE NEGATIVE (NEGATIVE); PROTEIN,URINE NEGATIVE (NEGATIVE); URINE SPECIFIC GRAVITY 1.018; UROBILINOGEN,URINE NEGATIVE mg/dL (<2.0)
[2020-12-10 08:04] LABS: IRON(TIBC) 72.7 ug/dL (49-181)
[2020-12-11 13:37] LABS: MICROALBUMIN URINE 12.2 ug/mL (Not Estab.)
--- OUTSIDE RECORDS SUMMARY | 2020-12-12 09:24 | XMS REPORT ---
:1960 Author Organization [facility] Address [facility] [address] [place] [address] Care Team Providers Name Role Phone Unavailable Unavailable Unavailable Allergies, Adverse Reactions, Alerts This patient has no known allergies or adverse reactions. Medications This patient has no known medications. Problems This patient has no known problems. Procedures This patient has no known procedures. Results Test Description Test Time Test Comments Text Results Atomic Results Result Comments CULTURE, AEROBIC BACTERIA 2020-08-03 09:38:00 Test Item Value Reference Range Comments SOURCE: (test code = LEFT FOOT WOUND ABSCESS 41029-3) STATUS: (test code = FINAL 8251-1) ISOLATE 1: (test code = Heavy gr owth ofPseudomonas 51218-9) aeruginosa CULTURE, AEROBIC [id number] 09:38:00 Test Item Value Reference Range Comments ISOLATE (test code = 28635-4) Ps eudomonas aeruginosa CEFTAZIDIME (test code = 4~S 10853-9) CEFEPIME (test code = 00256-2) <=1~S CIPROFLOXACIN (test code = 2~R 06225-6) LEVOFLOXACIN (test code = >=8~R 79418-5) GENTAMICIN (test code = <=1~S 39238-5) IMIPENEM (test code = 91193-9) >=16~R PIPERACILLIN/TAZOBACTAM (test 8~S code = 10692-2) TOBRAMYCIN (test code = <=1~S Legend:S = Susceptible I = 73555-4) IntermediateR = Resistant NS = Not susceptible* = Not tested NR = Not reporte dNN = See antimicrobic com ments Social History This patient has no known social history. Vital Signs This patient has no known vital signs.
[2020-12-12 15:36] LABS: HGB A2 1.8 % (1.8-3.2); HGB SOLUBILITY RESULT Negative (Negative)
== END ==
LOC: OD 07:03
PROVIDERS: ATTEND Family Medicine Geriatric Medicine
DX: D64.9 Anemia, unspecified (principal); E11.21 Type 2 diabetes mellitus with diabetic nephropathy; Z79.899 Other long term (current) drug therapy
CPT/HCPCS: 36415; 81001; 82043; 82570; 82728; 83020; 83036; 83540; 83550; 84466; 85025